=== PATIENT | female | born 1965 | race Caucasian/White ===

== ENCOUNTER → 2017-04-29 | Outpatient (CLI) | payer OTHER ==
[~2017-04-29] MED LIST: ALPR0.5T PO; PANT20TA2 PO; ZLP10T PO
--- NOTE | 2017-04-30 20:18 | Diagnostic Imaging Report ---
Bilateral screening mammogram The current study was also evaluated with a Computer Aided Detection (CAD) system. Indication: Screening. No current complaints stated on the questionnaire. COMPARISON: 04/15/16. FINDINGS: The breasts are composed of heterogeneously dense parenchyma which may decrease mammographic sensitivity. No mass, architectural distortion or suspicious cluster of calcification seen. Allowing for technique and positional differences, no suspicious change is seen. IMPRESSION: No significant change. ACR BI-RADS Category 2: Benign findings. Result letter will be mailed to the patient. Note: At least 10% of breast cancer is not imaged by mammography. Dictated by: Dictated on workstation # [id number]
== END ==
LOC: RAD 10:03
PROVIDERS: ATTEND Nurse Practitioner Adult Health
DX: Z12.31 Encounter for screening mammogram for malignant neoplasm of breast (principal)
CPT/HCPCS: 77067

== ENCOUNTER 2018-02-04 08:44 | Emergency (ER) | payer OTHER ==
[~2018-02-04] VITALS: Ht 154.9 cm; Wt 64.9 kg
[2018-02-04 09:19] LABS: BILIRUBIN,URINE NEGATIVE (NEGATIVE); CLARITY,URINE CLEAR; COLOR,URINE YELLOW; GLUCOSE, URINE (UA) NEGATIVE (NEGATIVE); KETONES,URINE NEGATIVE (NEGATIVE); LEUKOCYTE ESTERASE ,URINE NEGATIVE (NEGATIVE); NITRITE,URINE NEGATIVE (NEGATIVE); PH,URINE 5 (5-9); PROTEIN,URINE NEGATIVE (NEGATIVE); UROBILINOGEN,URINE NORMAL (NORMAL)
--- OUTSIDE RECORDS SUMMARY | 2018-02-04 09:23 | XMS REPORT ---
Author Author SHWETA FOSTER Organization [facility] Address [address] [place] [address] Care Team Providers Care Ballet Professor Name Role Phone SHWETA FOSTER Unavailable PROBLEMS Type Condition ICD9-CM Code DNZ30-CP Code Onset Dates Condition Status SNOMED Code Problem Primary insomnia F51.01 Active 6832617 Problem Postmenopausal HRT (hormone replacement therapy) Z79.890 Active 42431419 Problem Acute seasonal allergic rhinitis due to other allergen J30.89 Active 42347663 Problem Other chronic pain G89.29 Active 48987510 Problem Wellness examination Z00.00 Active 905545389 Problem Anxiety disorder, unspecified type F41.9 Active 624338812 Problem Dorsalgia, unspecified M54.9 Active 642455413 Problem Chronic GERD K21.9 Active 132019417 ALLERGIES No Information SOCIAL HISTORY Never Assessed PLAN OF CARE VITAL SIGNS MEDICATIONS Medication Instructions Dosage Frequency Start Date End Date Duration Status Xanax 0.5 MG Orally Three times a day 1 tablet 8h 28 days Active Ambien 10 mg Orally Once a day 1 tablet at bedtime as needed 24h 28 days Active RESULTS No Results PROCEDURES No Known procedures IMMUNIZATIONS No Known Immunizations MEDICAL (GENERAL) HISTORY Type Description Date Medical History insomnia Medical History anxiety Medical History chronic back pain Surgical History partial hysterectomy 1996 Surgical History Right knee scope 2001 Surgical History Cholecystectomy 2002 Surgical History Bilaterial plantar fascia release 2013 Surgical History gastric sleeve Hospitalization History for surgery only
--- OUTSIDE RECORDS SUMMARY | 2018-02-04 09:23 | XMS REPORT ---
Author Author SHWETA FOSTER Organization [employer] Address Unknown Phone Unavailable Care Team Providers Care Twisthand Name Role Phone SHWETA FOSTER Unavailable Allergies No Known Allergies Problems No Known Problems Medications Medication Code System Code Instructions Start Date End Date Status Dosage Xanax [facility] [address]-75 0.5 MG Orally Three times a day 1 tablet Ambien [facility] [address]-01 10 MG Orally Once a day 1 tablet at bedtime as needed Results No Known Results Summary Purpose eClinicalWorks Submission
--- OUTSIDE RECORDS SUMMARY | 2018-02-04 09:23 | XMS REPORT ---
Author Author SHWETA FOSTER [facility] Address [address] [place] [address] Care Team Providers Care Chief Lock Tender Operator Name Role Phone SHWETA FOSTER Unavailable PROBLEMS Type Condition ICD9-CM Code KWD35-EE Code Onset Dates Condition Status SNOMED Code Problem Wellness examination Z00.00 Active 942391833 Problem Anxiety disorder, unspecified type F41.9 Active 855658426 Problem Primary insomnia F51.01 Active 8458714 Problem Postmenopausal HRT (hormone replacement therapy) Z79.890 Active 96330588 ALLERGIES Unknown Allergies SOCIAL HISTORY No smoking Hx information available PLAN OF CARE VITAL SIGNS MEDICATIONS Medication Instructions Dosage Frequency Start Date End Date Duration Status Doxycycline Hyclate 100 MG Orally every 12 hrs 1 capsule 12h Nov, Nov, 10 days Active RESULTS No Results PROCEDURES No Known procedures IMMUNIZATIONS No Known Immunizations
--- OUTSIDE RECORDS SUMMARY | 2018-02-04 09:23 | XMS REPORT ---
Author Author SHWETA FOSTER [facility] eClinicalWorks Address Unknown Phone Unavailable Care Team Providers Care Oil Well Cable Tool Driller Name Role Phone SHWETA FOSTER Unavailable Allergies No Known Allergies Problems Problem Type Condition Code Onset Dates Condition Status Problem Anxiety disorder, unspecified type F41.9 Active Problem Postmenopausal HRT (hormone replacement therapy) Z79.890 Active Problem Primary insomnia F51.01 Active Medications Medication Code System Code Instructions Start Date End Date Status Dosage Alprazolam [facility] 51164098206 0.5 MG Orally Twice a day 1 tablet Premarin [facility] [address]-63 0.3 MG Orally Once a day March 11, 2016 1 tablet Zolpidem Tartrate [facility] [address]-86 10 mg Orally at bedtime 1 tablet Results No Known Results Summary Purpose eClinicalWorks Submission
--- OUTSIDE RECORDS SUMMARY | 2018-02-04 09:23 | XMS REPORT ---
Author Author SHWETA FOSTER Organization [facility] Address [address] [place] [address] Care Team Providers Care Crm Marketing Specialist Name Role Phone SHWETA FOSTER Unavailable PROBLEMS Type Condition ICD9-CM Code IXA18-ZC Code Onset Dates Condition Status SNOMED Code Problem Primary insomnia F51.01 Active 3010574 Problem Postmenopausal HRT (hormone replacement therapy) Z79.890 Active 97433821 Problem Acute seasonal allergic rhinitis due to other allergen J30.89 Active 06251627 Problem Other chronic pain G89.29 Active 61785453 Problem Wellness examination Z00.00 Active 829197235 Problem Anxiety disorder, unspecified type F41.9 Active 481564470 Problem Dorsalgia, unspecified M54.9 Active 834208973 Problem Chronic GERD K21.9 Active 969345454 ALLERGIES No Information SOCIAL HISTORY Never Assessed PLAN OF CARE VITAL SIGNS MEDICATIONS No Known Medications RESULTS Name Result Date Reference Range Mammogram, Bilateral Screening 2017-04-29 PROCEDURES No Known procedures IMMUNIZATIONS No Known Immunizations MEDICAL (GENERAL) HISTORY Type Description Date Medical History insomnia Medical History anxiety Medical History chronic back pain Surgical History partial hysterectomy 1996 Surgical History Right knee scope 2001 Surgical History Cholecystectomy 2002 Surgical History Bilaterial plantar fascia release 2012 Surgical History gastric sleeve Hospitalization History for surgery only
--- OUTSIDE RECORDS SUMMARY | 2018-02-04 09:23 | XMS REPORT ---
Author Author SHWETA FOSTER [facility] Address [address] [place] [address] Care Team Providers Care Rib Puller Name Role Phone JUANITO FOSTERNETTE Unavailable PROBLEMS Type Condition ICD9-CM Code LUX13-BU Code Onset Dates Condition Status SNOMED Code Problem Wellness examination Z00.00 Active 739359349 Problem Anxiety disorder, unspecified type F41.9 Active 906171632 Problem Primary insomnia F51.01 Active 8548985 Problem Postmenopausal HRT (hormone replacement therapy) Z79.890 Active 32923052 ALLERGIES Substance Reaction Event Type Date Status Morphine Sulfate rash Drug Allergy Nov, Active SOCIAL HISTORY No smoking Hx information available PLAN OF CARE Activity Details Follow Up 3 Months Reason:anxiety VITAL SIGNS Height 61 in 2016-12-19 Weight 146.2 lbs 2016-12-19 Temperature 98.3 degrees Fahrenheit 2016-12-19 Heart Rate 66 bpm 2016-12-19 Respiratory Rate 16 2016-12-19 BMI 27.62 kg/m2 2016-12-19 Blood pressure systolic 110 mmHg 2016-12-19 Blood pressure diastolic 72 mmHg 2016-12-19 MEDICATIONS Medication Instructions Dosage Frequency Start Date End Date Duration Status Soma 350 MG Orally 2 times a day 1 tablet as needed 12h 10 Oct, 2015 Active Premarin 0.625 MG Orally Once a day TAKE ONE (1) TABLET BY MOUTH DAILY 24h 30 Active Xanax 0.5 MG Orally Three times a day 1 tablet 8h 28 days Active Ambien 10 mg Orally Once a day 1 tablet at bedtime as needed 24h 30 days Active RESULTS Name Result Date Reference Range TSH 2016-12-19 TSH 2.060 0.450-4.500 CBC 2016-12-19 WBC 5.1 3.4-10.8 RBC 4.45 3.77-5.28 Hemoglobin 13.1 11.1-15.9 Hematocrit 40.3 34.0-46.6 MCV 91 79-97 MCH 29.4 26.6-33.0 MCHC 32.5 31.5-35.7 RDW 13.8 12.3-15.4 Platelets 227 150-379 Neutrophils 57 Lymphs 33 Monocytes 9 Eos 1 Basos 0 Neutrophils (Absolute) 2.9 1.4-7.0 Lymphs (Absolute) 1.7 0.7-3.1 Monocytes(Absolute) 0.5 0.1-0.9 Eos (Absolute) 0.0 0.0-0.4 Baso (Absolute) 0.0 0.0-0.2 Immature Granulocytes 0 Immature Grans (Abs) 0.0 0.0-0.1 LIPID PANEL 2016-12-19 Cholesterol, Total 184 100-199 Triglycerides 64 0-149 HDL Cholesterol 93 >39 VLDL Cholesterol Jesus 13 5-40 LDL Cholesterol Calc 78 0-99 CMP 2016-12-19 Glucose, Serum 89 65-99 BUN 12 6-24 Creatinine, Serum 0.77 0.57-1.00 eGFR If NonAfricn Am 89 >59 eGFR If Africn Am 103 >59 BUN/Creatinine Ratio 16 9-23 Sodium, Serum 140 134-144 Potassium, Serum 4.1 3.5-5.2 Chloride, Serum 101 96-106 Carbon Dioxide, Total 24 18-29 Calcium, Serum 9.2 8.7-10.2 Protein, Total, Serum 7.1 6.0-8.5 Albumin, Serum 4.3 3.5-5.5 Globulin, Total 2.8 1.5-4.5 A/G Ratio 1.5 1.1-2.5 Bilirubin, Total 0.7 0.0-1.2 Alkaline Phosphatase, S 61 39-117 AST (SGOT) 14 0-40 ALT (SGPT) 10 0-32 PROCEDURES Procedure Date Ordered Related Diagnosis Body Site COMPLETE CBC W/AUTO DIFF WBC Dec 19, 2016 COMPREHEN METABOLIC PANEL Dec 19, 2016 ASSAY THYROID STIM HORMONE Dec 19, 2016 LIPID PANEL Dec 19, 2016 VENIPUNCT, ROUTINE* Dec 19, 2016 Preventive Care Est Pt. Age 40-64 Dec 19, 2016 IMMUNIZATIONS No Known Immunizations
--- OUTSIDE RECORDS SUMMARY | 2018-02-04 09:23 | XMS REPORT ---
Author Author SHWETA FOSTER [facility] eClinicalWorks Address Unknown Phone Unavailable Care Team Providers Care Glass Blower Name Role Phone SHWETA FOSTRE CP Unavailable Allergies, Adverse Reactions, Alerts Substance Reaction Event Type Morphine Sulfate rash Drug Allergy Problems Problem Type Condition Code Onset Dates Condition Status Problem Anxiety 300.00 Active Assessment Thoracic outlet syndrome G54.0 Active Problem Insomnia 780.52 Active Medications Medication Code System Code Instructions Start Date End Date Status Dosage Soma [facility] [address]-21 350 MG Orally 2 times a day Nov 08, 2015 1 tablet as needed Xanax [facility] [address]-05 0.5 MG Orally Three times a day 1 tablet Ambien [facility] [address]-45 10 MG Orally Once a day 1 tablet at bedtime as needed Procedures Procedure Coding System Code Date Office Visit, Est Pt., Level 3 CPT-4 69815 Nov 08, 2015 Vital Signs Date/Time: Nov 08, 2015 Temperature 97.6 F Weight 176.1 lbs Height 61 in BMI 33.27 Index Blood Pressure Diastolic 74 mmHg Blood Pressure Systolic 124 mmHg Cardiac Monitoring Heart Rate 72 bpm Results No Known Results Summary Purpose eClinicalWorks Submission
--- OUTSIDE RECORDS SUMMARY | 2018-02-04 09:23 | XMS REPORT ---
Author Author SHWETA FOSTER Organization [facility] Address [address] [place] [address] Care Team Providers Care Yard Manager Name Role Phone SHWETA FOSTER Unavailable PROBLEMS Type Condition ICD9-CM Code KKD80-WB Code Onset Dates Condition Status SNOMED Code Problem Acute seasonal allergic rhinitis due to other allergen J30.89 Active 45139454 Problem Wellness examination Z00.00 Active 847385030 Problem Postmenopausal HRT (hormone replacement therapy) Z79.890 Active 93655823 Problem Anxiety disorder, unspecified type F41.9 Active 272441683 Problem Primary insomnia F51.01 Active 5120403 ALLERGIES No Information SOCIAL HISTORY Never Assessed [...]
--- OUTSIDE RECORDS SUMMARY | 2018-02-04 09:23 | XMS REPORT ---
Author Author SHWETA FOSTER [facility] eClinicalWorks Address Unknown Phone Unavailable Care Team Providers Care Assisted Living Nursing Director Name Role Phone SHWETA FOSTER Unavailable Allergies No Known Allergies Problems Problem Type Condition Code Onset Dates Condition Status Problem Anxiety 300.00 Active Problem Insomnia 780.52 Active Medications Medication Code System Code Instructions Start Date End Date Status Dosage Promethazine-Codeine NDC [address]-28 6.25-10 MG/5ML Orally every 4-6 hours Nov 19, 2015 5 ml as needed Septra DS NDC 0 bid Nov 19, 2015 not defined Results No Known Results Summary Purpose eClinicalWorks Submission
--- OUTSIDE RECORDS SUMMARY | 2018-02-04 09:23 | XMS REPORT ---
Author Author SHWETA FOSTER [facility] eClinical[employer] Address Unknown Phone Unavailable Care Team Providers Care Bulk Cooler Installer Name Role Phone SHWETA FOSTER Unavailable Allergies No Known Allergies Problems Problem Type Condition Code Onset Dates Condition Status Problem Anxiety disorder, unspecified type F41.9 Active Problem Postmenopausal HRT (hormone replacement therapy) Z79.890 Active Problem Primary insomnia F51.01 Active Assessment Environmental allergies Z91.09 Active Medications Medication Code System Code Instructions Start Date End Date Status D[facility] [address]-09 20 mg Orally Once a day June 06, 2016Jun 1 tablet tid x3, bid x 3, d x 3 Results No Known Results Summary Purpose eClinicalWorks Submission
--- OUTSIDE RECORDS SUMMARY | 2018-02-04 09:23 | XMS REPORT ---
Author Author SHWETA FOSTER [facility] eClinicalWorks Address Unknown Phone Unavailable Care Team Providers Care Jewellery Designer Name Role Phone SHWETA FOSTER CP Unavailable Allergies, Adverse Reactions, Alerts Substance Reaction Event Type Morphine Sulfate rash Drug Allergy Problems Problem Type Condition ICD-9 Code Onset Dates Condition Status Problem Anxiety 300.00 Active Assessment Insomnia 780.52 Active Problem Insomnia 780.52 Active Assessment Anxiety 300.00 Active Medications Medication Code System Code Instructions Start Date End Date Status Dosage Ambien [facility] [address]-98 10 MG Orally Once a day 1 tablet at bedtime as needed Xanax [facility] [address]-14 0.5 MG Orally Three times a day 1 tablet Procedures Procedure Coding System Code Date Office Visit, Est Pt., Level 3 CPT-4 78442 Aug 14, 2015 Vital Signs Date/Time: Aug 14, 2015 Temperature 97.7 F Weight 206 lbs Height 61 in BMI 38.92 Index Blood Pressure Diastolic 68 mmHg Blood Pressure Systolic 112 mmHg Cardiac Monitoring Heart Rate 80 bpm Results No Known Results Summary Purpose eClinicalWorks Submission
--- OUTSIDE RECORDS SUMMARY | 2018-02-04 09:23 | XMS REPORT ---
Author SHWETA Ramesh [facility] eClinicalWorks Address Unknown Phone Unavailable Care Team Providers Care Metal Loader Name Role Phone SHWETA FOSTER Unavailable Allergies No Known Allergies Problems Problem Type Condition Code Onset Dates Condition Status Problem Anxiety disorder, unspecified type F41.9 Active Problem Postmenopausal HRT (hormone replacement therapy) Z79.890 Active Problem Primary insomnia F51.01 Active Medications Medication Code System Code Instructions Start Date End Date Status Dosage Alprazolam [facility] 41850060297 0.5 MG TAKE ONE TABLET BY MOUTH TWICE DAILY Results No Known Results Summary Purpose eClinicalWorks Submission
--- OUTSIDE RECORDS SUMMARY | 2018-02-04 09:23 | XMS REPORT ---
Author Author AFTAB BURROUGHS Organization [employer] Address Unknown Phone Unavailable Care Team Providers Care Pet Care Assistant Name Role Phone AFTAB BURROUGHS CP Unavailable Allergies No Known Allergies Problems No Known Problems Medications Medication Code System Code Instructions Start Date End Date Status Dosage Xanax [facility] [address]-67 0.5 MG Orally Three times a day 1 tablet Ambien [facility] [address]-09 10 MG Orally Once a day 1 tablet at bedtime as needed Results No Known Results Summary Purpose eClinicalWorks Submission
--- OUTSIDE RECORDS SUMMARY | 2018-02-04 09:23 | XMS REPORT ---
Author Author SHWETA FOSTER Organization [employer] Address Unknown Phone Unavailable Care Team Providers Care Transitional Care Manager Name Role Phone SHWETA FOSTER Unavailable Allergies No Known Allergies Problems No Known Problems Medications Medication Code System Code Instructions Start Date End Date Status Dosage Ambien [facility] [address]-21 10 MG Orally Once a day 1 tablet at bedtime as needed Xanax [facility] [address]-62 0.5 MG Orally Three times a day 1 tablet Results No Known Results Summary Purpose eClinicalWorks Submission
--- OUTSIDE RECORDS SUMMARY | 2018-02-04 09:23 | XMS REPORT ---
Author Author SHWETA FOSTER [facility] Address [address] [place] [address] Care Team Providers Care Principal Clerk Typist Name Role Phone SHWETA FOSTER Unavailable PROBLEMS Type Condition ICD9-CM Code BFX61-WL Code Onset Dates Condition Status SNOMED Code Problem Wellness examination Z00.00 Active 385045115 Problem Primary insomnia F51.01 Active 0202269 Problem Anxiety disorder, unspecified type F41.9 Active 696561946 Problem Postmenopausal HRT (hormone replacement therapy) Z79.890 Active 89641575 ALLERGIES Unknown Allergies SOCIAL HISTORY No smoking [...]
--- OUTSIDE RECORDS SUMMARY | 2018-02-04 09:24 | XMS REPORT | Continuity of Care Document ---
Author Author [facility] Organization [facility] Address Unknown Phone Unavailable Allergies Active Description Code Type Severity Reaction Onset Reported/Identified Relationship to Patient Clinical Status Yes loracarbef [id number] Drug Allergy Unknown N/A 12/18/2010 Yes morphine [id number] Drug Allergy Unknown N/A 12/18/2010 Medications There is no data. Problems Date Dx Coded Attending Type Code Diagnosis Diagnosed By 12/18/2010 Ot 564.00 UNSPEC CONSTIPATION 12/18/2010 Ot 787.3 FLATUL/ ERUCTAT/GAS PAIN 12/18/2010 Ot 789.03 ABDOMINAL PAIN, RIGHT LOWER QUADRANT 01/21/2013 Ot 535.50 UNSP GASTRITIS GASTRODUODENITIS W/O ME 01/21/2013 Ot 789.00 ABDOMINAL PAIN, UNSPECIFIED SITE 01/26/2015 Ot V72.84 01/31/2015 Ot 455.0 INT HEMORRHOID W/O COMPL 01/31/2015 Ot 455.3 EXT HEMORRHOID W/O COMPL 01/31/2015 Ot 562.10 DIVERTICULOSIS COLON (W/O MENT OF HEMORR 01/31/2015 Ot V76.51 SCREEN MAL NEOP-COLON 04/20/2015 GUILLERMINA MICHELLE MD Ot 530.11 REFLUX ESOPHAGITIS 04/20/2015 GUILLERMINA MICHELLE MD Ot 535.50 UNSP GASTRITIS GASTRODUODENITIS W/O ME 04/20/2015 GUILLERMINA MICHELLE MD Ot 553.3 DIAPHRAGMATIC HERNIA 05/16/2015 SHWETA FOSTER KIL[facility] FE[facility]ER Ot V76.12 05/16/2015 BURTON RUSSELL DO Ot 793.80 03/19/2016 Ot V76.12 OTH SCREEN MAMMO-MALIGN NEOPLASM OF MINGO 03/19/2016 Ot V76.12 OTH SCREEN MAMMO-MALIGN NEOPLASM OF [place] 03/19/2016 MOOKIE JONES, AMINATA Haney Ot 355.6 PLANTAR NERVE LESION 03/19/2016 NOMAN GUERRA, RICHA Haney Ot V76.12 OTH SCREEN MAMMO-MALIGN NEOPLASM OF [place] 03/19/2016 Ot V72.84 EXAM PRE- OPERATIVE NOS 03/19/2016 FOSTERSHWETA KILN FEEDER Ot V76.12 OTH SCREEN MAMMO-MALIGN NEOPLASM OF [place] 03/19/2016 COSENS DO, BURTON L Ot 793.80 UNSPEC ABNORMAL MAMMOGRAM 03/19/2016 GUILLERMINA MICHELLE MD Ot V72.84 EXAM PRE-OPERATIVE NOS 04/03/2016 SHWETA FOSTER KILN FEEDER Ot Z12.31 ENCNTR SCREEN MAMMOGRAM FOR MALIGNANT NE 04/04/2016 SHWETA FOSTER KILN FEEDER Ot Z12.31 ENCNTR SCREEN MAMMOGRAM FOR MALIGNANT NE 04/16/2016 SHWETA FOSTER KILN FEEDER Ot R92.8 OTH ABN AND INCONCLUSIVE FINDINGS ON DX 04/16/2016 SHWETA FOSTER KILN FEEDER Ot R92.8 OTH ABN AND INCONCLUSIVE FINDINGS ON DX 04/16/2016 SHWETA FOSTER KILN FEEDER Ot R92.8 OTH ABN AND INCONCLUSIVE FINDINGS ON DX 04/19/2016 Ot V76.12 OTH SCREEN MAMMO-MALIGN NEOPLASM OF [place] 04/19/2016 Ot V76.12 OTH SCREEN MAMMO-MALIGN NEOPLASM OF [place] 04/19/2016 MOOKIE CHEATHAM, AMINATA G Ot 355.6 PLANTAR NERVE LESION 04/19/2016 NOMAN GUERRA, RICHA Haney Ot V76.12 OTH SCREEN MAMMO-MALIGN NEOPLASM OF [place] 04/19/2016 Ot V72.84 EXAM PRE- OPERATIVE NOS 04/19/2016 SHWETA FOSTER KILN FEEDER Ot V76.12 OTH SCREEN MAMMO-MALIGN NEOPLASM OF [place] 04/19/2016 COSENS DO, BURTON L Ot 793.80 UNSPEC ABNORMAL MAMMOGRAM 04/19/2016 GUILLERMINA MICHELLE MD Ot V72.84 EXAM PRE-OPERATIVE NOS 05/01/2016 SHWETA FOSTER KILN FEEDER Ot Z12.31 ENCNTR SCREEN MAMMOGRAM FOR MALIGNANT NE 05/01/2016 SHWETA FOSTER KILN FEEDER Ot R92.8 OTH ABN AND INCONCLUSIVE FINDINGS ON DX 04/29/2017 SHWETA FOSTER KILN FEEDER Ot Z12.31 ENCNTR SCREEN MAMMOGRAM FOR MALIGNANT NE 04/29/2017 SHWETA FOSTER KILN FEEDER Ot R92.8 OTH ABN AND INCONCLUSIVE FINDINGS ON DX 05/01/2017 SHWETA FOSTER KILN FEEDER Ot Z12.31 ENCNTR SCREEN MAMMOGRAM FOR MALIGNANT NE 05/18/2017 SHWETA FOSTER KILN FEEDER Ot Z12.31 ENCNTR SCREEN MAMMOGRAM FOR MALIGNANT NE Procedures There is no data. Results There is no data. Encounters ACCT No. Visit Date/Time Discharge Status Pt. Type Provider Facility Loc./Unit Complaint [id number] 04/29/2017 10:03:00 04/29/2017 23:59:59 CLS Outpatient GABRIEL FOSTERJohn Davis [facility]IL[facility] RAD SCREENING [id number] 04/15/2016 08:02:00 04/15/2016 23:59:59 CLS Outpatient SHWETA FOSTER [facility] RAD ABNORMAL MAMMO [id number] 04/03/2016 07:35:00 04/03/2016 23:59:59 CLS Outpatient FOSTERSHWETA NUÑEZ [facility] RAD SCREENING [id number] 04/20/2015 08:55:00 04/20/2015 11:45:00 DIS Out[facility] [id number] 04/18/2015 06:10:00 04/18/2015 23:59:59 CLS Outpatient GUILLERMINA MICHELLE MD [facility] PREOP [id number] 04/04/2015 08:17:00 04/04/2015 23:59:59 CLS Outpatient BURTON RUSSELL DO [facility] RAD [id number] 03/28/2015 07:32:00 03/28/2015 23:59:59 CLS Outpatient SHWETA FOSTER [facility] RAD [id number] 01/12/2014 09:04:00 01/12/2014 23:59:59 CLS Outpatient RICHA TINEO MD [facility] RAD [id number] 09/28/2013 15:39:00 09/28/2013 23:59:59 [facility] Outpatient AMINATA DAMICO DPM [facility] [id number] 02/20/2015 12:34:00 Document Registration [id number] 01/31/2015 07:39:00 Document Registration [id number] 01/25/2015 06:22:00 Document Registration [id number] 01/21/2013 08:31:00 Document Registration [id number] 09/01/2012 15:28:00 Document Registration [id number] 08/18/2011 07:21:00 Document Registration [id number] 12/18/2010 08:04:00 Document Registration
--- OUTSIDE RECORDS SUMMARY | 2018-02-04 09:24 | XMS REPORT ---
Author Author SHWETA FOSTER Organization [facility] Address [address] [place] [address] Care Team Providers Care Ancillary Specialist Name Role Phone SHWETA FOSTER Unavailable PROBLEMS Type Condition ICD9-CM Code TBG75-NT Code Onset Dates Condition Status SNOMED Code Problem Wellness examination Z00.00 Active 011017121 Problem Anxiety disorder, unspecified type F41.9 Active 601340126 Problem Primary insomnia F51.01 Active 3244347 Problem Postmenopausal HRT (hormone replacement therapy) Z79.890 Active 63087149 ALLERGIES No Information SOCIAL HISTORY Never Assessed PLAN OF CARE VITAL SIGNS MEDICATIONS Medication Instructions Dosage Frequency Start Date End Date Duration Status Xanax 0.5 MG Orally Three times a day 1 tablet 8h 28 days Active Premarin 0.625 MG Orally Once a day TAKE ONE (1) TABLET BY MOUTH DAILY 24h 30 Active Ambien 10 mg Orally Once a [...]
--- OUTSIDE RECORDS SUMMARY | 2018-02-04 09:24 | XMS REPORT ---
Author Author SHWETA FOSTER [facility] eClinicalWorks Address Unknown Phone Unavailable Care Team Providers Care Montessori Paraprofessional Name Role Phone SHWETA FOSTER Unavailable Allergies No Known Allergies Problems Problem Type Condition Code Onset Dates Condition Status Problem Anxiety 300.00 Active Problem Insomnia 780.52 Active Medications Medication Code System Code Instructions Start Date End Date Status Dosage Ambien [facility] [address]-67 10 MG Orally Once a day 1 tablet at bedtime as needed Xanax [facility] [address]-80 0.5 MG Orally Three times a day 1 tablet Results No Known Results Summary Purpose eClinicalWorks Submission
--- OUTSIDE RECORDS SUMMARY | 2018-02-04 09:24 | XMS REPORT ---
Author Author SHWETA FOSTER [facility] Address [address] [place] [address] Care Team Providers Care Hair Spinner Name Role Phone SHWETA FOSTER Unavailable PROBLEMS Type Condition ICD9-CM Code MGG10-NX Code Onset Dates Condition Status SNOMED Code Problem Wellness examination Z00.00 Active 143198793 Problem Anxiety disorder, unspecified type F41.9 Active 710744823 Problem Primary insomnia F51.01 Active 4476588 Problem Postmenopausal HRT (hormone replacement therapy) Z79.890 Active 63709244 ALLERGIES Unknown Allergies SOCIAL HISTORY No smoking Hx information available PLAN OF CARE VITAL SIGNS MEDICATIONS Medication Instructions Dosage Frequency Start Date End Date Duration Status Premarin 0.3 MG Orally Once a day 1 tablet 24h Feb, 30 day(s) Active RESULTS No Results PROCEDURES No Known procedures IMMUNIZATIONS No Known Immunizations
--- OUTSIDE RECORDS SUMMARY | 2018-02-04 09:24 | XMS REPORT ---
Author Author SHWETA FOSTER [facility] eClinicalWorks Address Unknown Phone Unavailable Care Team Providers Care Basketball Commentator Name Role Phone SHWETA FOSTER Unavailable Allergies No Known Allergies Problems Problem Type Condition Code Onset Dates Condition Status Problem Anxiety disorder, unspecified type F41.9 Active Problem Postmenopausal HRT (hormone replacement therapy) Z79.890 Active Problem Primary insomnia F51.01 Active Medications Medication Code System Code Instructions Start Date End Date Status Dosage Nabumetone [facility] [address]-20 500 MG Orally Twice a day Sep 25, 2016Sep 1 tablet Results No Known Results Summary Purpose eClinicalWorks Submission
[2018-02-04 09:31] LABS: BACTERIA,URINE NEGATIVE /HPF; SQUAMOUS EPITHELIAL CELL,UR 25-50 /HPF; WBC,URINE 0-2 /HPF
[2018-02-04 09:55] LABS: BASOPHILS % (AUTO) 1 % (0-10); EOSINOPHILS # (AUTO) 0.1 10^3/uL (0.0-0.3); EOSINOPHILS % (AUTO) 1 % (0-10); HEMATOCRIT 37 % (35-52); HEMOGLOBIN 12.7 G/DL (11.5-16.0); LYMPHOCYTES # (AUTO) 1.7 X 10^3 (1.0-4.0); LYMPHOCYTES % (AUTO) 40 % (12-44); MEAN CORPUSCULAR HEMOGLOBIN 31 PG (25-34); MEAN CORPUSCULAR HGB CONC 34 G/DL (32-36); MEAN CORPUSCULAR VOLUME 91 FL (80-99); MEAN PLATELET VOLUME 10.7 FL (7.4-10.4); MONOCYTES # (AUTO) 0.4 X 10^3 (0.0-1.0); MONOCYTES % (AUTO) 9 % (0-12); NEUTROPHILS # (AUTO) 2.1 X 10^3 (1.8-7.8); NEUTROPHILS % (AUTO) 50 % (42-75); PLATELET COUNT 204 10^3/uL (130-400); RED BLOOD COUNT 4.09 10^6/uL (4.35-5.85); RED CELL DISTRIBUTION WIDTH 13.4 % (10.0-14.5); WHITE BLOOD COUNT 4.3 10^3/uL (4.3-11.0)
--- NOTE | 2018-02-04 10:11 | ED Abdominal Pain ---
General Chief Complaint: Abdominal/GI Problems Stated Complaint: ABD PAIN Nursing Triage Note: AMB TO ROOM C/O ONSET OF R FLANKK PAIN LAST NIGHT AT 8PM Sepsis Screen: No Definite Risk Source of Information: Patient Exam Limitations: No Limitations History of Present Illness Date Seen by Provider: Feb 04, 2018 Time Seen by Provider: 10:04 Initial Comments The patient is a 52-year-old white female who developed right lower quadrant abdominal pain last evening. This persisted through the night. She had a great deal of difficulty sleeping. The only comfortable place was on her back. She had a bowel movement this morning. There has been no nausea or vomiting. It is noted that she has a gastric sleeve for weight loss. There has been no fever and no chills. She reported that this morning as she drove to work every [place] she works for a [employer] and her nurses insisted that she come here for further evaluation. Caused her considerable pain in the right lower quadrant. Timing/Duration: 12-24 Hours Severity/Quality: Moderate Location: [facility] Allergies and Home Medications Allergies Coded Allergies: loracarbef (Unverified Allergy, Unknown, 12/18/10) morphine (Unverified Allergy, Unknown, 12/18/10) Home Medications Alprazolam 0.5 Mg Tablet, 0.5 MG PO NEEDED, (Reported) Pantoprazole Sodium 20 Mg Tablet.dr, 40 MG PO DAILY Prescribed by: GUILLERMINA MICHELLE on 04/20/15 1036 Zolpidem Tartrate 10 Mg Tab, 10 MG PO HS, (Reported) Patient Home Medication List Home Medication List Reviewed: Yes Review of Systems Constitutional: see HPI EENTM: No Symptoms Reported Respiratory: No Symptoms Reported Cardiovascular: No Symptoms Reported Gastrointestinal: See HPI Genitourinary: No Symptoms Reported Musculoskeletal: no symptoms reported Skin: no symptoms reported Psychiatric/Neurological: No Symptoms Reported Past Nxdflen-Dkpmpi-Geotoj Hx Patient Social History Alcohol Use: Denies Use Recreational Drug Use: No Smoking Status: Never a Smoker Recent Foreign Travel: No Contact w/Someone Who Travel: No Recent Infectious Disease Expo: No Surgeries History of Surgeries: Yes (GB; PARTIAL HYSTERECTOMY; ELDA. 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 Gastrointestinal History of Gastrointestinal Di: No Musculoskeletal History of Musculoskeletal Dis: No Endocrine History of Endocrine Disorders: No Cancer History of Cancer: No Physical Exam Vital Signs VS - Last 72 Hours, by Label 02/04/18 08:57 Temp 97.9 Pulse 68 Resp 18 B/P (MAP) 139/92 (108) Pulse Ox 100 Capillary Refill : Less Than 3 Seconds General Appearance: moderate distress HEENT: normal ENT inspection Neck: full range of motion Respiratory: chest non-tender, lungs clear, normal breath sounds, no respiratory distress, no accessory muscle use Cardiovascular: normal peripheral pulses, regular rate, rhythm, no edema, no gallop, no JVD, no murmur Gastrointestinal: other (exquisitely tender to palpation at McBurney's point) Extremities: normal range of motion, non-tender, normal inspection, no pedal edema, no calf tenderness, normal capillary refill, pelvis stable Back: normal inspection Neurologic/Psychiatric: pattern drum 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-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 nml as tested, no motor/sensory deficits, alert, normal mood/affect, oriented x 3 Skin: normal color, warm/dry Lymphatic: no adenopathy Progress/Results/Core Measures Results/Orders Lab Results Laboratory Tests Test 02/04/18 09:04 02/04/18 09:43 Range/Units Urine Color YELLOW Urine Clarity CLEAR Urine pH 5 5-9 Urine Specific Hettinger 1.010 L 1.016-1.022 Urine Protein NEGATIVE NEGATIVE Urine Glucose (UA) NEGATIVE NEGATIVE Urine Ketones NEGATIVE NEGATIVE Urine Nitrite NEGATIVE NEGATIVE Urine Bilirubin NEGATIVE NEGATIVE Urine Urobilinogen NORMAL NORMAL MG/DL Urine Leukocyte Esterase NEGATIVE NEGATIVE Urine RBC (Auto) NEGATIVE NEGATIVE Urine RBC NONE /HPF Urine WBC 0-2 /HPF Urine Squamous Epithelial Cells 25-50 H /HPF Urine Crystals NONE /LPF Urine Bacteria NEGATIVE /HPF Urine Casts NONE /LPF Urine Mucus NEGATIVE /LPF Urine Culture Indicated NO White Blood Count 4.3 4.3-11.0 10^3/uL Red Blood Count 4.09 L 4.35-5.85 10^6/uL Hemoglobin 12.7 11.5-16.0 G/DL Hematocrit 37 35-52 % Mean Corpuscular Volume 91 80-99 FL Mean Corpuscular Hemoglobin 31 25-34 PG Mean Corpuscular Hemoglobin Concent 34 32-36 G/DL Red Cell Distribution Width 13.4 10.0-14.5 % Platelet Count 204 130-400 10^3/uL Mean Platelet Volume 10.7 H 7.4-10.4 FL Neutrophils (%) (Auto) 50 42-75 % Lymphocytes (%) (Auto) 40 12-44 % Monocytes (%) (Auto) 9 0-12 % Eosinophils (%) (Auto) 1 0-10 % Basophils (%) (Auto) 1 0-10 % Neutrophils # (Auto) 2.1 1.8-7.8 X 10^3 Lymphocytes # (Auto) 1.7 1.0-4.0 X 10^3 Monocytes # (Auto) 0.4 0.0-1.0 X 10^3 Eosinophils # (Auto) 0.1 0.0-0.3 10^3/uL Basophils # (Auto) 0.0 0.0-0.1 10^3/uL Sodium Level 140 135-145 MMOL/L Potassium Level 4.5 3.6-5.0 MMOL/L Chloride Level 108 H 98-107 MMOL/L Carbon Dioxide Level 25 21-32 MMOL/L Anion Gap 7 5-14 MMOL/L Blood Urea Nitrogen 11 7-18 MG/DL Creatinine 0.79 0.60-1.30 MG/DL Estimat Glomerular Filtration Rate > 60 BUN/Creatinine Ratio 14 Glucose Level 84 70-105 MG/DL Calcium Level 8.9 8.5-10.1 MG/DL Total Bilirubin 0.5 0.1-1.0 MG/DL Aspartate Amino Transf (AST/SGOT) 17 5-34 U/L Alanine Aminotransferase (ALT/SGPT) 10 0-55 U/L Alkaline Phosphatase 43 40-136 U/L Total Protein 6.6 6.4-8.2 GM/DL Albumin 3.6 3.2-4.5 GM/DL Lipase 18 8-78 U/L My Orders Orders - EARLENE CHACON MD Ua Culture If Indicated (02/04/18 09:08) Cbc With Automated Diff (02/04/18 09:34) Comprehensive Metabolic Panel (02/04/18 09:34) Lipase (02/04/18 09:34) Ct Abd/Pelv W (Appendicitis) (02/04/18 10:03) Iohexol Injection (Omnipaque 350 Mg/Ml 1 (02/04/18 10:15) Ns (Ivpb) (Sodium Chloride 0.9%) (02/04/18 10:15) Fentanyl Injection (Sublimaze Injection (02/04/18 10:15) Hydromorphone Injection (Dilaudid Inject (02/04/18 11:00) Medications Given in ED Current Medications Medications Dose Ordered Sig/Dion Route Start Time Stop Time Status Last Admin Dose Admin Fentanyl Citrate 25 mcg Q1H PRN IVP 02/04/18 10:15 02/04/18 10:16 25 MCG Hydromorphone HCl 1 mg Q4H PRN IVP 02/04/18 11:00 02/04/18 10:56 1 MG Iohexol 100 ml ONCE ONCE IV 02/04/18 10:15 02/04/18 10:16 DC 02/04/18 11:00 100 ML Sodium Chloride 250 ml ONCE ONCE IV 02/04/18 10:15 02/04/18 10:16 DC 02/04/18 11:00 80 ML Vital Signs/I&O Vital Sign - Last 12Hours 02/04/18 08:57 Temp 97.9 Pulse 68 Resp 18 B/P (MAP) 139/92 (108) Pulse Ox 100 Blood Pressure Mean: 108 Departure Impression Impression: Primary Impression: right lower quadrant pain Additional Impression: right ovarian cyst Disposition: 01 HOME, SELF-CARE Condition: Stable/Unchanged Departure-Patient Inst. Decision time for Depature: 12:09 Referrals: [facility] (PCP/Family) Primary Care Physician Patient Instructions: No Instuctions Given Add. Discharge Instructions: All discharge instructions reviewed with patient and/or family. Voiced understanding. Use ibuprofen 600 mg 2 or 3 times daily or naproxen 440 mg twice daily as needed for pain. If pain related to the apparent no ovarian cyst one would expect this to johnnie within the week. If continued pain see Dr. Corona for second opinion EARLENE CHACON MD Feb 04, 2018 10:10
[2018-02-04] MEDS ORDERED: NS 250 ML (IVPB) BAG IV ONE (10:15)
[2018-02-04] MEDS ORDERED: IOHEXOL 350 MG/ML 100 ML (OMNIPAQUE 350) VIAL IV ONE (10:15)
[2018-02-04] MEDS ORDERED: fentaNYL INJECTION 100 MCG/2 ML AMP IVP PRN (10:15)
[2018-02-04 10:16] LABS: ALANINE AMINOTRANSFERASE 10 U/L (0-55); ALBUMIN 3.6 GM/DL (3.2-4.5); ALKALINE PHOSPHATASE 43 U/L (40-136); BILIRUBIN,TOTAL 0.5 MG/DL (0.1-1.0); BUN/CREATININE RATIO 14; CALCIUM 8.9 MG/DL (8.5-10.1); CARBON DIOXIDE 25 MMOL/L (21-32); CHLORIDE 108 MMOL/L (98-107); CREATININE SERUM 0.79 MG/DL (0.60-1.30); GFR ESTIMATED > 60; GLUCOSE 84 MG/DL (70-105); LIPASE 18 U/L (8-78); POTASSIUM 4.5 MMOL/L (3.6-5.0); SODIUM 140 MMOL/L (135-145); TOTAL PROTEIN 6.6 GM/DL (6.4-8.2)
[2018-02-04] MEDS ORDERED: HYDROmorphone (DILAUDID) 2 MG/ML VIAL IVP PRN (11:00)
--- NOTE | 2018-02-04 11:50 | Diagnostic Imaging Report ---
PROCEDURE: CT abdomen and pelvis with contrast, rule out appendicitis. TECHNIQUE: Multiple contiguous axial images were obtained through the abdomen and pelvis after the administration of intravenous contrast. INDICATION: Right lower quadrant pain starting last night. CORRELATION STUDY: 01/21/2013, 11/28/2010 FINDINGS: The lung bases with minimal dependent atelectasis, otherwise clear. Heart size is normal. Small hiatal hernia. There are surgical changes of the stomach. Liver without focal lesion. Gallbladder absent. There is mild prominence about the extrahepatic and intrahepatic biliary tree. Pancreas, spleen and adrenal glands appear relatively stable without acute abnormality. Abdominal aorta normal in contour. The kidneys with normal enhancement. No hydronephrosis or obstruction. 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 Distal ureters could not be completely traced. There is moderate severity fecal retention. The cecum sits low within the pelvis and crosses the midline. The appendix is located in the left lower quadrant and has an unremarkable appearance. The uterus is absent. There is a 2.6 x 2.3 cm cystic mass in the right posterior pelvis, may be very slightly increased, currently measuring 2.7 x 2.8 cm; previously 2.6 x 2.1 cm. Urinary bladder is unremarkable. Irregularity of the superior T12 endplate appears nonacute. IMPRESSION: 1. Negative for acute abnormality of the abdomen and/or pelvis. No findings to suggest acute appendicitis. 2. No evidence for obstructive uropathy. There is incidental note made of a right-sided duplicated collecting system with the distal ureters unable to be completely visualized. 3. Right pelvic cystic mass perhaps very slightly increased in size and likely associated with the right ovary. Dictated by: Dictated on workstation # [id number]
[2018-02-04 12:45] VITALS: BP 103/64
== END 2018-02-04 12:50 | disposition home or self-care (01) ==
LOC: EDUNIT# 08:44 → ER 08:45
DX: N83.201 Unspecified ovarian cyst, right side (principal); Z88.6 Allergy status to analgesic agent; Z88.8 Allergy status to other drugs, medicaments and biological substances; Z90.711 Acquired absence of uterus with remaining cervical stump
CPT/HCPCS: 36415; 74177; 80053; 81000; 83690; 85025; 96374; 96375

== ENCOUNTER → 2018-05-04 | Outpatient (CLI) | payer OTHER ==
[~2018-05-04] MED LIST changes: +ALPR0.5T7 PO; +ESTR1TAB27 PO; +FEXO1TAB43 PO; +MULT-153 PO; +OMEP20CA12 PO; +OXYC-197 PO
--- NOTE | 2018-05-04 10:22 | Diagnostic Imaging Report ---
Indication: Screening. The current study was also evaluated with a Computer Aided Detection (CAD) system. Comparison made with prior examination of 04/29/2017 back through 08/18/2011 3D tomosynthesis was also performed and reviewed. Findings: There is heterogeneously dense fibroglandular tissue bilaterally. There is a well circumscribed ovoid area in the retroareolar region right breast on CC projection which is not definitively appreciated in the prior exam. There are few benign type calcifications. There is no other dominant mass, spiculated lesion or suspicious calcification identified. Skin, nipples and axillae are unremarkable. Impression: Category 0, further imaging needed. Circumscribed ovoid density in the retroareolar region of the right breast best seen on tomosynthesis views. Further evaluation with spot compression views and if warranted ultrasound recommended to exclude the possibility of discrete underlying mass. ACR BI-RADS Category 0: Incomplete. (Needs additional imaging evaluation). Result letter will be mailed to the patient. Note: At least 10% of breast cancer is not imaged by mammography. Dictated by: Dictated on workstation # [id number]
== END ==
LOC: RAD 07:33
PROVIDERS: ATTEND Nurse Practitioner Family
DX: Z12.31 Encounter for screening mammogram for malignant neoplasm of breast (principal)
CPT/HCPCS: 77067

== ENCOUNTER 2018-05-20 05:31 | Outpatient (CLI) | payer OTHER ==
[~2018-05-20] VITALS: Ht 154.9 cm; Wt 62.6 kg
[~2018-05-20 05:31] MED LIST changes: -ALPR0.5T7 PO; -ESTR1TAB27 PO; -FEXO1TAB43 PO; -MULT-153 PO; -OMEP20CA12 PO; -OXYC-197 PO
[2018-05-20] MEDS ORDERED: OMEP20CA12 PO (09:52)
[2018-05-20] MEDS ORDERED: ESTR1TAB27 PO (09:52)
[2018-05-20] MEDS ORDERED: FEXO1TAB43 PO (09:52)
[2018-05-20] MEDS ORDERED: ALPR0.5T7 PO (09:52)
[2018-05-20] MEDS ORDERED: MULT-153 PO (09:52)
[2018-05-21] MEDS ORDERED: OXYC-197 PO (16:19)
== END 2018-05-20 10:00 | disposition home or self-care (01) ==
LOC: PREOP 05:31
PROVIDERS: ATTEND Obstetrics & Gynecology
DX: Z29.8 Encounter for other specified prophylactic measures (principal)

== ENCOUNTER → 2019-02-16 | Outpatient (CLI) | payer OTHER ==
[~2019-02-16] MED LIST changes: +ALPR0.5T7 PO; +ESTR1TAB27 PO; +FEXO1TAB43 PO; +HOLD METFORMIN - RECEIVED CONTRAST 20 ML VIAL IV SCH; +IOHEXOL 350 MG/ML 100 ML (OMNIPAQUE 350) VIAL IV ONE; +MULT-153 PO; +OMEP20CA12 PO; +OXYC1TAB87 PO
[2019-02-16 13:30] LABS: BUN/CREATININE RATIO 13; CREATININE SERUM 0.82 MG/DL (0.60-1.30); GFR ESTIMATED > 60
--- NOTE | 2019-02-16 14:19 | Diagnostic Imaging Report ---
PROCEDURE: CT abdomen and pelvis with contrast. TECHNIQUE: Multiple contiguous axial images were obtained through the abdomen and pelvis after administration of intravenous contrast. Auto Exposure Controls were utilized during the CT exam to meet ALARA standards for radiation dose reduction. INDICATION: Mid to low abdominal pain radiating to the right upper quadrant. The patient also has had diarrhea for 5 weeks. COMPARISON: 02/04/2018. FINDINGS: The lung bases are clear. No discrete liver mass is identified. The gallbladder is surgically absent. No biliary ductal dilatation is seen. The pancreas and spleen are unremarkable. No adrenal mass is identified. The kidneys are unremarkable. The aorta is nonaneurysmal. The small and large bowel loops are of normal caliber. There is no evidence of obstruction. There is no ascites or fluid collection. The bladder is unremarkable. No abdominal or pelvic lymphadenopathy is seen. No inflammatory process is detected. IMPRESSION: Unremarkable CT of the abdomen and pelvis. No acute abnormality is detected. Dictated by: Dictated on workstation # [id number]
== END ==
LOC: RAD 13:02
PROVIDERS: ATTEND Obstetrics & Gynecology
DX: R10.31 Right lower quadrant pain (principal); R19.7 Diarrhea, unspecified; Z90.49 Acquired absence of other specified parts of digestive tract
CPT/HCPCS: 36415; 74177; 82565; 84520

== ENCOUNTER 2019-02-28 06:13 | Outpatient (CLI) | payer OTHER ==
[~2019-02-28] VITALS: Ht 154.9 cm; Wt 62.6 kg
[~2019-02-28 06:13] MED LIST changes: -HOLD METFORMIN - RECEIVED CONTRAST 20 ML VIAL IV SCH; -IOHEXOL 350 MG/ML 100 ML (OMNIPAQUE 350) VIAL IV ONE
[2019-02-28] MEDS ORDERED: VIT1TABL82 PO (10:13)
[2019-02-28] MEDS ORDERED: MAGN250T13 PO (10:13)
== END 2019-02-28 10:26 | disposition home or self-care (01) ==
LOC: PREOP 06:13
PROVIDERS: ATTEND Obstetrics & Gynecology
DX: Z01.818 Encounter for other preprocedural examination (principal)

== ENCOUNTER 2019-03-04 12:21 | Day surgery (SDC) | payer OTHER ==
[~2019-03-04] VITALS: Ht 154.9 cm; Wt 62.6 kg
[~2019-03-04 12:21] MED LIST changes: +MAGN250T13 PO; +VIT1TABL82 PO
--- OUTSIDE RECORDS SUMMARY | 2019-03-04 12:25 | XMS REPORT ---
Author Author AMINATA ROUSSEAU [facility] Address [address] [place] [address] Care Team Providers Care Marker Assembler Name Role Phone AMINATA ROUSSEAU Unavailable PROBLEMS Type Condition ICD9-CM Code TCI19-DT Code Onset Dates Condition Status SNOMED Code Problem Postmenopausal HRT (hormone replacement therapy) Z79.890 Active 42443022 Problem Anxiety disorder, unspecified type F41.9 Active 645917766 Problem Primary insomnia F51.01 Active 0762264 Problem History of bariatric surgery Z98.84 Active 975975853 Problem Acute seasonal allergic rhinitis due to other allergen J30.89 Active 46704863 Problem Chronic GERD K21.9 Active 952455660 Problem Wellness examination Z00.00 Active 006459887 Problem Other chronic pain G89.29 Active 89644468 Problem Dorsalgia, unspecified M54.9 Active 110027338 ALLERGIES No Information ENCOUNTERS Encounter Location Date Diagnosis [place] [address] [address] Feb, [place] [address] [place] [id number] [place] [address] Jan, Other chronic pain G89.29 ; History of bariatric surgery Z98.84 ; Stomatitis K12.1 and Anxiety disorder, unspecified type F41.9 [facility] [address] [place] [id number] [place] [address] Jan, Primary insomnia F51.01 [place] [address] [address] 14 Dec, 2017 Primary insomnia F51.01 [place] [address] [place] [id number] [place] [address] Nov, Anxiety disorder, unspecified type F41.9 [place] [address] [place] [id number] [place] [address] Aug, Primary insomnia F51.01 ; Other chronic pain G89.29 ; Dorsalgia, unspecified M54.9 and Chronic GERD K21.9 [facility] [address] [place] [id number] [place] [address] 14566- 0985 Aug, Anxiety disorder, unspecified type F41.9 [facility] [address] [place] [address] [id number] [place] [address]- [address] Aug, Anxiety disorder, unspecified type F41.9 [facility] [address] [place] [id number] [place] [address] Aug, Acute seasonal allergic rhinitis due to other allergen J30.89 [place] [address] [place] [id number] [place] [address]- [address] Jun, Anxiety disorder, unspecified type F41.9 [facility] [address] [place] [id number] [place] [address] May, Anxiety disorder, unspecified type F41.9 [place] [address] [place] [id number] [place] [address] Apr, [facility] [address] [place] [id number] [place] [address] Apr, Anxiety disorder, unspecified type F41.9 and Primary insomnia F51.01 [place] [address] [place] [id number] [place] [address] 7[address]88- 5849 Apr, Primary insomnia F51.01 and Anxiety disorder, unspecified type F41.9 [place] [address] [place] [id number] [place] [address] March, Breast cancer screening Z12.39 [place] [address] [place] [id number] [place] [address] March, Anxiety disorder, unspecified type F41.9 and Primary insomnia F51.01 [place] [address] [place] [address] [address] Feb, Anxiety disorder, unspecified type F41.9 and Primary insomnia F51.01 [facility] [address] [place] [id number] [address] Jan, Anxiety disorder, unspecified type F41.9 ; Primary insomnia F51.01 and Postmenopausal HRT (hormone replacement therapy) Z79.890 [facility] [address] [place] [id number] [place] [address] 2546 Nov, Postmenopausal HRT (hormone replacement therapy) Z79.890 ; Primary insomnia F51.01 ; Anxiety disorder, unspecified type F41.9 and Wellness examination Z00.00 [facility] [address] [address] Nov, [facility] [address] [place] [id number] [address] Nov, [facility] [address] [place] [id number] [place] [address] 2540 Nov, Postmenopausal HRT (hormone replacement therapy) Z79.890 [facility] [id number] [address] Oct, [facility] [id number] [address] Aug, [facility] [id number] [address] Aug, [facility] [id number] [address] Jul, [facility] [address] [place] [id number] [address] May, [facility] [address] [address] May, Environmental allergies Z91.09 [facility] [address] [address] May, [facility] [address] [place] [address]46- [address] Apr, Postmenopausal HRT (hormone replacement therapy) Z79.890 ; Anxiety disorder, unspecified type F41.9 and Primary insomnia F51.01 [facility] [address] [place] [address] Apr, Acute non-recurrent maxillary sinusitis J01.00 [facility] [address] [place] [id number] [place] [address]- 1413 Apr, Insomnia, unspecified G47.00 and Anxiety disorder, unspecified F41.9 [facility] [address] [place] [id number] [place] [address]- 28[address] March, Postmenopausal HRT (hormone replacement therapy) Z79.890 [facility] [address] [place] [id number] [place] [address]- [address] Feb, [facility] [address] [id number] [place] [address] 94957- 67[address] Feb, [facility] [address] [place] [id number] [place] [address] 12[address]- 6076 Jan, Anxiety 300.00 and Motion sickness T75.3XXA [facility] [address] [place] [id number] [place] [address]- 98[address] Jan, [facility] [address] [place] [id number] [place] [address] 34566- 3361 Dec, [facility] [address] [place] [id number] [place] [address] 13696- 8[address] Oct, [facility] [address] [address] Oct, Thoracic outlet syndrome G54.0 [facility] [address] [place] [id number] [place] [address] 45278- 9012 Aug, [facility] [address] [place] [id number] [place] [address]37- 2226 Jul, Insomnia 780.52 and Anxiety 300.00 [facility] [address] [place] [id number] [address] Jun, [facility] [address] [place] [id number] [address] Jun, [facility] [address] [place] [id number] [address] Jun, [facility] [address] [place] [address] [id number] [address] Apr, Nausea & vomiting 787.01 ; Anxiety 300.00 and Insomnia 780.52 IMMUNIZATIONS No Known Immunizations SOCIAL HISTORY Never Assessed REASON FOR VISIT Lab Results PLAN OF CARE VITAL SIGNS MEDICATIONS Unknown Medications RESULTS No Results PROCEDURES No Known procedures INSTRUCTIONS MEDICATIONS ADMINISTERED No Known Medications MEDICAL (GENERAL) HISTORY Type Description Date Medical History insomnia Medical History anxiety Medical History chronic back pain Medical History ovarion cyst Surgical History partial hysterectomy 1996 Surgical History Right knee scope 2001 Surgical History Cholecystectomy 2002 Surgical History Bilaterial plantar fascia release 2012 Surgical History gastric sleeve Hospitalization History for surgery only
--- OUTSIDE RECORDS SUMMARY | 2019-03-04 12:25 | XMS REPORT ---
Author Author AMINATA ROUSSEAU Organization [facility] Address [address] [place] [address] Care Team Providers Care Research Associate Quality Control Qc Name Role Phone AMINATA ROUSSEAU Unavailable PROBLEMS Type Condition ICD9-CM Code KYS21-ST Code Onset Dates Condition Status SNOMED Code Problem Postmenopausal HRT (hormone replacement therapy) Z79.890 Active 15638664 Problem Anxiety disorder, unspecified type F41.9 Active 439071906 Problem Primary insomnia F51.01 Active 6317838 Problem History of bariatric surgery Z98.84 Active 038028296 Problem Acute seasonal allergic rhinitis due to other allergen J30.89 Active 94004511 Problem Chronic GERD K21.9 Active 278044556 Problem Wellness examination Z00.00 Active 224113158 Problem Other chronic pain G89.29 Active 16153494 Problem Dorsalgia, unspecified M54.9 Active 209780058 ALLERGIES Substance Reaction Event Type Date Status Morphine Sulfate rash Drug Allergy Jan, Active ENCOUNTERS Encounter Location Date Diagnosis [place] [id number] [place] [address] 28438- 0779 Feb, [facility] [address] [address] Jan, Other chronic pain G89.29 ; History of bariatric surgery Z98.84 ; Stomatitis K12.1 and Anxiety disorder, unspecified type F41.9 [facility] [id number] [address] Jan, Primary insomnia F51.01 [facility] [address] [place] [address] 89363- 0684 14 Dec, 2017 Primary insomnia F51.01 [facility] [address] [place] [address] 12502- 6796 Nov, Anxiety disorder, unspecified type F41.9 [facility] [address] [place] [address] 77413- 2881 Aug, Primary insomnia F51.01 ; Other chronic pain G89.29 ; Dorsalgia, unspecified M54.9 and Chronic GERD K21.9 [facility] [id number] [place] [address] 99129- 7435 Aug, Anxiety disorder, unspecified type F41.9 [facility] [id number] [place] [address] 29838- 2699 Aug, Anxiety disorder, unspecified type F41.9 [facility] [id number] [place] [address] 31768 -2784 Aug, Acute seasonal allergic rhinitis due to other allergen J30.89 [facility] [id number] [place] [address] 01250- 2796 Jun, Anxiety disorder, unspecified type F41.9 [facility] [id number] [place] [address] 34204- 8193 May, Anxiety disorder, unspecified type F41.9 [place] [id number] [place] [address] 62006- 6395 Apr, [place] [id number] [place] [address] 40116- 2704 Apr, Anxiety disorder, unspecified type F41.9 and Primary insomnia F51.01 [facility] [id number] [place] [address] 81628- 7294 Apr, Primary insomnia F51.01 and Anxiety disorder, unspecified type F41.9 [place] [id number] [place] [address] 92976- 3458 March, Breast cancer screening Z12.39 [facility] [id number] [place] [address] 73946- 1012 March, Anxiety disorder, unspecified type F41.9 and Primary insomnia F51.01 [facility] [address] [address] Feb, Anxiety disorder, unspecified type F41.9 and Primary insomnia F51.01 [facility] [address] [address] Jan, Anxiety disorder, unspecified type F41.9 ; Primary insomnia F51.01 and Postmenopausal HRT (hormone replacement therapy) Z79.890 [facility] [address] [address] Nov, Postmenopausal HRT (hormone replacement therapy) Z79.890 ; Primary insomnia F51.01 ; Anxiety disorder, unspecified type F41.9 and Wellness examination Z00.00 [facility] [id number] [address] Nov, [facility] [id number] [place] [address] 80942- 6749 Nov, [facility] [id number] [place] [address] 45425- 8624 Nov, Postmenopausal HRT (hormone replacement therapy) Z79.890 [facility] [address] [address] Oct, [facility] [address] [address] 480[address] Aug, [facility] [id number] [address] 2[address] Aug, [facility] [address] [address] 7[address] Jul, [facility] [address] [address] 39[address] May, [facility] [address] [address] 0867 May, Environmental allergies Z91.09 [facility] [id number] [place] [address] 10705- 1222 May, [facility] [id number] [place] [address] 32469- 8100 Apr, Postmenopausal HRT (hormone replacement therapy) Z79.890 ; Anxiety disorder, unspecified type F41.9 and Primary insomnia F51.01 [facility] IN [facility] [address] [place] [address] 62474 -2178 Apr, Acute non-recurrent maxillary sinusitis J01.00 [facility] [id number] [place] [address] 93973- 9381 Apr, Insomnia, unspecified G47.00 and Anxiety disorder, unspecified F41.9 [facility] [id number] [place] [address] 50238- 0817 March, Postmenopausal HRT (hormone replacement therapy) Z79.890 [facility] [id number] [place] [address] 79564- 2789 Feb, [facility] [id number] [place] [address] 57385- 1122 Feb, [facility] [id number] [place] [address] 56599- 9634 Jan, Anxiety 300.00 and Motion sickness T75.3XXA [facility] [id number] [place] [address] 23344- 0781 Jan, [facility] [id number] [place] [address] 02364- 9146 Dec, [facility] [id number] [place] [address] 33921- 1314 Oct, [facility] [address] 6[address]- 4895 Oct, Thoracic outlet syndrome G54.0 [facility] [id number] [place] [address] 13905- 4640 Aug, [place] [id number] [address] Jul, Insomnia 780.52 and Anxiety 300.00 [place] [address] [address]- [address] Jun, [facility] [address] [address]- 30[address] Jun, [facility] [address] [place] [address] 40296- 1692 Jun, [place] [address] [place] [address] 59794- 9014 Apr, Nausea & vomiting 787.01 ; Anxiety 300.00 and Insomnia 780.52 IMMUNIZATIONS No Known Immunizations SOCIAL HISTORY Never Assessed REASON FOR VISIT Transition of Care, PT is need of med refills and requesting labs-Nuha DREW PLAN OF CARE Activity Details Follow Up 3 Months Reason: VITAL SIGNS Height 61 in 2018-02-23 Weight 149.7 lbs 2018-02-23 Temperature 98.4 degrees Fahrenheit 2018-02-23 Heart Rate 62 bpm 2018-02-23 Respiratory Rate 18 2018-02-23 BMI 28.28 kg/m2 2018-02-23 Blood pressure systolic 114 mmHg 2018-02-23 Blood pressure diastolic 66 mmHg 2018-02-23 MEDICATIONS Medication Instructions Dosage Frequency Start Date End Date Duration Status Xanax 0.5 MG Orally Three times a day 1 tablet 8h 30 days Active Soma 350 MG Orally 2 times a day 1 tablet as needed 12h 10 Oct, 2015 Not-Taking Pantoprazole Sodium 40 mg Orally Once a day 1 tablet 24h 31 Aug, 2017 30 day(s) Active Estradiol 20 Orally Once a day 1 tablet 24h Active Saloni Allergy Active Multi Complete Active RESULTS No Results PROCEDURES Procedure Date Ordered Result Body Site DRUG SCREEN AMPHETAMINES /2 February 23, 2018 DRUG TEST PRSMV CHEM ANLYZR February 23, 2018 VENIPUNCT, ROUTINE* February 23, 2018 COMPLETE CBC W/AUTO DIFF WBC February 23, 2018 COMPREHEN METABOLIC PANEL February 23, 2018 VITAMIN B-12 February 23, 2018 ASSAY OF MAGNESIUM February 23, 2018 INSTRUCTIONS MEDICATIONS ADMINISTERED No Known Medications MEDICAL [...]
--- OUTSIDE RECORDS SUMMARY | 2019-03-04 12:25 | XMS REPORT ---
Author Author BAILEE SHAUN Organization [facility] Address [address] [place] [address] Care Team Providers Care Elevator Attendant Name Role Phone SHAUN MOROCHO Unavailable PROBLEMS Type Condition ICD9-CM Code SGP68-WN Code Onset Dates Condition Status SNOMED Code Problem Postmenopausal HRT (hormone replacement therapy) Z79.890 Active 80592151 Problem Anxiety disorder, unspecified type F41.9 Active 535262125 Problem Primary insomnia F51.01 Active 9845648 Problem History of bariatric surgery Z98.84 Active 068332978 Problem Acute seasonal allergic rhinitis due to other allergen J30.89 Active 08925604 Problem Chronic GERD K21.9 Active 377024040 Problem Wellness examination Z00.00 Active 206190423 Problem Other chronic pain G89.29 Active 75969090 Problem Dorsalgia, unspecified M54.9 Active 827623242 ALLERGIES No Information ENCOUNTERS Encounter Location Date Diagnosis [facility] [id number] [place] [address] 86183- 0147 03 Feb, 2018 [facility] [id number] [place] [address] 62622- 9944 27 Jan, 2018 Other chronic pain G89.29 ; History of bariatric surgery Z98.84 ; Stomatitis K12.1 and Anxiety disorder, unspecified type F41.9 [facility] [address] [address]- 0[address] 12 Jan, 2018 Primary insomnia F51.01 [facility] [id number] [place] [address] 34912- 4235 14 Dec, 2017 Primary insomnia F51.01 [facility] [id number] [place] [address] 64902- 5796 Nov, Anxiety disorder, unspecified type F41.9 [facility] [id number] [place] [address] 56908- 0651 Aug, Primary insomnia F51.01 ; Other chronic pain G89.29 ; Dorsalgia, unspecified M54.9 and Chronic GERD K21.9 [facility] [id number] [place] [address] 04077- 2302 Aug, Anxiety disorder, unspecified type F41.9 [facility] [id number] [place] [address] 65412- 1712 Aug, Anxiety disorder, unspecified type F41.9 [facility] [address] [address] Aug, Acute seasonal allergic rhinitis due to other allergen J30.89 [place] [id number] [place] [address] 11919- 3854 Jun, Anxiety disorder, unspecified type F41.9 [facility] [id number] [place] [address] 53961- 3842 May, Anxiety disorder, unspecified type F41.9 [place] [id number] [place] [address] 96099- 9519 Apr, [place] [id number] [place] [address] 50315- 2938 Apr, Anxiety disorder, unspecified type F41.9 and Primary insomnia F51.01 [facility] [id number] [place] [address] 64347- 1876 Apr, Primary insomnia F51.01 and Anxiety disorder, unspecified type F41.9 [place] [id number] [place] [address] 04167- 7679 March, Breast cancer screening Z12.39 [place] [id number] [place] [address] 06697- 3997 March, Anxiety disorder, unspecified type F41.9 and Primary insomnia F51.01 [place] [address] [address]- 1396 Feb, Anxiety disorder, unspecified type F41.9 and Primary insomnia F51.01 [facility] [id number] [place] [address] 16630- 0354 Jan, Anxiety disorder, unspecified type F41.9 ; Primary insomnia F51.01 and Postmenopausal HRT (hormone replacement therapy) Z79.890 [facility] [id number] [place] [address] 93807- 7619 Nov, Postmenopausal HRT (hormone replacement therapy) Z79.890 ; Primary insomnia F51.01 ; Anxiety disorder, unspecified type F41.9 and Wellness examination Z00.00 [facility] [id number] [place] [address] 23453- 1137 Nov, [facility] [id number] [place] [address] 52472- 5675 Nov, [facility] [id number] [place] [address] 03634- 8047 Nov, Postmenopausal HRT (hormone replacement therapy) Z79.890 [facility] [id number] [place] [address] 73960- 0395 Oct, [facility] [address], [place] [address]- 1155 Aug, [facility] [id number] [place] [address] 96235- 8056 Aug, [facility] [id number], [place] [address]- 7424 Jul, [facility] [id number] [place] [address] 73013- 8896 May, [facility] [address], [place] [address]- 4503 May, Environmental allergies Z91.09 [facility] [id number] [place] [address] 26118- 6340 May, [facility] [address] [place] [address] 91790- 4539 Apr, Postmenopausal HRT (hormone replacement therapy) Z79.890 ; Anxiety disorder, unspecified type F41.9 and Primary insomnia F51.01 [facility] IN [facility] [address] [address] Apr, Acute non-recurrent maxillary sinusitis J01.00 [facility] [id number] [place] [address] 90864- 1785 Apr, Insomnia, unspecified G47.00 and Anxiety disorder, unspecified F41.9 [facility] [id number] [place] [address] 89804- 5648 March, Postmenopausal HRT (hormone replacement therapy) Z79.890 [facility] [id number] [place] [address] 67553- 1462 Feb, [facility] [id number] [place] [address] 35980- 2263 Feb, [facility] [id number] [place] [address] 90245- 7921 Jan, Anxiety 300.00 and Motion sickness T75.3XXA [facility] [id number] [place] [address] 61498- 7156 Jan, [facility] [id number] [place] [address] 19053- 8508 Dec, [facility] [id number] [place] [address] 34065- 4369 Oct, [facility] [id number] [place] [address] 61579- 2529 Oct, Thoracic outlet syndrome G54.0 [facility] [id number] [place] [address] 35217- 0632 Aug, [facility] [address], [place] [address]- 2546 Jul, Insomnia 780.52 and Anxiety 300.00 [facility] [address], [place] [address]- 2546 Jun, [facility] [id number] [address]- 2546 Jun, [facility] [address] [place] [address] 66812- 2546 Jun, [facility] [id number], [place] [address]- 2316 Apr, Nausea & vomiting 787.01 ; Anxiety 300.00 and Insomnia 780.52 IMMUNIZATIONS No Known Immunizations SOCIAL HISTORY Never Assessed REASON FOR VISIT Refill request PLAN OF CARE VITAL SIGNS MEDICATIONS Medication Instructions Dosage Frequency Start Date End Date Duration Status Alprazolam 0.5 MG Orally Twice a day 1 tablet as needed 12h Aug, 14 days Active RESULTS No Results PROCEDURES No [...]
--- OUTSIDE RECORDS SUMMARY | 2019-03-04 12:26 | XMS REPORT ---
Author Author AMINATA ROUSSEAU [facility] Address [address] [place] [address] Care Team Providers Care Corporate Learning Consultant Name Role Phone AMINATA ROUSSEAU Unavailable PROBLEMS Type Condition ICD9-CM Code [id number] Code Onset Dates Condition Status SNOMED Code Problem Postmenopausal HRT (hormone replacement therapy) Z79.890 Active 76778631 Problem Anxiety disorder, unspecified type F41.9 Active 220615241 Problem Primary insomnia F51.01 Active 1978275 Problem History of bariatric surgery Z98.84 Active 052393385 Problem Acute seasonal allergic rhinitis due to other allergen J30.89 Active 71329151 Problem Chronic GERD K21.9 Active 983865633 Problem Wellness examination Z00.00 Active 645399921 Problem Other chronic pain G89.29 Active 96296869 Problem Dorsalgia, unspecified M54.9 Active 090130486 ALLERGIES No Information ENCOUNTERS Encounter Location Date Diagnosis [place] [address] [address] Feb, [place] [address] [place] [id number] [place] [address] 60002- 5920 Jan, Other chronic pain G89.29 ; History of bariatric surgery Z98.84 ; Stomatitis K12.1 and Anxiety disorder, unspecified type F41.9 [facility] [address] [place] [id number] [place] [address] 19458- 3903 Jan, Primary insomnia F51.01 [place] [address] [address]- [address]87 14 Dec, 2017 Primary insomnia F51.01 [place] [address] [place] [id number] [place] [address] 61898- 2503 Nov, Anxiety disorder, unspecified type F41.9 [place] [address] [place] [id number] [place] [address] 04396- 7378 Aug, Primary insomnia F51.01 ; Other chronic pain G89.29 ; Dorsalgia, unspecified M54.9 and Chronic GERD K21.9 [facility] [address] [place] [id number] [place] [address] 68134- 3266 Aug, Anxiety disorder, unspecified type F41.9 [facility] [address] [place] [address] [id number] [place] [address] 15360- 6704 Aug, Anxiety disorder, unspecified type F41.9 [facility] [address] [id number] [place] [address] 36988 -8043 Aug, Acute seasonal allergic rhinitis due to other allergen J30.89 [place] [address] [place] [id number] [place] [address] 64614- 2504 Jun, Anxiety disorder, unspecified type F41.9 [facility] [address] [place] [id number] [place] [address] 18630- 3665 May, Anxiety disorder, unspecified type F41.9 [place] [address] [place] [id number] [place] [address] 03545- 8197 Apr, [facility] [address] [place] [id number] [place] [address] 65460- 9913 Apr, Anxiety disorder, unspecified type F41.9 and Primary insomnia F51.01 [place] [address] [place] [id number] [place] [address] 41970- 1285 Apr, Primary insomnia F51.01 and Anxiety disorder, unspecified type F41.9 [place] [address] [place] [id number] [place] [address] 81074- 9469 March, Breast cancer screening Z12.39 [place] [address] [place] [id number] [place] [address] 50779- 8619 March, Anxiety disorder, unspecified type F41.9 and Primary insomnia F51.01 [place] [address] [place] [address] [address] 2544 Feb, Anxiety disorder, unspecified type F41.9 and Primary insomnia F51.01 [facility] [address] [id number] [address] 2546 Jan, Anxiety disorder, unspecified type F41.9 ; Primary insomnia F51.01 and Postmenopausal HRT (hormone replacement therapy) Z79.890 [facility] [address] [place] [address] [id number] [place] [address] 23562 2546 Nov, Postmenopausal HRT (hormone replacement therapy) Z79.890 ; Primary insomnia F51.01 ; Anxiety disorder, unspecified type F41.9 and Wellness examination Z00.00 [facility] [address] [address] 2546 Nov, [facility] [address] [place] [id number] [address] 1356 Nov, [facility] [address] [place] [id number] [place] [address] 58568 2549 Nov, Postmenopausal HRT (hormone replacement therapy) Z79.890 [facility] [address] [address] 2546 Oct, [facility] [address] [address] 2546 Aug, [facility] [address] [address] 2546 Aug, [facility] [address] [address]- 2546 Jul, [facility] [address] [place] [id number] [address] 2546 May, [facility] [address] [address]- 2546 May, Environmental allergies Z91.09 [facility] [address] [address]- 9661 May, [facility] [id number] [place] [address] 49024- 9703 Apr, Postmenopausal HRT (hormone replacement therapy) Z79.890 ; Anxiety disorder, unspecified type F41.9 and Primary insomnia F51.01 [facility] [address] [place] [address] 92507 -3368 Apr, Acute non-recurrent maxillary sinusitis J01.00 [facility] [address] [place] [id number] [place] [address] 23514- 5025 Apr, Insomnia, unspecified G47.00 and Anxiety disorder, unspecified F41.9 [facility] [address] [place] [id number] [place] [address] 94146- 9678 March, Postmenopausal HRT (hormone replacement therapy) Z79.890 [facility] [address] [place] [id number] [place] [address] 02884- 9589 Feb, [facility] [address] [place] [id number] [place] [address] 22185- 3326 Feb, [facility] [address] [place] [id number] [place] [address] 13137- 5130 Jan, Anxiety 300.00 and Motion sickness T75.3XXA [facility] [address] [place] [id number] [place] [address] 76519- 0146 Jan, [facility] [address] [place] [id number] [place] [address] 14683- 0345 Dec, [facility] [address] [place] [id number] [place] [address] 49225- 9247 Oct, [facility] [address] 91798- 7841 Oct, Thoracic outlet syndrome G54.0 [facility] [address] [place] [id number] [place] [address] 28854- 0918 Aug, [facility] [address] [place] [id number] [place] [address] 20230- 2546 Jul, Insomnia 780.52 and Anxiety 300.00 [facility] [address] [id number] [address]- 38[address] Jun, [facility] [address] [place] [id number] [address]- 2546 Jun, [facility] [address] [place] [id number] [address]- 6566 Jun, [facility] [address] [place] [id number] [address]- 9376 Apr, Nausea & vomiting 787.01 ; Anxiety 300.00 and Insomnia 780.52 IMMUNIZATIONS No Known Immunizations SOCIAL HISTORY Never Assessed REASON FOR VISIT Alprazolam 09/18 PLAN OF CARE VITAL SIGNS MEDICATIONS Medication Instructions Dosage Frequency Start Date End Date Duration Status Xanax 0.5 MG Orally Three times a day 1 tablet 8h 28 days Active RESULTS No Results PROCEDURES [...]
--- OUTSIDE RECORDS SUMMARY | 2019-03-04 12:26 | XMS REPORT ---
Author Author BAILEE SHAUN Organization [facility] Address [address] [place] [address] Care Team Providers Care Workers Compensation Claims Specialist Name Role Phone SHAUN MOROCHO Unavailable PROBLEMS Type Condition ICD9-CM Code XJQ38-BP Code Onset Dates Condition Status SNOMED Code Problem Postmenopausal HRT (hormone replacement therapy) Z79.890 Active 71394565 Problem Anxiety disorder, unspecified type F41.9 Active 489811237 Problem Primary insomnia F51.01 Active 0707111 Problem History of bariatric surgery Z98.84 Active 234123099 Problem Acute seasonal allergic rhinitis due to other allergen J30.89 Active 58334454 Problem Chronic GERD K21.9 Active 929931807 Problem Wellness examination Z00.00 Active 098888302 Problem Other chronic pain G89.29 Active 80492911 Problem Dorsalgia, unspecified M54.9 Active 146405837 ALLERGIES No Information ENCOUNTERS Encounter Location Date Diagnosis [facility] [address] [place] [id number] [place] [address] 67659- 5326 03 Feb, 2018 [facility] [address] [place] [id number] [place] [address] 07176- 5471 27 Jan, 2018 Other chronic pain G89.29 ; History of bariatric surgery Z98.84 ; Stomatitis K12.1 and Anxiety disorder, unspecified type F41.9 [facility] [address] [address]- 76[address] 12 Jan, 2018 Primary insomnia F51.01 [facility] [address] [place] [id number] [place] [address] 10306- 0926 14 Dec, 2017 Primary insomnia F51.01 [facility] [address] [place] [id number] [place] [address] 87469- 1106 Nov, Anxiety disorder, unspecified type F41.9 [facility] [address] [place] [id number] [place] [address] 40250- 0001 Aug, Primary insomnia F51.01 ; Other chronic pain G89.29 ; Dorsalgia, unspecified M54.9 and Chronic GERD K21.9 [facility] [address] [place] [id number] [place] [address] 67516- 8345 Aug, Anxiety disorder, unspecified type F41.9 [facility] [address] [place] [id number] [place] [address] 34935- 2810 Aug, Anxiety disorder, unspecified type F41.9 [facility] [address] [address] -1465 Aug, Acute seasonal allergic rhinitis due to other allergen J30.89 [place] [address] [place] [id number] [place] [address] 92515- 6641 Jun, Anxiety disorder, unspecified type F41.9 [facility] [address] [place] [id number] [place] [address] 45319- 7906 May, Anxiety disorder, unspecified type F41.9 [place] [address] [place] [id number] [place] [address] 22462- 8476 Apr, [place] [address] [place] [id number] [place] [address] 94516- 4816 Apr, Anxiety disorder, unspecified type F41.9 and Primary insomnia F51.01 [facility] [address] [place] [id number] [place] [address] 15732- 9785 Apr, Primary insomnia F51.01 and Anxiety disorder, unspecified type F41.9 [place] [address] [place] [id number] [place] [address] 44094- 3447 March, Breast cancer screening Z12.39 [place] [address] [place] [id number] [place] [address] 03806- 9370 March, Anxiety disorder, unspecified type F41.9 and Primary insomnia F51.01 [place] [address] [address]- 7936 Feb, Anxiety disorder, unspecified type F41.9 and Primary insomnia F51.01 [facility] [address] [place] [id number] [place] [address] 05440- 5173 Jan, Anxiety disorder, unspecified type F41.9 ; Primary insomnia F51.01 and Postmenopausal HRT (hormone replacement therapy) Z79.890 [facility] [address] [place] [id number] [place] [address] 00178- 6153 Nov, Postmenopausal HRT (hormone replacement therapy) Z79.890 ; Primary insomnia F51.01 ; Anxiety disorder, unspecified type F41.9 and Wellness examination Z00.00 [facility] [address] [place] [id number] [place] [address] 94654- 3330 Nov, [facility] [address] [place] [id number] [place] [address] 59179- 3187 Nov, [facility] [address] [place] [id number] [place] [address] 84453- 7156 Nov, Postmenopausal HRT (hormone replacement therapy) Z79.890 [facility] [address] [place] [id number] [place] [address] 28636- 4391 Oct, [facility] [address] [address]- 8284 Aug, [facility] [address] [place] [id number] [place] [address] 32300- 0574 Aug, [facility] [address] [place] [id number] [address]- 4116 Jul, [facility] [address] [place] [id number] [place] [address] 23640- 0566 May, [facility] [address] [address]- 3693 May, Environmental allergies Z91.09 [facility] [address] [place] [id number] [place] [address] 31696- 8121 May, [facility] [address] [place] [address] 35397- 7440 Apr, Postmenopausal HRT (hormone replacement therapy) Z79.890 ; Anxiety disorder, unspecified type F41.9 and Primary insomnia F51.01 [facility] [address] [address] -2551 Apr, Acute non-recurrent maxillary sinusitis J01.00 [facility] [address] [place] [id number] [place] [address] 88443- 6721 Apr, Insomnia, unspecified G47.00 and Anxiety disorder, unspecified F41.9 [facility] [address] [place] [id number] [place] [address] 43936- 3195 March, Postmenopausal HRT (hormone replacement therapy) Z79.890 [facility] [address] [place] [id number] [place] [address] 64297- 5157 Feb, [facility] [address] [place] [id number] [place] [address] 59345- 7659 Feb, [facility] [address] [place] [id number] [place] [address] 82153- 6164 Jan, Anxiety 300.00 and Motion sickness T75.3XXA [facility] [address] [place] [id number] [place] [address] 65965- 9011 Jan, [facility] [address] [place] [id number] [place] [address] 94441- 5042 Dec, [facility] [address] [id number] [place] [address] 39257- 2320 Oct, [facility] [address] [place] [id number] [place] [address] 54126- 4958 Oct, Thoracic outlet syndrome G54.0 [facility] [address] [place] [id number] [place] [address] 66011- 8133 Aug, [facility] [address] [address]- 2546 Jul, Insomnia 780.52 and Anxiety 300.00 [facility] [address] [address]- 9406 Jun, [facility] [address] [id number] [address]- 2546 Jun, [facility] [address] [place] [address] 52942 2546 Jun, [facility] [address] [place] [id number] [address]- 0033 Apr, Nausea & vomiting 787.01 ; Anxiety 300.00 and Insomnia 780.52 IMMUNIZATIONS No Known Immunizations SOCIAL HISTORY Never Assessed REASON FOR VISIT Questions PLAN OF CARE VITAL SIGNS MEDICATIONS Medication Instructions Dosage Frequency Start Date End Date Duration Status Alprazolam 0.5 MG Orally Twice a day 1 tablet as needed 12h Aug, 30 days Active RESULTS No Results PROCEDURES No [...]
--- OUTSIDE RECORDS SUMMARY | 2019-03-04 12:29 | XMS REPORT | CCD ---
Author Author Sweta Velazquez Organization [facility] Address [address] [place] [address] Phone Care Team Providers Care In Service Educator Name Role Phone PP Unavailable CCM Unavailable Summary Purpose Interface Exchange Insurance Providers Payer name Policy type / Coverage type Covered libertarian ID Effective Begin Date Effective End Date [employer] health and Life Insurance Commercial Insurance [id number] Unknown Family history Mother Diagnosis Age At Onset Hypertension Unknown Heart Attack Unknown Hyperlipidemia Unknown Diabetes mellitus Type 2 Unknown Father Diagnosis Age At Onset Cancer Unknown Social History Social History Element Codes Description Effective Dates Marital status Unknown Rah 01/13/2019 Number of children Unknown 2 04/08/[address]: 590163033 Never smoker 04/08/2018 Alcohol history Unknown occasionally drinks alcohol 04/08/2018 Allergies, Adverse Reactions, Alerts Substance Reaction Codes Entered Date Inactivated Date Status MORPHINE SULFATE RxNorm: 7052 04/08/2018 No Inactive Date Active Past Medical History Illness Codes Condition Status Onset Date Resolved Date Acute recurrent maxillary sinusitis ICD-9: 461.0 ICD-10: J01.01 Active 01/13/2019 Unknown Cough ICD-9: 786.2 ICD-10: R05 Active 01/13/2019 Unknown Mild cognitive impairment, so stated ICD-9: 331.83 ICD-10: G31.84 Active 08/23/2018 Unknown Other allergic rhinitis ICD-9: 477.8 ICD-10: J30.89 Active 08/23/2018 Unknown Low back pain ICD-9: 724.2 ICD-10: M54.5 Active 04/30/2018 Unknown Pain in right hip ICD- 9: 719.45 ICD-10: M25.551 Active 04/30/2018 Unknown Right lower quadrant pain ICD-9: 789.03 ICD-10: R10.31 Active 04/08/2018 Unknown Problems Condition Codes Effective Dates Condition Status Acute recurrent maxillary sinusitis ICD-9: 461.0 ICD-10: J01.01 01/13/2019 Active Cough ICD-9: 786.2 ICD-10: R05 01/13/2019 Active Mild cognitive impairment, so stated ICD-9: 331.83 ICD-10: G31.84 08/23/2018 Active Other allergic rhinitis ICD-9: 477.8 ICD-10: J30.89 08/23/2018 Active Low back pain ICD-9: 724.2 ICD-10: M54.5 04/30/2018 Active Pain in right hip ICD- 9: 719.45 ICD-10: M25.551 04/30/2018 Active Right lower quadrant pain ICD-9: 789.03 ICD-10: R10.31 04/08/2018 Active Medications Medication Codes Instructions Start Date Stop Date Status Fill Instructions Tessalon Perles 100 mg capsule RxNorm: 811335 1 Capsule(s) PO TID as needed 01/17/2019 No Stop Date Active promethazine 6.25 mg-codeine 10 mg/5 mL syrup RxNorm: 449777 5-10 Milliliter(s) PO Q6 PRN 01/13/2019 No Stop Date Active Augmentin 875 mg-125 mg tablet RxNorm: 796458 1 Tablet(s) PO BID 01/13/2019 01/19/2019 Inactive Xanax 0.5 mg tablet RxNorm: 762576 TAKE 1 TABLET BY MOUTH THREE TIMES DAILY NEEDED 11/19/2018 12/18/2018 Inactive Generic For:*XANAX 0.5 MG TABLET 11/19/2018 12:45:33 PM pantoprazole 40 mg tablet,delayed release RxNorm: 959481 1 Tablet(s) PO daily 10/18/2018 01/15/2019 Inactive Xanax 0.5 mg tablet RxNorm: 071280 1 Tablet(s) PO TID as needed 10/18/2018 12/16/2018 Inactive Xanax 0.5 mg tablet RxNorm: 727503 1 Tablet(s) PO TID as needed 10/18/2018 11/19/2018 Inactive pantoprazole 40 mg tablet,delayed release RxNorm: 375488 1 Tablet(s) PO daily 10/18/2018 10/17/2018 Inactive Xyzal 5 mg tablet RxNorm: 061064 1 Tablet(s) PO daily 201701/18/2019 Inactive Xyzal 5 mg tablet RxNorm: 070983 1 Tablet(s) PO daily 201709/20/2018 Inactive Xanax 0.5 mg tablet RxNorm: 428723 1 Tablet(s) PO TID as needed 08/06/2018 10/04/2018 Inactive Xanax 0.5 mg tablet RxNorm: 204665 1 Tablet(s) PO TID as needed 06/01/2018 07/29/2018 Inactive Kenalog 40 mg/mL suspension for injection RxNorm: 1501664 1 Milliliter(s) Inj 04/30/2018 04/30/2018 Inactive naproxen 500 mg tablet RxNorm: 458540 1 Tablet(s) PO BID 201705/04/2018 Inactive ketorolac 60 mg/2 mL intramuscular solution RxNorm: 669363 2 Milliliter(s) IM 04/08/2018 04/08/2018 Inactive multivit and minerals-ferrous gluconate oral RxNorm: oral No Start Date Active estradiol 2 mg tablet RxNorm: 214889 1 Tablet(s) PO daily No Start Date Active pantoprazole 40 mg tablet,delayed release RxNorm: 383807 1 Tablet(s) PO daily No Start Date 10/17/2018 Inactive Saloni 180 mg tablet RxNorm: 415501 1 Tablet(s) PO daily No Start Date 01/12/2019 Inactive Tessalon Perles 100 mg capsule RxNorm: 508244 1 Capsule(s) PO TID as needed No Start Date 01/16/2019 Inactive Xanax 0.5 mg tablet RxNorm: 301656 1 Tablet(s) PO QHS No Start Date 05/31/2018 Inactive Medication Administered Medication Codes Instructions Start Date Status Kenalog 40 mg/mL suspension for injection RxNorm: 4533421 1Milliliter 04/30/2018 No longer Active ketorolac 60 mg/2 mL intramuscular solution RxNorm: 909728 2Milliliter 04/08/2018 No longer Active Immunizations No Immunization data Assessments Condition Codes Effective Dates Acute recurrent maxillary sinusitis ICD-10: J01.01 ICD-9: 461.0 01/13/2019 Cough ICD-10: R05 ICD-9: 786.2 01/13/2019 Other allergic rhinitis ICD-10: J30.89 ICD-9: 477.8 08/23/2018 Mild cognitive impairment, so stated ICD-10: G31.84 ICD-9: 331.83 08/23/2018 Low back pain ICD-10: M54.5 ICD-9: 724.2 04/30/2018 Pain in right hip ICD-10: M25.551 ICD-9: 719.45 04/30/2018 Right lower quadrant pain ICD-10: R10.31 ICD-9: 789.03 04/08/2018 Reason For Visit Reason For Visit Effective Dates Notes cough 01/13/2019 memory loss 08/23/2018 joint complaint 04/30/2018 right hip abdominal pain 04/08/2018 Results No Results data Review of Systems System Result Effective Dates Constitutional recent illness 01/13/2019 Constitutional No anorexia 01/13/2019 Constitutional No night sweats 2018 Constitutional chills 01/13/2019 Constitutional No diaphoresis 01/13/2019 Constitutional fatigue 01/13/2019 Constitutional fever 01/13/2019 Constitutional No insomnia 01/13/2019 Constitutional No malaise 01/13/2019 Constitutional No weight loss 01/13/2019 Constitutional No weight gain 01/13/2019 Eyes No eye discharge 01/13/2019 Eyes No eye erythema 01/13/2019 Ears/Nose/Throat/Neck headache 2018 Ears/Nose/Throat/Neck nasal allergies Ears/Nose/Throat/Neck nasal discharge Ears/Nose/Throat/Neck otalgia 01/13/2019 Ears/Nose/Throat/Neck sinus congestion Cardiovascular No chest pain/pressure Cardiovascular No dyspnea 01/13/2019 Cardiovascular No edema 01/13/2019 Respiratory cough 01/13/2019 Respiratory productive sputum 01/13/2019 Gastrointestinal No abdominal pain 2018 Gastrointestinal No constipation 2018 Gastrointestinal No diarrhea 01/13/2019 Gastrointestinal No vomiting 01/13/2019 Gastrointestinal No nausea 01/13/2019 Genitourinary/Nephrology No dysuria 01/13 Musculoskeletal No joint complaint 2018 Dermatologic No rash 01/13/2019 Neurologic No alteration of consciousness 01/13/2019 Constitutional No recent illness 2017 Constitutional No chills 08/23/2018 Constitutional No diaphoresis 08/23/2018 Constitutional No fever 08/23/2018 Eyes No eye erythema 08/23/2018 Ears/Nose/Throat/Neck nasal allergies Ears/Nose/Throat/Neck nasal discharge Ears/Nose/Throat/Neck No sinus congestion 08/23/2018 Ears/Nose/Throat/Neck postnasal drip Ears/Nose/Throat/Neck No sore throat Ears/Nose/Throat/Neck dizziness 2017 Cardiovascular No chest pain/pressure Cardiovascular No dyspnea 08/23/2018 Respiratory No dyspnea 08/23/2018 Respiratory No cough 08/23/2018 Respiratory No chest congestion 2017 Gastrointestinal No abdominal pain 2017 Musculoskeletal No joint complaint 2017 Dermatologic No rash 08/23/2018 Neurologic No alteration of consciousness 08/23/2018 Neurologic No mental status change 2017 Psychiatric No anxiety 08/23/2018 Psychiatric No depression 08/23/2018 Constitutional insomnia 08/23/2018 Constitutional No recent illness 2017 Constitutional No chills 04/30/2018 Constitutional No fever 04/30/2018 Eyes No eye erythema 04/30/2018 Ears/Nose/Throat/Neck No nasal discharge 04/30/2018 Cardiovascular No chest pain/pressure 11/2017 Cardiovascular No dyspnea 04/30/2018 Respiratory No cough 04/30/2018 Respiratory No dyspnea 04/30/2018 Musculoskeletal joint complaint 2017 Neurologic No alteration of consciousness 04/30/2018 Neurologic No mental status change 2017 Constitutional No recent illness 2017 Constitutional No chills 04/08/2018 Constitutional No diaphoresis 04/08/2018 Constitutional No fever 04/08/2018 Eyes No eye erythema 04/08/2018 Ears/Nose/Throat/Neck No nasal discharge 04/08/2018 Ears/Nose/Throat/Neck No nasal allergies 04/08/2018 Cardiovascular No chest pain/pressure 08/2018 Cardiovascular No dyspnea 04/08/2018 Respiratory No cough 04/08/2018 Respiratory No chest congestion 2017 Gastrointestinal abdominal pain 2017 Gastrointestinal No constipation 2017 Gastrointestinal No diarrhea 04/08/2018 Gastrointestinal No vomiting 04/08/2018 Gastrointestinal No nausea 04/08/2018 Gastrointestinal No melena 04/08/2018 Gastrointestinal No hematochezia 2017 Musculoskeletal No joint complaint 2017 Dermatologic No rash 04/08/2018 Neurologic No alteration of consciousness 04/08/2018 Neurologic No pain, generalized 2017 Physical Exam Exam Name System Name Item Name Status Result Effective Dates Notes Full Exam - ENT Constitutional general appearance Overall: well nourished 01/13/2019 None Full Exam - ENT Constitutional general appearance Overall: well developed 01/13/2019 None Full Exam - ENT Constitutional general appearance Overall: in no acute distress 01/13/2019 None Full Exam - ENT Neurologic orientation Overall: oriented to person, place and time 01/13/2019 None Full Exam - ENT Integument inspection of skin Overall: no rash, lesions 01/13/2019 None Full Exam - ENT Lymphatic palpation of lymph nodes Overall: anterior cervical chain benign 01/13/2019 None Full Exam - ENT Lymphatic palpation of lymph nodes Overall: posterior cervical chain benign 01/13/2019 None Full Exam - ENT Cardiovascular auscultation of heart Overall: regular rate 01/13/2019 None Full Exam - ENT Cardiovascular auscultation of heart Overall: normal heart sounds 01/13/2019 None Full Exam - ENT Respiratory inspection Overall: no retractions 01/13/2019 None Full Exam - ENT Respiratory inspection Overall: normal rate None Full Exam - ENT Respiratory auscultation Overall: breath sounds clear bilaterally 01/13/2019 None Full Exam - ENT Face and Head palpation Left maxillary sinus: tender 01/13/2019 None Full Exam - ENT Face and Head palpation Right maxillary sinus: tender 01/13/2019 None Full Exam - ENT Ears/Nose/Throat otoscopic exam Overall: external auditory canals normal 01/13/2019 None Full Exam - ENT Ears/Nose/Throat otoscopic exam Overall: tympanic membranes normal 01/13/2019 None Full Exam - ENT Ears/Nose/Throat oropharynx Overall: oral mucosa clear 01/13/2019 None Full Exam - General 1994 Constitutional general appearance Overall: well developed 08/23/2018 None Full Exam - General 1994 Constitutional general appearance Overall: in no acute distress 08/23/2018 None Full Exam - General 1994 Constitutional general appearance Overall: well nourished 08/23/2018 None Full Exam - General 1994 Eyes conjunctiva /eyelids Overall: conjunctiva clear 08/23/2018 None Full Exam - General 1994 Eyes conjunctiva /eyelids Overall: cornea clear 08/23/2018 None Full Exam - General 1994 Eyes conjunctiva /eyelids Overall: eyelids normal 08/23/2018 None Full Exam - General 1994 Eyes pupils and irises Overall: pupils equal, round, reactive to light and accomodation 08/23/2018 None Full Exam - General 1994 Ears/Nose/Throat otoscopic exam Overall: tympanic membranes clear 08/23/2018 None Full Exam - General 1994 Ears/Nose/Throat otoscopic exam Overall: external auditory canals clear 08/23/2018 None Full Exam - General 1994 Ears/Nose/Throat lips/teeth/gingiva Overall: benign lips 08/23/2018 None Full Exam - General 1994 Ears/Nose/Throat oral cavity/pharynx/larynx Overall: oral mucosa clear 08/23/2018 None Full Exam - General 1994 Ears/Nose/Throat oral cavity/pharynx/larynx Overall: oropharyngeal mucosa clear 08/23/2018 None Full Exam - General 1994 Respiratory respiratory effort/rhythm Overall: no retractions 08/23/2018 None Full Exam - General 1994 Respiratory respiratory effort/rhythm Overall: normal rate 08/23/2018 None Full Exam - General 1994 Respiratory auscultation Overall: breath sounds clear bilaterally 08/23/2018 None Full Exam - General 1994 Cardiovascular auscultation of heart Overall: normal heart sounds 08/23/2018 None Full Exam - General 1994 Cardiovascular auscultation of heart Overall: regular rate 08/23/2018 None Full Exam - General 1994 Musculoskeletal head and neck Overall: head atraumatic 08/23/2018 None Full Exam - General 1994 Musculoskeletal gait and station Overall: normal station 08/23/2018 None Full Exam - General 1994 Musculoskeletal gait and station Overall: normal gait 08/23/2018 None Full Exam - General 1994 Neurologic cranial nerves Overall: crainial nerves 2 - 12 grossly intact 08/23/2018 None Full Exam - General 1994 Psychiatric orientation/consciousness Overall: oriented to person, place and time 08/23/2018 None Full Exam - General 1994 Psychiatric mood and affect Overall: normal mood and affect 08/23/2018 None Full Exam - General 1994 Psychiatric appearance Overall: well-groomed, good eye contact 08/23/2018 None Full Exam - Orthopedics Constitutional general appearance Overall: well nourished 04/30/2018 None Full Exam - Orthopedics Constitutional general appearance Overall: well developed 04/30/2018 None Full Exam - Orthopedics Constitutional general appearance Overall: in no acute distress 04/30/2018 None Full Exam - Orthopedics Eyes conjunctiva/ eyelids Overall: conjunctiva clear 04/30/2018 None Full Exam - Orthopedics Eyes conjunctiva/ eyelids Overall: eyelids normal 04/30/2018 None Full Exam - Orthopedics Ears/Nose/Throat lips/teeth/gingiva Overall: benign lips 04/30/2018 None Full Exam - Orthopedics Ears/Nose/Throat oral cavity/pharynx/larynx Overall: oral mucosa clear 04/30/2018 None Full Exam - Orthopedics Respiratory respiratory effort/rhythm Overall: no retractions 04/30/2018 None Full Exam - Orthopedics Respiratory respiratory effort/rhythm Overall: normal rate 04/30/2018 None Full Exam - Orthopedics Psychiatric orientation/consciousness Overall: oriented to person, place and time 04/30/2018 None Full Exam - Orthopedics Psychiatric mood and affect Overall: normal mood and affect 04/30/2018 None Full Exam - Orthopedics Psychiatric appearance Overall: well-groomed, good eye contact 04/30/2018 None Full Exam - Orthopedics MS: spine/rib/pelvis insp & palp - S/R/P Sacroiliac palpation: right sacroiliac joint tenderness 04/30/2018 None Full Exam - General 1994 Musculoskeletal gait and station Overall: normal gait 04/08/2018 None Full Exam - General 1994 Neurologic cranial nerves Overall: crainial nerves 2 - 12 grossly intact 04/08/2018 None Full Exam - General 1994 Psychiatric orientation/consciousness Overall: oriented to person, place and time 04/08/2018 None Full Exam - General 1994 Psychiatric mood and affect Overall: normal mood and affect 04/08/2018 None Full Exam - General 1994 Psychiatric appearance Overall: well-groomed, good eye contact 04/08/2018 None Full Exam - General 1994 Constitutional general appearance Overall: well developed 04/08/2018 None Full Exam - General 1994 Constitutional general appearance Overall: in no acute distress 04/08/2018 None Full Exam - General 1994 Constitutional general appearance Overall: well nourished 04/08/2018 None Full Exam - General 1994 Eyes conjunctiva /eyelids Overall: conjunctiva clear 04/08/2018 None Full Exam - General 1994 Eyes conjunctiva /eyelids Overall: cornea clear 04/08/2018 None Full Exam - General 1994 Eyes conjunctiva /eyelids Overall: eyelids normal 04/08/2018 None Full Exam - General 1994 Eyes pupils and irises Overall: pupils equal, round, reactive to light and accomodation 04/08/2018 None Full Exam - General 1994 Ears/Nose/Throat otoscopic exam Overall: external auditory canals clear 04/08/2018 None Full Exam - General 1994 Ears/Nose/Throat otoscopic exam Overall: tympanic membranes clear 04/08/2018 None Full Exam - General 1994 Ears/Nose/Throat lips/teeth/gingiva Overall: benign lips 04/08/2018 None Full Exam - General 1994 Ears/Nose/Throat oral cavity/pharynx/larynx Overall: oral mucosa clear 04/08/2018 None Full Exam - General 1994 Ears/Nose/Throat oral cavity/pharynx/larynx Overall: oropharyngeal mucosa clear 04/08/2018 None Full Exam - General 1994 Respiratory auscultation Overall: breath sounds clear bilaterally 04/08/2018 None Full Exam - General 1994 Respiratory respiratory effort/rhythm Overall: no retractions 04/08/2018 None Full Exam - General 1994 Respiratory respiratory effort/rhythm Overall: normal rate 04/08/2018 None Full Exam - General 1994 Cardiovascular auscultation of heart Overall: regular rate 04/08/2018 None Full Exam - General 1994 Cardiovascular auscultation of heart Overall: normal heart sounds 04/08/2018 None Full Exam - General 1994 Abdomen abdominal exam Overall: normal bowel sounds 04/08/2018 None Full Exam - General 1994 Abdomen abdominal exam Lower quadrant: tender to palpation 04/08/2018 None Full Exam - General 1994 Abdomen abdominal exam Lower quadrant: dull pain 04/08/2018 None Full Exam - General 1994 Abdomen abdominal exam Lower quadrant: voluntary guarding 04/08/2018 None Full Exam - General 1994 Abdomen abdominal exam Lower quadrant: no rebound tenderness 04/08/2018 None Full Exam - General 1994 Abdomen abdominal exam Lower quadrant: no mass lesions 04/08/2018 None Full Exam - General 1994 Abdomen abdominal exam Lower quadrant: soft 04/08/2018 None Full Exam - General 1994 Abdomen abdominal exam Lower quadrant: non-tender to palpation 04/08/2018 None Full Exam - General 1994 Musculoskeletal head and neck Overall: head atraumatic 04/08/2018 None Full Exam - General 1994 Musculoskeletal gait and station Overall: normal station 04/08/2018 None Procedures Procedure Codes Date DRAIN/INJECT JOINT/BURSA CPT-4: 28872 04/30/2018 TRIAMCINOLONE ACET INJ NOS CPT-4: J3301 04/30/2018 KETOROLAC TROMETHAMINE INJ CPT-4: J1885 04/08/2018 THER/PROPH/DIAG INJ SC/IM CPT-4: 51172 04/08/2018 Vital Signs Date Vital 01/13/2019 Blood Pressure 1: 110/70 Code : 8480-6 BMI: 28.3 Code : 77546-2 Heart Rate 1 : 70 bpm Height: 5'1" SpO2: 99% Temperature: 36.5 (C) / 97.7 (F) Weight: 150 lbs 08/23/2018 Blood Pressure 1: 128/74 Code : 8480-6 BMI: 27.6 Code : 55059-2 Heart Rate 1 : 66 bpm Height: 5'1" SpO2: 98% Weight: 146 lbs 04/30/2018 BMI: 27.4 Code: 34988-7 Heart Rate 1: 80 bpm Height: 5'1" SpO2: 98% Weight: 145 lbs 04/08/2018 Blood Pressure 1: 134/72 Code : 8480-6 BMI: 27.6 Code : 51448-4 Heart Rate 1 : 74 bpm Height: 5'1" SpO2: 98% Weight: 146 lbs Functional Status No Functional Status data History of Present Illness Symptom Name Status Result Effective Date Notes Quality acute 2018 None Quality intermittent 01/13/2019 None Quality productive None Onset and Resolution ongoing 01/13/2019 None Pertinent Findings hoarseness 01/13/2019 None Pertinent Findings nasal congestion 01/13/2019 None Pertinent Findings sputum production 01/13/2019 None Pertinent Findings chills 01/13/2019 -she has had Pertinent Findings fever 01/13/2019 -she has had Onset of Symptom _ weeks ago 01/13/2019 None Limitation on Activities does not limit activities 01/13/2019 None Frequency of Episodes increasing 01/13/2019 None Triggers no known associated factors 01/13/2019 None Alleviating Factors OTC medications 01/13/2019 None memory loss Onset of Symptom 1 years ago 08/23/2018 None memory loss Frequency of Episodes daily 08/23/2018 None earache Location both ears 08/23/2018 None earache Onset and Resolution sudden in onset 08/23/2018 None earache Onset of Symptom 1 weeks ago 08/23/2018 None memory loss Quality constant 08/23/2018 None memory loss Quality worsening 08/23/2018 None memory loss Onset and Resolution gradual in onset 08/23/2018 None joint complaint Location Right Hip 04/30/2018 None joint complaint Quality acute 04/30/2018 None joint complaint Quality intermittent 04/30/2018 None joint complaint Quality worsening 04/30/2018 None joint complaint Onset and Resolution ongoing 04/30/2018 None joint complaint Pertinent Findings Denies fever 04/30/2018 None joint complaint Pertinent Findings Denies tick bite 04/30/2018 None abdominal pain Location in the RLQ 04/08/2018 None abdominal pain Quality acute 04/08/2018 None abdominal pain Quality intermittent 04/08/2018 None abdominal pain Quality worsening 04/08/2018 None abdominal pain Pertinent Findings Denies cough 04/08/2018 None abdominal pain Pertinent Findings Denies dyspnea 04/08/2018 None abdominal pain Pertinent Findings Denies fever 04/08/2018 None abdominal pain Pertinent Findings Denies vomiting 04/08/2018 None Advance Directives No Advance Directive data Encounters Encounter Performer Location Codes Date EST. PATIENT, LEVEL III Diagnosis: Cough[ICD10: R05] Diagnosis: Acute recurrent maxillary sinusitis[ICD10: J01.01] Olena Mah[facility]ood MD, [facility] CPT-4: 10234 01/13/2019 49011 EST. PATIENT, LEVEL IV Diagnosis: Other allergic rhinitis[ICD10: J30.89] Diagnosis: Mild cognitive impairment, so stated[ICD10: G31.84] [facility] CPT-4: 38276 08/23/2018 OFFICE VISIT, NEW - LEVEL 3 Diagnosis: Right lower quadrant pain[ICD10: R10.31] [facility] CPT-4: 49812 04/08/2018 Plan of Care Planned Activity Notes Codes Status Date Visit Plan: Sinusitis - Pt has acute infection - pain in face, maxillary region, Pt informed to use decongestant, RX given to patient, sinus rinses also recommended. Call if symptoms do not show improvement. 01/13/2019 Appointment: Olena Morales WPtel: [phone] [phone] (15 min) Moderate 01/13/2019 Patient Education: Patient Medication Summary Completed 01/13/2019 Visit Plan: Allergies - chronic - recommended pt to use allergy medication as prescribed. Pt has been counseled as to the appropriate use of the medication. Pt to call if allergy symptoms are not controlled with the medication. If using nasal spray, instructions as follows: Nasal spray- use twice daily, one spray per nostril twice daily, after 30 minutes, rinse out nose with saline spray.. Use opposite hand per nostril to spray in the nasal steroid allergy spray. Memory loss - slums is normal - will have pt decrease her xanax and see if improvement - notify clinic if symptoms do not improvement or with any changes, questions or concerns. 08/23/2018 Appointment: Sweta Velazquez WPtel: [facility] (15 min) Moderate 08/23/2018 Patient Education: Patient Medication Summary Completed 08/23/2018 Visit Plan: Low back pain- the patient was instructed in appropriate posture, need for weight loss to alleviate abdominal obesity that is worsening the patient's back pain.. The pt is to use prn antiinflammatories to manage acute pain. The patient is to call the office if the pain is worsening or does not improve. Joint Injection - Pt was given post - injection instructions. The pt has been advised to use anti-inflammatories post injection today, ice to the injected site, call if redness, warmth, or increased pain occurs at the site of injection. Sacroiliitis - back exercises discussed with the patient, pt to continue with anti-inflammatories. Pt is to call if the symptoms do not improve or if they worsen. 04/30/2018 Appointment: Sweta Velazquez WPtel: [id number] [place] (15 min) Moderate 04/30/2018 Patient Education: Patient Medication Summary Completed 04/30/2018 Visit Plan: Right lower quadrant pain - likely ovarian cyst - will give toradol injection - pt is to go to the ER over night if symptoms worsen or with any acute concerns. Well Adult - pt was counseled about diet, exercise, and encouraged to follow a heart healthy diet and increase activity level. The patient was instructed to RTC yearly for well adult exams and PRN for acute illnesses. The pt was also instructed to have yearly labs for check of cholesterol, thyroid, chem panel, CBC, and renal functioning. 04/08/2018 App[facility]ment: [phone] [facility] [place] New Patient 04/08/2018 Patient Education: Patient Medication Summary Completed 04/08/2018 Care Plan: [facility] : 63610-2 Pending 04/08/2018 Instructions Comment . Allergies - chronic - recommended pt to use allergy medication as prescribed. Pt has been counseled as to the appropriate use of the medication. Pt to call if allergy symptoms are not controlled with the medication. If using nasal spray, instructions as follows: Nasal spray- use twice daily, one spray per nostril twice daily, after 30 minutes, rinse out nose with saline spray.. Use opposite hand per nostril to spray in the nasal steroid allergy spray. Memory loss - slums is normal - will have pt decrease her xanax and see if improvement - notify clinic if symptoms do not improvement or with any changes, questions or concerns. . Sinusitis - Pt has acute infection - pain in face, maxillary region, Pt informed to use decongestant, RX given to patient, sinus rinses also recommended. Call if symptoms do not show improvement. . Low back pain- the patient was instructed in appropriate posture, need for weight loss to alleviate abdominal obesity that is worsening the patient's back pain.. The pt is to use prn antiinflammatories to manage acute pain. The patient is to call the office if the pain is worsening or does not improve. Joint Injection - Pt was given post - injection instructions. The pt has been advised to use anti-inflammatories post injection today, ice to the injected site, call if redness, warmth, or increased pain occurs at the site of injection. Sacroiliitis - back exercises discussed with the patient, pt to continue with anti-inflammatories. Pt is to call if the symptoms do not improve or if they worsen. . Right lower quadrant pain - likely ovarian cyst - will give toradol injection - pt is to go to the ER over night if symptoms worsen or with any acute concerns. Well Adult - pt was counseled about diet, exercise, and encouraged to follow a heart healthy diet and increase activity level. The patient was instructed to RTC yearly for well adult exams and PRN for acute illnesses. The pt was also instructed to have yearly labs for check of cholesterol, thyroid, chem panel, CBC, and renal functioning.
--- OUTSIDE RECORDS SUMMARY | 2019-03-04 12:29 | XMS REPORT | CCD ---
Author Author Sweta Velazquez Organization [facility] Address [address] [place] [address] Phone Care Team Providers Care Facility Maintenance Supervisor Name Role Phone PP Unavailable CCM Unavailable Summary Purpose Interface Exchange Insurance Providers Payer name Policy type / Coverage type Covered libertarian ID Effective Begin Date Effective End Date Cigna health and Life Insurance Commercial Insurance [id number] Unknown Family history Mother Diagnosis Age At Onset Hypertension Unknown Heart Attack Unknown Hyperlipidemia Unknown Diabetes mellitus Type 2 Unknown Father Diagnosis Age At Onset Cancer Unknown Social History Social History Element Codes Description Effective Dates Marital status Unknown Rah 01/13/2019 Number of children Unknown 2 04/08/[address]: 850396985 Never smoker 04/08/2018 Alcohol history Unknown occasionally [...] Start Date Stop Date Status Fill Instructions Xanax 0.5 mg tablet RxNorm: 121902 Tablet(s) TAKE 1 TABLET BY MOUTH THREE TIMES DAILY NEEDED 01/31/2019 03/01/2019 Active Generic For:*XANAX 0.5 MG TABLET 12:45:33 PM Xanax 0.5 mg tablet RxNorm: 319484 TAKE 1 TABLET BY MOUTH THREE TIMES DAILY NEEDED 01/31/2019 03/01/2019 Active Generic For:*XANAX 0.5 MG TABLET 11/19/2018 12 :45:33 PM Tessalon Perles 100 mg capsule RxNorm: 402513 1 Capsule(s) PO TID as needed 01/17/2019 No Stop Date Active promethazine 6.25 mg-codeine 10 mg/5 mL syrup RxNorm: 726485 5-10 Milliliter(s) PO Q6 PRN 01/13/2019 No Stop Date Active Augmentin 875 mg-125 mg tablet RxNorm: 584811 1 Tablet(s) PO BID 01/13/2019 01/19/2019 Inactive Xanax 0.5 mg tablet RxNorm: 329469 TAKE 1 TABLET BY MOUTH THREE TIMES DAILY NEEDED 11/19/2018 12/18/2018 Inactive Generic For:*XANAX 0.5 MG TABLET 11/19/2018 12:45:33 PM pantoprazole 40 mg tablet,delayed release RxNorm: 843920 1 Tablet(s) PO daily 10/18/2018 01/15/2019 Inactive Xanax 0.5 mg tablet RxNorm: 803869 1 Tablet(s) PO TID as needed 10/18/2018 12/16/2018 Inactive Xanax 0.5 mg tablet RxNorm: 551571 1 Tablet(s) PO TID as needed 10/18/2018 11/19/2018 Inactive pantoprazole 40 mg tablet,delayed release RxNorm: 197407 1 Tablet(s) PO daily 10/18/2018 10/17/2018 Inactive Xyzal 5 mg tablet RxNorm: 123413 1 Tablet(s) PO daily 201701/18/2019 Inactive Xyzal 5 mg tablet RxNorm: 763270 1 Tablet(s) PO daily 201709/20/2018 Inactive Xanax 0.5 mg tablet RxNorm: 422867 1 Tablet(s) PO TID as needed 08/06/2018 10/04/2018 Inactive Xanax 0.5 mg tablet RxNorm: 858620 1 Tablet(s) PO TID as needed 06/01/2018 07/29/2018 Inactive Kenalog 40 mg/mL suspension for injection RxNorm: 5699279 1 Milliliter(s) Inj 04/30/2018 04/30/2018 Inactive naproxen 500 mg tablet RxNorm: 945979 1 Tablet(s) PO BID 201705/04/2018 Inactive ketorolac 60 mg/2 mL intramuscular solution RxNorm: 409631 2 Milliliter(s) IM 04/08/2018 04/08/2018 Inactive multivit and minerals-ferrous gluconate oral RxNorm: oral No Start Date Active estradiol 2 mg tablet RxNorm: 756405 1 Tablet(s) PO daily No Start Date Active pantoprazole 40 mg tablet,delayed release RxNorm: 199029 1 Tablet(s) PO daily No Start Date 10/17/2018 Inactive Saloni 180 mg tablet RxNorm: 270946 1 Tablet(s) PO daily No Start Date 01/12/2019 Inactive Tessalon Perles 100 mg capsule RxNorm: 448014 1 Capsule(s) PO TID as needed No Start Date 01/16/2019 Inactive Xanax 0.5 mg tablet RxNorm: 402668 1 Tablet(s) PO QHS No Start Date 05/31/2018 Inactive Medication Administered Medication Codes Instructions Start Date Status Kenalog 40 mg/mL suspension for injection RxNorm: 5528992 1Milliliter 04/30/2018 No longer Active ketorolac 60 mg/2 mL intramuscular solution RxNorm: 304684 2Milliliter 04/08/2018 No longer Active Immunizations No [...] Procedures Procedure Codes Date DRAIN/INJECT JOINT/BURSA CPT-4: 67863 04/30/2018 TRIAMCINOLONE ACET INJ NOS CPT-4: J3301 04/30/2018 KETOROLAC TROMETHAMINE INJ CPT-4: J1885 04/08/2018 THER/PROPH/DIAG INJ SC/IM CPT-4: 73019 04/08/2018 Vital Signs Date Vital 01/13/2019 Blood Pressure 1: 110/70 Code : 8480-6 BMI: 28.3 Code : 86205-6 Heart Rate 1 : 70 bpm Height: 5'1" SpO2: 99% Temperature: 36.5 (C) / 97.7 (F) Weight: 150 lbs 08/23/2018 Blood Pressure 1: 128/74 Code : 8480-6 BMI: 27.6 Code : 32293-6 Heart Rate 1 : 66 bpm Height: 5'1" SpO2: 98% Weight: 146 lbs 04/30/2018 BMI: 27.4 Code: 40384-6 Heart Rate 1: 80 bpm Height: 5'1" SpO2: 98% Weight: 145 lbs 04/08/2018 Blood Pressure 1: 134/72 Code : 8480-6 BMI: 27.6 Code : 26187-6 Heart Rate 1 : 74 bpm Height: [...] data Encounters Encounter Performer Location Codes Date () 49543 EST. PATIENT, LEVEL III Diagnosis: Cough[ICD10: R05] Diagnosis: Acute recurrent maxillary sinusitis[ICD10: J01.01] [facility] CPT-4: 13392 01/13/2019 40959 EST. PATIENT, LEVEL IV Diagnosis: Other allergic rhinitis[ICD10: J30.89] Diagnosis: Mild cognitive impairment, so stated[ICD10: G31.84] [facility] CPT-4: 66755 08/23/2018 OFFICE VISIT, NEW - LEVEL 3 Diagnosis: Right lower quadrant pain[ICD10: R10.31] [facility] CPT-4: 81523 04/08/2018 Plan of Care Planned Activity Notes Codes Status Date Visit Plan: Sinusitis - Pt has acute infection - pain in face, maxillary region, Pt informed to use decongestant, RX given to patient, sinus rinses also recommended. Call if symptoms do not show improvement. 01/13/2019 Appointment: Olena Morales WPtel: [facility] [place] [place] [phone] (15 min) Moderate 01/13/2019 Patient Education: Patient [...] or concerns. 08/23/2018 Appointment: Sweta Velazquez WPtel: [facility] [place]0 [facility] (15 min) Moderate 08/23/2018 Patient Education: Patient [...] they worsen. 04/30/2018 Appointment: Sweta Velazquez WPtel: [facility] [place]5 [facility] (15 min) Moderate 04/30/2018 Patient Education: Patient [...] renal functioning. 04/08/2018 Appointment: Sweta Velazquez WPtel: [facility] [place]5 [facility] New Patient 04/08/2018 Patient Education: Patient Medication Summary Completed 04/08/2018 Care Plan[facility] 36668-7 Pending 04/08/2018 Instructions Comment . Allergies - [...]
[2019-03-04] MEDS ORDERED: ceFAZolin INJECTION 1,000 MG in WATER (STERILE) FOR INJECTION 10 ML IV ONE (12:30)
--- OUTSIDE RECORDS SUMMARY | 2019-03-04 12:30 | XMS REPORT | CCD ---
Author Author Sweta Velazquez Organization [facility] Address [address] [place] [address] Phone Care Team Providers Care Rehab Aide Name Role Phone PP Unavailable CCM Unavailable Summary Purpose Interface Exchange Insurance Providers Payer name Policy type / Coverage type Covered democrat ID Effective Begin Date Effective End Date Cigna health and Life Insurance Commercial Insurance [id number] Unknown Family history Mother Diagnosis Age At Onset Hypertension Unknown Heart Attack Unknown Hyperlipidemia Unknown Diabetes mellitus Type 2 Unknown Father Diagnosis Age At Onset Cancer Unknown Social History Social History Element Codes Description Effective Dates Marital status Unknown Rah 01/13/2019 Number of children Unknown 2 04/08/[address]: 343706629 Never smoker 04/08/2018 Alcohol history Unknown occasionally [...] Instructions Tessalon Perles 100 mg capsule RxNorm: 278341 1 Capsule(s) PO TID as needed 01/17/2019 No Stop Date Active Augmentin 875 mg-125 mg tablet RxNorm: 374484 1 Tablet(s) PO BID 01/13/2019 01/19/2019 Active promethazine 6.25 mg-codeine 10 mg/5 mL syrup RxNorm: 603150 5-10 Milliliter(s) PO Q6 PRN 01/13/2019 No Stop Date Active Xanax 0.5 mg tablet RxNorm: 824671 TAKE 1 TABLET BY MOUTH THREE TIMES DAILY NEEDED 11/19/2018 12/18/2018 Inactive Generic For:*XANAX 0.5 MG TABLET 11/19/2018 12:45:33 PM pantoprazole 40 mg tablet,delayed release RxNorm: 420119 1 Tablet(s) PO daily 10/18/2018 01/15/2019 Inactive Xanax 0.5 mg tablet RxNorm: 350044 1 Tablet(s) PO TID as needed 10/18/2018 12/16/2018 Inactive Xanax 0.5 mg tablet RxNorm: 569101 1 Tablet(s) PO TID as needed 10/18/2018 11/19/2018 Inactive pantoprazole 40 mg tablet,delayed release RxNorm: 175156 1 Tablet(s) PO daily 10/18/2018 10/17/2018 Inactive Xyzal 5 mg tablet RxNorm: 106454 1 Tablet(s) PO daily 201701/18/2019 Active Xyzal 5 mg tablet RxNorm: 944615 1 Tablet(s) PO daily 201709/20/2018 Inactive Xanax 0.5 mg tablet RxNorm: 940763 1 Tablet(s) PO TID as needed 08/06/2018 10/04/2018 Inactive Xanax 0.5 mg tablet RxNorm: 098016 1 Tablet(s) PO TID as needed 06/01/2018 07/29/2018 Inactive Kenalog 40 mg/mL suspension for injection RxNorm: 5667942 1 Milliliter(s) Inj 04/30/2018 04/30/2018 Inactive naproxen 500 mg tablet RxNorm: 545131 1 Tablet(s) PO BID 201705/04/2018 Inactive ketorolac 60 mg/2 mL intramuscular solution RxNorm: 765486 2 Milliliter(s) IM 04/08/2018 04/08/2018 Inactive multivit and minerals-ferrous gluconate oral RxNorm: oral No Start Date Active estradiol 2 mg tablet RxNorm: 030771 1 Tablet(s) PO daily No Start Date Active pantoprazole 40 mg tablet,delayed release RxNorm: 389072 1 Tablet(s) PO daily No Start Date 10/17/2018 Inactive Saloni 180 mg tablet RxNorm: 498525 1 Tablet(s) PO daily No Start Date 01/12/2019 Inactive Tessalon Perles 100 mg capsule RxNorm: 595398 1 Capsule(s) PO TID as needed No Start Date 01/16/2019 Inactive Xanax 0.5 mg tablet RxNorm: 854209 1 Tablet(s) PO QHS No Start Date 05/31/2018 Inactive Medication Administered Medication Codes Instructions Start Date Status Kenalog 40 mg/mL suspension for injection RxNorm: 1416114 1Milliliter 04/30/2018 No longer Active ketorolac 60 mg/2 mL intramuscular solution RxNorm: 677466 2Milliliter 04/08/2018 No longer Active Immunizations No Immunization data Assessments Condition Codes Effective Dates Acute recurrent maxillary sinusitis ICD-10: J01.01 ICD-9: 461.0 01/13/2019 Cough ICD-10: R05 ICD-9: 786.2 01/13/2019 Other allergic rhinitis ICD-10: J30.89 ICD-9: 477.8 08/23/2018 Mild cognitive impairment, so stated ICD-10: G31.84 ICD-9: 331.83 08/23/2018 Pain in right hip ICD-10: M25.551 ICD-9: 719.45 04/30/2018 Low back pain ICD-10: M54.5 ICD-9: 724.2 04/30/2018 Right lower quadrant pain ICD-10: R10.31 [...] Procedures Procedure Codes Date DRAIN/INJECT JOINT/BURSA CPT-4: 00709 04/30/2018 TRIAMCINOLONE ACET INJ NOS CPT-4: J3301 04/30/2018 KETOROLAC TROMETHAMINE INJ CPT-4: J1885 04/08/2018 THER/PROPH/DIAG INJ SC/IM CPT-4: 67877 04/08/2018 Vital Signs Date Vital 01/13/2019 Blood Pressure 1: 110/70 Code : 8480-6 BMI: 28.3 Code : 29843-3 Heart Rate 1 : 70 bpm Height: 5'1" SpO2: 99% Temperature: 36.5 (C) / 97.7 (F) Weight: 150 lbs 08/23/2018 Blood Pressure 1: 128/74 Code : 8480-6 BMI: 27.6 Code : 15818-2 Heart Rate 1 : 66 bpm Height: 5'1" SpO2: 98% Weight: 146 lbs 04/30/2018 BMI: 27.4 Code: 50874-8 Heart Rate 1: 80 bpm Height: 5'1" SpO2: 98% Weight: 145 lbs 04/08/2018 Blood Pressure 1: 134/72 Code : 8480-6 BMI: 27.6 Code : 45085-7 Heart Rate 1 : 74 bpm Height: [...] recurrent maxillary sinusitis[ICD10: J01.01] [facility]len[facility]ood MD, [facility] CPT-4: 80716 01/13/2019 15478 EST. PATIENT, LEVEL IV Diagnosis: Other allergic rhinitis[ICD10: J30.89] Diagnosis: Mild cognitive impairment, so stated[ICD10: G31.84] [facility] CPT-4: 97375 08/23/2018 OFFICE VISIT, NEW - LEVEL 3 Diagnosis: Right lower quadrant pain[ICD10: R10.31] [facility] CPT-4: 76147 04/08/2018 Plan of Care Planned Activity Notes Codes Status Date Visit Plan: Sinusitis - Pt has acute infection - pain in face, maxillary region, Pt informed to use decongestant, RX given to patient, sinus rinses also recommended. Call if symptoms do not show improvement. 01/13/2019 Appointment: Olena Morales WPtel: [address] [phone] (15 min) Moderate 01/13/2019 Patient Education: Patient [...] or concerns. 08/23/2018 Appointment: Sweta Velazquez WPtel: [facility] [place][note 2]6 [facility]66[facility] (15 min) Moderate 08/23/2018 Patient Education: [...] they worsen. 04/30/2018 Appointment: Sweta Velazquez WPtel: [facility] [place][note 2]9 [facility] [place] (15 min) Moderate 04/30/2018 Patient Education: [...] functioning. 04/08/2018 Appointment: [facility]el[facility] [address] [facility] [place] New Patient 04/08/2018 Patient Education: Patient Medication Summary Completed 04/08/2018 Care Plan: [facility] : 21844-5 Pending 04/08/2018 Instructions Comment . Allergies - [...]
--- OUTSIDE RECORDS SUMMARY | 2019-03-04 12:30 | XMS REPORT | CCD ---
Author Author Sweta Velazquez Organization [facility] Address [address] [place] [address] Phone Care Team Providers Care Fine Grade Bulldozer Operator Name Role Phone PP Unavailable CCM Unavailable Summary Purpose Interface Exchange Insurance Providers Payer name Policy type / Coverage type Covered republican ID Effective Begin Date Effective End Date Cigna health and Life Insurance Commercial Insurance [id number] Unknown Family history Mother Diagnosis Age At Onset Hypertension Unknown Heart Attack Unknown Hyperlipidemia Unknown Diabetes mellitus Type 2 Unknown Father Diagnosis Age At Onset Cancer Unknown Social History Social History Element Codes Description Effective Dates Marital status Unknown chaparrita 04/08/2018 Number of children Unknown 2 04/08/[address]: 775683944 Never smoker 04/08/2018 Alcohol history Unknown occasionally drinks alcohol 04/08/2018 Allergies, Adverse Reactions, Alerts Substance Reaction Codes Entered Date Inactivated Date Status MORPHINE SULFATE RxNorm: 7052 04/08/2018 No Inactive Date Active Past Medical History Illness Codes Condition Status Onset Date Resolved Date Mild cognitive impairment, so stated ICD-9: 331.83 ICD-10: G31.84 Active 08/23/2018 Unknown Other allergic rhinitis ICD-9: 477.8 ICD-10: J30.89 Active 08/23/2018 Unknown Low back pain ICD-9: 724.2 ICD-10: M54.5 Active 04/30/2018 Unknown Pain in right hip ICD- 9: 719.45 ICD-10: M25.551 Active 04/30/2018 Unknown Right lower quadrant pain ICD-9: 789.03 ICD-10: R10.31 Active 04/08/2018 Unknown Problems Condition Codes Effective Dates Condition Status Mild cognitive impairment, so stated ICD-9: 331.83 [...] Fill Instructions Xanax 0.5 mg tablet RxNorm: 100131 TAKE 1 TABLET BY MOUTH THREE TIMES DAILY NEEDED 11/19/2018 12/18/2018 Active Generic For:*XANAX 0.5 MG TABLET 11/19/2018 12 :45:33 PM pantoprazole 40 mg tablet,delayed release RxNorm: 840924 1 Tablet(s) PO daily 10/18/2018 01/15/2019 Active Xanax 0.5 mg tablet RxNorm: 118174 1 Tablet(s) PO TID as needed 10/18/2018 11/19/2018 Inactive Xanax 0.5 mg tablet RxNorm: 824808 1 Tablet(s) PO TID as needed 10/18/2018 12/16/2018 Active pantoprazole 40 mg tablet,delayed release RxNorm: 639781 1 Tablet(s) PO daily 10/18/2018 10/17/2018 Inactive Xyzal 5 mg tablet RxNorm: 810356 1 Tablet(s) PO daily 201701/18/2019 Active Xyzal 5 mg tablet RxNorm: 846267 1 Tablet(s) PO daily 201709/20/2018 Inactive Xanax 0.5 mg tablet RxNorm: 297469 1 Tablet(s) PO TID as needed 08/06/2018 10/04/2018 Inactive Xanax 0.5 mg tablet RxNorm: 314654 1 Tablet(s) PO TID as needed 06/01/2018 07/29/2018 Inactive Kenalog 40 mg/mL suspension for injection RxNorm: 3535186 1 Milliliter(s) Inj 04/30/2018 04/30/2018 Inactive naproxen 500 mg tablet RxNorm: 735999 1 Tablet(s) PO BID 201705/04/2018 Inactive ketorolac 60 mg/2 mL intramuscular solution RxNorm: 808905 2 Milliliter(s) IM 04/08/2018 04/08/2018 Inactive Saloni 180 mg tablet RxNorm: 899945 1 Tablet(s) PO daily No Start Date Active multivit and minerals-ferrous gluconate oral RxNorm: oral No Start Date Active estradiol 2 mg tablet RxNorm: 276475 1 Tablet(s) PO daily No Start Date Active pantoprazole 40 mg tablet,delayed release RxNorm: 471343 1 Tablet(s) PO daily No Start Date 10/17/2018 Inactive Xanax 0.5 mg tablet RxNorm: 148349 1 Tablet(s) PO QHS No Start Date 05/31/2018 Inactive Medication Administered Medication Codes Instructions Start Date Status Kenalog 40 mg/mL suspension for injection RxNorm: 5523148 1Milliliter 04/30/2018 No longer Active ketorolac 60 mg/2 mL intramuscular solution RxNorm: 363855 2Milliliter 04/08/2018 No longer Active Immunizations No Immunization data Assessments Condition Codes Effective Dates Other allergic rhinitis ICD-10: J30.89 ICD-9: 477.8 08/23/2018 Mild cognitive impairment, so stated ICD-10: G31.84 ICD-9: 331.83 08/23/2018 Low back pain ICD-10: M54.5 ICD-9: 724.2 04/30/2018 Pain in right hip ICD-10: M25.551 ICD-9: 719.45 04/30/2018 Right lower quadrant pain ICD-10: R10.31 ICD-9: 789.03 04/08/2018 Reason For Visit Reason For Visit Effective Dates Notes memory loss 08/23/2018 joint complaint 04/30/2018 right hip abdominal pain 04/08/2018 Results No Results data Review of Systems System Result Effective Dates Constitutional No recent illness 2017 Constitutional No [...] Result Effective Dates Notes Full Exam - General 1994 Constitutional general [...] Procedures Procedure Codes Date DRAIN/INJECT JOINT/BURSA CPT-4: 07801 04/30/2018 TRIAMCINOLONE ACET INJ NOS CPT-4: J3301 04/30/2018 KETOROLAC TROMETHAMINE INJ CPT-4: J1885 04/08/2018 THER/PROPH/DIAG INJ SC/IM CPT-4: 33354 04/08/2018 Vital Signs Date Vital 08/23/2018 Blood Pressure 1: 128/74 Code : 8480-6 BMI: 27.6 Code : 46202-6 Heart Rate 1 : 66 bpm Height: 5'1" SpO2: 98% Weight: 146 lbs 04/30/2018 BMI: 27.4 Code: 77118-1 Heart Rate 1: 80 bpm Height: 5'1" SpO2: 98% Weight: 145 lbs 04/08/2018 Blood Pressure 1: 134/72 Code : 8480-6 BMI: 27.6 Code : 82129-9 Heart Rate 1 : 74 bpm Height: 5'1" SpO2: 98% Weight: 146 lbs Functional Status No Functional Status data History of Present Illness Symptom Name Status Result Effective Date Notes memory loss Onset of Symptom 1 years [...] Performer Location Codes Date EST. PATIENT, LEVEL IV Diagnosis: Other allergic rhinitis[ICD10: J30.89] Diagnosis: Mild cognitive impairment, so stated[ICD10: G31.84] Sweta Mahmood MD, [facility] CPT-4: 12801 08/23/2018 OFFICE VISIT, NEW - LEVEL 3 Diagnosis: Right lower quadrant pain[ICD10: R10.31] Sweta Mahmood MD, [facility] CPT-4: 80096 04/08/2018 Plan of Care Planned Activity Notes Codes Status Date Visit Plan: Allergies - chronic - recommended [...] or concerns. 08/23/2018 Appointment: Sweta Velazquez WPtel: [address] [place], [place] [id number] (15 min) Moderate 08/23/2018 Patient Education: Patient [...] they worsen. 04/30/2018 Appointment: Sweta Velazquez WPtel: [facility]5 [email or web address] (15 min) Moderate 04/30/2018 Patient Education: Patient [...] renal functioning. 04/08/2018 Appointment: Sweta Velazquez WPtel: [facility] [place]5 [facility] [[email or web address] New Patient 04/08/2018 Patient Education: Patient Medication Summary Completed 04/08/2018 Care Plan: [facility]CREENINGMAMMOGRAPHYDIGITAL [facility] : 33143-5 Pending 04/08/2018 Instructions Comment . Allergies - [...] with any changes, questions or concerns. . Low back pain- the patient was [...]
--- OUTSIDE RECORDS SUMMARY | 2019-03-04 12:31 | XMS REPORT | CCD ---
Author Author Sweta Velazquez Organization [facility] Address [address] [place] [address] Phone Care Team Providers Care Systems Software Manager Name Role Phone PP Unavailable CCM Unavailable Summary Purpose Interface Exchange Insurance Providers Payer name Policy type / Coverage type Covered alliance party ID Effective Begin Date Effective End Date [employer] health and Life Insurance Commercial Insurance [id number] Unknown Family history Mother Diagnosis Age At Onset Hypertension Unknown Heart Attack Unknown Hyperlipidemia Unknown Diabetes mellitus Type 2 Unknown Father Diagnosis Age At Onset Cancer Unknown Social History Social History Element Codes Description Effective Dates Marital status Unknown chaparrita 04/08/2018 Number of children Unknown 2 04/08/[address]: 153793563 Never smoker 04/08/2018 Alcohol history Unknown occasionally [...] Start Date Stop Date Status Fill Instructions Xyzal 5 mg tablet RxNorm: 582094 1 Tablet(s) PO daily 201701/18/2019 Active Xyzal 5 mg tablet RxNorm: 878236 1 Tablet(s) PO daily 201709/20/2018 Inactive Xanax 0.5 mg tablet RxNorm: 722772 1 Tablet(s) PO TID as needed 08/06/2018 10/04/2018 Active Xanax 0.5 mg tablet RxNorm: 757744 1 Tablet(s) PO TID as needed 06/01/2018 07/29/2018 Inactive Kenalog 40 mg/mL suspension for injection RxNorm: 7049670 1 Milliliter(s) Inj 04/30/2018 04/30/2018 Inactive naproxen 500 mg tablet RxNorm: 414936 1 Tablet(s) PO BID 201705/04/2018 Inactive ketorolac 60 mg/2 mL intramuscular solution RxNorm: 536975 2 Milliliter(s) IM 04/08/2018 04/08/2018 Inactive pantoprazole 40 mg tablet,delayed release RxNorm: 363633 1 Tablet(s) PO daily No Start Date Active Saloni 180 mg tablet RxNorm: 542824 1 Tablet(s) PO daily No Start Date Active multivit and minerals-ferrous gluconate oral RxNorm: oral No Start Date Active estradiol 2 mg tablet RxNorm: 763563 1 Tablet(s) PO daily No Start Date Active Xanax 0.5 mg tablet RxNorm: 244231 1 Tablet(s) PO QHS No Start Date 05/31/2018 Inactive Medication Administered Medication Codes Instructions Start Date Status Kenalog 40 mg/mL suspension for injection RxNorm: 7468365 1Milliliter 04/30/2018 No longer Active ketorolac 60 mg/2 mL intramuscular solution RxNorm: 378573 2Milliliter 04/08/2018 No longer Active Immunizations No [...] 04/30/2018 None Full Exam - General 1994 Constitutional [...] and station Overall: normal station 04/08/2018 None Full Exam - General 1994 [...] Overall: well-groomed, good eye contact 04/08/2018 None Procedures Procedure Codes Date DRAIN/INJECT JOINT/BURSA CPT-4: 84482 04/30/2018 TRIAMCINOLONE ACET INJ NOS CPT-4: J3301 04/30/2018 KETOROLAC TROMETHAMINE INJ CPT-4: J1885 04/08/2018 THER/PROPH/DIAG INJ SC/IM CPT-4: 61896 04/08/2018 Vital Signs Date Vital 08/23/2018 Blood Pressure 1: 128/74 Code : 8480-6 BMI: 27.6 Code : 94777-5 Heart Rate 1 : 66 bpm Height: 5'1" SpO2: 98% Weight: 146 lbs 04/30/2018 BMI: 27.4 Code: 14161-4 Heart Rate 1: 80 bpm Height: 5'1" SpO2: 98% Weight: 145 lbs 04/08/2018 Blood Pressure 1: 134/72 Code : 8480-6 BMI: 27.6 Code : 05354-2 Heart Rate 1 : 74 bpm Height: [...] stated[ICD10: G31.84] [facility] CPT-4: 23668 08/23/2018 OFFICE VISIT, NEW - LEVEL 3 Diagnosis: Right lower quadrant pain[ICD10: R10.31] [facility] CPT-4: 61427 04/08/2018 Plan of Care Planned Activity Notes [...] changes, questions or concerns. 08/23/2018 Appointment: Sweta Velazqueztel: [facility] (15 min) Moderate 08/23/2018 Patient Education: Patient [...] or if they worsen. 04/30/2018 Appointment: Sweta Velazquezl: [facility]5 [facility] (15 min) Moderate 04/30/2018 Patient Education: Patient [...] CBC, and renal functioning. 04/08/2018 Appointment: [facility]quezl[facility] [address] [facility] New Patient 04/08/2018 Patient Education: Patient Medication Summary Completed 04/08/2018 Care Plan: SCREENINGMAMMOGRAPHYDIGITAL LOINC : 35758-0 Pending 04/08/2018 Instructions Comment . Allergies - [...]
--- OUTSIDE RECORDS SUMMARY | 2019-03-04 12:31 | XMS REPORT | CCD ---
Author Author Sweta Velazquez Organization [facility] Address [address] [place] [address] Phone Care Team Providers Care Prefabricator Name Role Phone PP Unavailable CCM Unavailable Summary Purpose Interface Exchange Insurance Providers Payer name Policy type / Coverage type Covered alliance party ID Effective Begin Date Effective End Date [employer] health and Life Insurance Commercial Insurance [id number] Unknown Family history Mother Diagnosis Age At Onset Hypertension Unknown Heart Attack Unknown Hyperlipidemia Unknown Diabetes mellitus Type 2 Unknown Father Diagnosis Age At Onset Cancer Unknown Social History Social History Element Codes Description Effective Dates Marital status Unknown chaparrita 04/08/2018 Number of children Unknown 2 04/08/[address]: 212404879 Never smoker 04/08/2018 Alcohol history Unknown occasionally [...] Start Date Stop Date Status Fill Instructions pantoprazole 40 mg tablet,delayed release RxNorm: 591368 1 Tablet(s) PO daily 10/18/2018 01/15/2019 Active Xanax 0.5 mg tablet RxNorm: 540356 1 Tablet(s) PO TID as needed 10/18/2018 12/16/2018 Active Xanax 0.5 mg tablet RxNorm: 583178 1 Tablet(s) PO TID as needed 10/18/2018 12/16/2018 Active pantoprazole 40 mg tablet,delayed release RxNorm: 908472 1 Tablet(s) PO daily 10/18/2018 10/17/2018 Inactive Xyzal 5 mg tablet RxNorm: 138941 1 Tablet(s) PO daily 201701/18/2019 Active Xyzal 5 mg tablet RxNorm: 000554 1 Tablet(s) PO daily 201709/20/2018 Inactive Xanax 0.5 mg tablet RxNorm: 777971 1 Tablet(s) PO TID as needed 08/06/2018 10/04/2018 Inactive Xanax 0.5 mg tablet RxNorm: 232066 1 Tablet(s) PO TID as needed 06/01/2018 07/29/2018 Inactive Kenalog 40 mg/mL suspension for injection RxNorm: 9595456 1 Milliliter(s) Inj 04/30/2018 04/30/2018 Inactive naproxen 500 mg tablet RxNorm: 029744 1 Tablet(s) PO BID 201705/04/2018 Inactive ketorolac 60 mg/2 mL intramuscular solution RxNorm: 261964 2 Milliliter(s) IM 04/08/2018 04/08/2018 Inactive Saloni 180 mg tablet RxNorm: 378745 1 Tablet(s) PO daily No Start Date Active multivit and minerals-ferrous gluconate oral RxNorm: oral No Start Date Active estradiol 2 mg tablet RxNorm: 664871 1 Tablet(s) PO daily No Start Date Active pantoprazole 40 mg tablet,delayed release RxNorm: 799615 1 Tablet(s) PO daily No Start Date 10/17/2018 Inactive Xanax 0.5 mg tablet RxNorm: 905861 1 Tablet(s) PO QHS No Start Date 05/31/2018 Inactive Medication Administered Medication Codes Instructions Start Date Status Kenalog 40 mg/mL suspension for injection RxNorm: 1295628 1Milliliter 04/30/2018 No longer Active ketorolac 60 mg/2 mL intramuscular solution RxNorm: 209703 2Milliliter 04/08/2018 No longer Active Immunizations No [...] Procedures Procedure Codes Date DRAIN/INJECT JOINT/BURSA CPT-4: 55555 04/30/2018 TRIAMCINOLONE ACET INJ NOS CPT-4: J3301 04/30/2018 KETOROLAC TROMETHAMINE INJ CPT-4: J1885 04/08/2018 THER/PROPH/DIAG INJ SC/IM CPT-4: 00353 04/08/2018 Vital Signs Date Vital 08/23/2018 Blood Pressure 1: 128/74 Code : 8480-6 BMI: 27.6 Code : 17434-0 Heart Rate 1 : 66 bpm Height: 5'1" SpO2: 98% Weight: 146 lbs 04/30/2018 BMI: 27.4 Code: 54472-5 Heart Rate 1: 80 bpm Height: 5'1" SpO2: 98% Weight: 145 lbs 04/08/2018 Blood Pressure 1: 134/72 Code : 8480-6 BMI: 27.6 Code : 72131-1 Heart Rate 1 : 74 bpm Height: [...] impairment, so stated[ICD10: G31.84] Sweta Mahmood MD, [facility] CPT-4: 57161 08/23/2018 OFFICE VISIT, NEW - LEVEL 3 Diagnosis: Right lower quadrant pain[ICD10: R10.31] Sweta [facility]mood MD, [facility] CPT-4: 01399 04/08/2018 Plan of Care Planned Activity Notes [...] or concerns. 08/23/2018 Appointment: Sweta Velazquez WPtel: [address] [place] [address] (15 min) Moderate 08/23/2018 Patient Education: Patient [...] they worsen. 04/30/2018 Appointment: Sweta Velazquez WPtel: [facility] [phone] (15 min) Moderate 04/30/2018 Patient Education: Patient [...] functioning. 04/08/2018 Appointment: Sweta Velazquez WPtel: [phone] [facility] New Patient 04/08/2018 Patient Education: Patient Medication Summary Completed 04/08/2018 Care Plan: SCREENINGMAMMOGRAPHYDIGITAL LOINC : 54183-7 Pending 04/08/2018 Instructions Comment . Allergies - [...]
--- OUTSIDE RECORDS SUMMARY | 2019-03-04 12:31 | XMS REPORT | CCD ---
Author Author Sweta Velazquez Organization [facility] Address [address] [place] [address] Phone Care Team Providers Care Senior Research Consultant Name Role Phone PP Unavailable CCM Unavailable Summary Purpose Interface Exchange Insurance Providers Payer name Policy type / Coverage type Covered constitution party ID Effective Begin Date Effective End Date [employer] health and Life Insurance Commercial Insurance [id number] Unknown Family history Mother Diagnosis Age At Onset Hypertension Unknown Heart Attack Unknown Hyperlipidemia Unknown Diabetes mellitus Type 2 Unknown Father Diagnosis Age At Onset Cancer Unknown Social History Social History Element Codes Description Effective Dates Marital status Unknown chaparrita 04/08/2018 Number of children Unknown 2 04/08/[address]: 803599849 Never smoker 04/08/2018 Alcohol history Unknown occasionally [...] Instructions pantoprazole 40 mg tablet,delayed release RxNorm: 765796 1 Tablet(s) PO daily 10/18/2018 01/15/2019 Active Xanax 0.5 mg tablet RxNorm: 099607 1 Tablet(s) PO TID as needed 10/18/2018 12/16/2018 Active pantoprazole 40 mg tablet,delayed release RxNorm: 975902 1 Tablet(s) PO daily 10/18/2018 10/17/2018 Inactive Xyzal 5 mg tablet RxNorm: 505540 1 Tablet(s) PO daily 201701/18/2019 Active Xyzal 5 mg tablet RxNorm: 014177 1 Tablet(s) PO daily 201709/20/2018 Inactive Xanax 0.5 mg tablet RxNorm: 866773 1 Tablet(s) PO TID as needed 08/06/2018 10/04/2018 Inactive Xanax 0.5 mg tablet RxNorm: 387444 1 Tablet(s) PO TID as needed 06/01/2018 07/29/2018 Inactive Kenalog 40 mg/mL suspension for injection RxNorm: 8384388 1 Milliliter(s) Inj 04/30/2018 04/30/2018 Inactive naproxen 500 mg tablet RxNorm: 827837 1 Tablet(s) PO BID 201705/04/2018 Inactive ketorolac 60 mg/2 mL intramuscular solution RxNorm: 683257 2 Milliliter(s) IM 04/08/2018 04/08/2018 Inactive Saloni 180 mg tablet RxNorm: 466338 1 Tablet(s) PO daily No Start Date Active multivit and minerals-ferrous gluconate oral RxNorm: oral No Start Date Active estradiol 2 mg tablet RxNorm: 415458 1 Tablet(s) PO daily No Start Date Active pantoprazole 40 mg tablet,delayed release RxNorm: 222804 1 Tablet(s) PO daily No Start Date 10/17/2018 Inactive Xanax 0.5 mg tablet RxNorm: 573573 1 Tablet(s) PO QHS No Start Date 05/31/2018 Inactive Medication Administered Medication Codes Instructions Start Date Status Kenalog 40 mg/mL suspension for injection RxNorm: 0424422 1Milliliter 04/30/2018 No longer Active ketorolac 60 mg/2 mL intramuscular solution RxNorm: 419643 2Milliliter 04/08/2018 No longer Active Immunizations No [...] Procedures Procedure Codes Date DRAIN/INJECT JOINT/BURSA CPT-4: 70615 04/30/2018 TRIAMCINOLONE ACET INJ NOS CPT-4: J3301 04/30/2018 KETOROLAC TROMETHAMINE INJ CPT-4: J1885 04/08/2018 THER/PROPH/DIAG INJ SC/IM CPT-4: 21581 04/08/2018 Vital Signs Date Vital 08/23/2018 Blood Pressure 1: 128/74 Code : 8480-6 BMI: 27.6 Code : 59072-9 Heart Rate 1 : 66 bpm Height: 5'1" SpO2: 98% Weight: 146 lbs 04/30/2018 BMI: 27.4 Code: 44443-1 Heart Rate 1: 80 bpm Height: 5'1" SpO2: 98% Weight: 145 lbs 04/08/2018 Blood Pressure 1: 134/72 Code : 8480-6 BMI: 27.6 Code : 56024-6 Heart Rate 1 : 74 bpm Height: [...] data Encounters Encounter Performer Location Codes Date 47[address] EST. PATIENT, LEVEL IV Diagnosis: Other allergic rhinitis[ICD10: J30.89] Diagnosis: Mild cognitive impairment, so stated[ICD10: G31.84] [facility] CPT-4: 70277 08/23/2018 OFFICE VISIT, NEW - LEVEL 3 Diagnosis: Right lower quadrant pain[ICD10: R10.31] [facility] CPT-4: 82176 04/08/2018 Plan of Care Planned Activity Notes [...] or concerns. 08/23/2018 Appointment: Sweta Velazquez WPtel: [facility] (15 min) Moderate 08/23/2018 Patient Education: [...] they worsen. 04/30/2018 Appointment: Sweta Velazquez WPtel: [phone] [facility]66[facility] (15 min) Moderate 04/30/2018 Patient Education: Patient [...] renal functioning. 04/08/2018 Appointment: Sw[facility] Velazquez WPtel: [phone] [place] New Patient 04/08/2018 Patient Education: Patient Medication Summary Completed 04/08/2018 Care Plan: SCREENINGMAMMOGRAPHYDIGITAL LOINC : 15940-1 Pending 04/08/2018 Instructions Comment . Allergies - [...]
--- OUTSIDE RECORDS SUMMARY | 2019-03-04 12:32 | XMS REPORT | Continuity of Care Document ---
Author Author [facility] [address] Organization [facility] [address] Address Unknown Phone Unavailable Allergies Active Description Code Type Severity Reaction Onset Reported/Identified Relationship to Patient Clinical Status Yes loracarbef [id number] Drug Allergy Unknown N/A 05/20/2018 Yes morphine [id number] Drug Allergy Unknown N/A 05/20/2018 Yes loracarbef [id number] Drug Allergy Mild HIVES 02/28/2019 Yes morphine [id number] Drug Allergy Mild ITCHING 02/28/2019 Medications There is no data. Problems Date [...] Ot 553.3 DIAPHRAGMATIC HERNIA 05/16/2015 SHWETA FOSTER SUGAR REFINERY SUPERVISOR Ot V76.12 05/16/2015 DREW DOBURTON L Ot 793.80 03/19/2016 Ot V76.12 OTH SCREEN MAMMO-MALIGN NEOPLASM OF [place] 03/19/2016 Ot V76.12 OTH SCREEN MAMMO-MALIGN NEOPLASM OF [place] 03/19/2016 MOOKIE JONES, AMINATA Haney Ot 355.6 PLANTAR NERVE LESION 03/19/2016 RICHA TINEO MD Ot V76.12 OTH SCREEN MAMMO-MALIGN NEOPLASM OF [place] 03/19/2016 Ot V72.84 EXAM PRE- OPERATIVE NOS 03/19/2016 SHWETA FOSTER SUGAR REFINERY SUPERVISOR Ot V76.12 OTH SCREEN MAMMO-MALIGN NEOPLASM OF [place] 03/19/2016 COSENS DO, BURTON L Ot 793.80 UNSPEC ABNORMAL MAMMOGRAM 03/19/2016 MIGUEL ANGEL GUERRA, GUILLERMINA Ot V72.84 EXAM PRE-OPERATIVE NOS 04/03/2016 SHWETA FOSTER SUGAR REFINERY SUPERVISOR Ot Z12.31 ENCNTR SCREEN MAMMOGRAM FOR MALIGNANT NE 04/04/2016 SHWETA FOSTER SUGAR REFINERY SUPERVISOR Ot Z12.31 ENCNTR SCREEN MAMMOGRAM FOR MALIGNANT NE 04/16/2016 SHWETA FOSTER SUGAR REFINERY SUPERVISOR Ot R92.8 OTH ABN AND INCONCLUSIVE FINDINGS ON DX 04/16/2016 SHWETA FOSTER SUGAR REFINERY SUPERVISOR Ot R92.8 OTH ABN AND INCONCLUSIVE FINDINGS ON DX 04/16/2016 SHWETA FOSTER SUGAR REFINERY SUPERVISOR Ot R92.8 OTH ABN AND INCONCLUSIVE FINDINGS ON DX 04/19/2016 Ot V76.12 OTH SCREEN MAMMO-MALIGN NEOPLASM OF [place] 04/19/2016 Ot V76.12 OTH SCREEN MAMMO-MALIGN NEOPLASM OF [place] 04/19/2016 MOOKIE JONES, AMINATA Haney Ot 355.6 PLANTAR NERVE LESION 04/19/2016 RICHA TINEO MD Ot V76.12 OTH SCREEN MAMMO-MALIGN NEOPLASM OF [place] 04/19/2016 Ot V72.84 EXAM PRE- OPERATIVE NOS 04/19/2016 SHWETA FOSTER SUGAR REFINERY SUPERVISOR Ot V76.12 OTH SCREEN MAMMO-MALIGN NEOPLASM OF [place] 04/19/2016 COSENS DO, BURTON L Ot 793.80 UNSPEC ABNORMAL MAMMOGRAM 04/19/2016 GUILLERMINA MICHELLE MD Ot V72.84 EXAM PRE-OPERATIVE NOS 05/01/2016 SHWETA FOSTER SUGAR REFINERY SUPERVISOR Ot Z12.31 ENCNTR SCREEN MAMMOGRAM FOR MALIGNANT NE 05/01/2016 SHWETA FOSTER SUGAR REFINERY SUPERVISOR Ot R92.8 OTH ABN AND INCONCLUSIVE FINDINGS ON DX 04/29/2017 SHWETA FOSTER SUGAR REFINERY SUPERVISOR Ot Z12.31 ENCNTR SCREEN MAMMOGRAM FOR MALIGNANT NE 04/29/2017 SHWETA FOSTER SUGAR REFINERY SUPERVISOR Ot R92.8 OTH ABN AND INCONCLUSIVE FINDINGS ON DX 05/01/2017 SHWETA FOSTER SUGAR REFINERY SUPERVISOR Ot Z12.31 ENCNTR SCREEN MAMMOGRAM FOR MALIGNANT NE 05/18/2017 SHWETA FOSTER SUGAR REFINERY SUPERVISOR Ot Z12.31 ENCNTR SCREEN MAMMOGRAM FOR MALIGNANT NE 02/04/2018 EARLENE CHACON MD Ot N83.201 UNSPECIFIED OVARIAN CYST, RIGHT SIDE 02/04/2018 EARLENE CHACON MD Ot R10.31 RIGHT LOWER QUADRANT PAIN 02/04/2018 EARLENE CHACON MD Ot Z88.6 ALLERGY STATUS TO ANALGESIC AGENT STATUS 02/04/2018 EARLENE CHACON MD Ot Z88.8 ALLERGY STATUS TO OTH DRUG/MEDS/BIOL SUB 02/04/2018 EARLENE CHACON MD Ot Z90.711 ACQUIRED ABSENCE OF UTERUS WITH REMAININ 02/05/2018 CRISTIAN SHWETA Ryan SUGAR REFINERY SUPERVISOR Ot Z12.31 ENCNTR SCREEN MAMMOGRAM FOR MALIGNANT NE 02/05/2018 FOSTER, SHWETA Ryan SUGAR REFINERY SUPERVISOR Ot R92.8 OTH ABN AND INCONCLUSIVE FINDINGS ON DX 02/05/2018 CRISTIAN SHWETA Ryan SUGAR REFINERY SUPERVISOR Ot Z12.31 ENCNTR SCREEN MAMMOGRAM FOR MALIGNANT NE 02/08/2018 EARLENE CHACON MD Ot N83.201 UNSPECIFIED OVARIAN CYST, RIGHT SIDE 02/08/2018 EARLENE CHACON MD Ot R10.31 RIGHT LOWER QUADRANT PAIN 02/08/2018 EARLENE CHACON MD Ot Z88.6 ALLERGY STATUS TO ANALGESIC AGENT STATUS 02/08/2018 EARLENE CHACON MD Ot Z88.8 ALLERGY STATUS TO OTH DRUG/MEDS/BIOL SUB 02/08/2018 EARLENE CHACON MD Ot Z90.711 ACQUIRED ABSENCE OF UTERUS WITH REMAININ 04/09/2018 SHWETA FOSTER A SUGAR REFINERY SUPERVISOR Ot Z12.31 ENCNTR SCREEN MAMMOGRAM FOR MALIGNANT NE 04/09/2018 SHWETA FOSTER Ryan SUGAR REFINERY SUPERVISOR Ot R92.8 OTH ABN AND INCONCLUSIVE FINDINGS ON DX 04/09/2018 SHWETA FOSTER SUGAR REFINERY SUPERVISOR Ot Z12.31 ENCNTR SCREEN MAMMOGRAM FOR MALIGNANT NE 05/05/2018 BRITTNEY MALONE [employer]EN'S LOCKER ROOM ATTENDANT Ot Z12.31 ENCNTR SCREEN MAMMOGRAM FOR MALIGNANT NE 05/10/2018 BRITTNEY MALONE MEN'S LOCKER ROOM ATTENDANT Ot Z12.31 ENCNTR SCREEN MAMMOGRAM FOR MALIGNANT NE 05/20/2018 RICHA TINEO MD Ot Z29.8 ENCOUNTER FOR OTHER SPECIFIED PROPHYLACT 05/20/2018 RICHA TINEO MD Ot Z29.8 ENCOUNTER FOR OTHER SPECIFIED PROPHYLACT 05/21/2018 RICHA TINEO MD Ot Z29.8 ENCOUNTER FOR OTHER SPECIFIED PROPHYLACT 05/21/2018 RICHA TINEO MD Ot K38.0 HYPERPLASIA OF APPENDIX 05/21/2018 RICHA TINEO MD Ot N73.6 FEMALE PELVIC PERITONEAL ADHESIONS (POST 05/21/2018 RICHA TINEO MD Ot N83.201 UNSPECIFIED OVARIAN CYST, RIGHT SIDE 05/21/2018 RIHCA TINEO MD Ot N83.202 UNSPECIFIED OVARIAN CYST, LEFT SIDE 05/21/2018 RICHA TINEO MD Ot R10.2 PELVIC AND PERINEAL PAIN 05/25/2018 RICHA TINEO MD Ot K38.0 HYPERPLASIA OF APPENDIX 05/25/2018 RICHA TINEO MD Ot N73.6 FEMALE PELVIC PERITONEAL ADHESIONS (POST 05/25/2018 RICHA TINEO MD Ot N83.201 UNSPECIFIED OVARIAN CYST, RIGHT SIDE 05/25/2018 RICHA TINEO MD Ot N83.202 UNSPECIFIED OVARIAN CYST, LEFT SIDE 05/25/2018 RICHA TINEO MD Ot R10.2 PELVIC AND PERINEAL PAIN 05/27/2018 BRITTNEY MALONE MEN'S LOCKER ROOM ATTENDANT Ot R92.2 INCONCLUSIVE MAMMOGRAM 06/07/2018 BRITTNEY MLAONE MEN'S LOCKER ROOM ATTENDANT Ot R92.2 INCONCLUSIVE MAMMOGRAM 02/14/2019 SHWETA FOSTER SUGAR REFINERY SUPERVISOR Ot Z12.31 ENCNTR SCREEN MAMMOGRAM FOR MALIGNANT NE 02/14/2019 SHWETA FOSTERP Ot R92.8 OTH ABN AND INCONCLUSIVE FINDINGS ON DX 02/14/2019 SHWETA FOSTER SUGAR REFINERY SUPERVISOR Ot Z12.31 ENCNTR SCREEN MAMMOGRAM FOR MALIGNANT NE 02/14/2019 BRITTNEY MALONE MEN'S LOCKER ROOM ATTENDANT Ot Z12.31 ENCNTR SCREEN MAMMOGRAM FOR MALIGNANT NE 02/14/2019 BRITTNEY MALONE MEN'S LOCKER ROOM ATTENDANT Ot R92.2 INCONCLUSIVE MAMMOGRAM 02/18/2019 RICHA TINEO MD, Ot R10.31 RIGHT LOWER QUADRANT PAIN 02/18/2019 RICHA TINEO MD, Ot R19.7 DIARRHEA, UNSPECIFIED 02/18/2019 RICHA TINEO MD, Ot Z90.49 ACQUIRED ABSENCE OF OTHER SPECIFIED PART 03/01/2019 RICHA TINEO MD, Ot Z01.818 ENCOUNTER FOR OTHER PREPROCEDURAL EXAMIN Procedures There is no data. Results Test Result Range CBC With Differential/Platelet - 12/19/16 09:39 WBC 5.1 x10E3/uL 3.4-10.8 RBC 4.45 x10E6/uL 3.77-5.28 Hemoglobin 13.1 g/dL 11.1-15.9 Hematocrit 40.3 % 34.0-46.6 MCV 91 fL 79-97 MCH 29.4 pg 26.6-33.0 MCHC 32.5 g/dL 31.5-35.7 RDW 13.8 % 12.3-15.4 Platelets 227 x10E3/uL 150-379 Neutrophils 57 % Lymphs 33 % Monocytes 9 % Eos 1 % Basos 0 % Neutrophils (Absolute) 2.9 x10E3/uL 1.4-7.0 Lymphs (Absolute) 1.7 x10E3/uL 0.7-3.1 Monocytes(Absolute) 0.5 x10E3/uL 0.1-0.9 Eos (Absolute) 0.0 x10E3/uL 0.0-0.4 Baso (Absolute) 0.0 x10E3/uL 0.0-0.2 Immature Granulocytes 0 % Immature Grans (Abs) 0.0 x10E3/uL 0.0-0.1 Comp. Metabolic Panel (14) - 12/19/16 09:39 Glucose, Serum 89 mg/dL 65-99 BUN 12 mg/dL 6-24 Creatinine, Serum 0.77 mg/dL 0.57-1.00 eGFR If NonAfricn Am 89 mL/min/1.73 >59 eGFR If Africn Am 103 mL/min/1.73 >59 BUN/Creatinine Ratio 16 9-23 Sodium, Serum 140 mmol/L 134-144 Potassium, Serum 4.1 mmol/L 3.5-5.2 Chloride, Serum 101 mmol/L 96-106 Carbon Dioxide, Total 24 mmol/L 18-29 Calcium, Serum 9.2 mg/dL 8.7-10.2 Protein, Total, Serum 7.1 g/dL 6.0-8.5 Albumin, Serum 4.3 g/dL 3.5-5.5 Globulin, Total 2.8 g/dL 1.5-4.5 A/G Ratio 1.5 1.1-2.5 Bilirubin, Total 0.7 mg/dL 0.0-1.2 Alkaline Phosphatase, S 61 IU/L 39-117 AST (SGOT) 14 IU/L 0-40 ALT (SGPT) 10 IU/L 0-32 Lipid Panel - 12/19/16 09:39 Cholesterol, Total 184 mg/dL 100-199 Triglycerides 64 mg/dL 0-149 HDL Cholesterol 93 mg/dL >39 VLDL Cholesterol Jesus 13 mg/dL 5-40 LDL Cholesterol Calc 78 mg/dL 0-99 TSH - 12/19/16 09:39 TSH 2.060 uIU/mL 0.450-4.500 Complete urinalysis with reflex to culture - 02/04/18 09:04 Urine color determination YELLOW NRG Urine clarity determination CLEAR NRG Urine pH measurement by test strip 5 5-9 Specific gravity of urine by test strip 1.010 1.016- 1.022 Urine protein assay by test strip, semi-quantitative NEGATIVE NEGATIVE Urine glucose detection by automated test strip NEGATIVE NEGATIVE Erythrocytes detection in urine sediment by light microscopy NEGATIVE NEGATIVE Urine ketones detection by automated test strip NEGATIVE NEGATIVE Urine nitrite detection by test strip NEGATIVE NEGATIVE Urine total bilirubin detection by test strip NEGATIVE NEGATIVE Urine urobilinogen measurement by automated test strip (mass/volume) NORMAL NORMAL Urine leukocyte esterase detection by dipstick NEGATIVE NEGATIVE Automated urine sediment erythrocyte count by microscopy (number/high power field) NONE NRG Automated urine sediment leukocyte count by microscopy (number/high power field ) [HPF] NRG Bacteria detection in urine sediment by light microscopy NEGATIVE NRG Squamous epithelial cells detection in urine sediment by light microscopy 25-50 NRG Crystals detection in urine sediment by light microscopy NONE NRG Casts detection in urine sediment by light microscopy NONE NRG Mucus detection in urine sediment by light microscopy NEGATIVE NRG Complete urinalysis with reflex to culture NO NRG Complete blood count (CBC) with automated white blood cell (WBC) differential - 02/04/18 09:43 Blood leukocytes automated count (number/volume) 4.3 10*3/uL 4.3-11.0 Blood erythrocytes automated count (number/volume) 4.09 10*6/uL 4.35-5.85 Venous blood hemoglobin measurement (mass/volume) 12.7 g/dL 11.5-16.0 Blood hematocrit (volume fraction) 37 % 35-52 Automated erythrocyte mean corpuscular volume 91 [foz_us] 80-99 Automated erythrocyte mean corpuscular hemoglobin (mass per erythrocyte) 31 pg 25-34 Automated erythrocyte mean corpuscular hemoglobin concentration measurement ( mass/volume) 34 g/dL 32-36 Automated erythrocyte distribution width ratio 13.4 % 10.0-14.5 Automated blood platelet count (count/volume) 204 10*3/uL 130-400 Automated blood platelet mean volume measurement 10.7 [foz_us] 7.4-10.4 Automated blood neutrophils/100 leukocytes 50 % 42-75 Automated blood lymphocytes/100 leukocytes 40 % 12-44 Blood monocytes/100 leukocytes 9 % 0-12 Automated blood eosinophils/100 leukocytes 1 % 0-10 Automated blood basophils/100 leukocytes 1 % 0-10 Blood neutrophils automated count (number/volume) 2.1 10*3 1.8-7.8 Blood lymphocytes automated count (number/volume) 1.7 10*3 1.0-4.0 Blood monocytes automated count (number/volume) 0.4 10*3 0.0-1.0 Automated eosinophil count 0.1 10*3/uL 0.0-0.3 Automated blood basophil count (count/volume) 0.0 10*3/uL 0.0-0.1 Comprehensive metabolic panel - 02/04/18 09:43 Serum or plasma sodium measurement (moles/volume) 140 mmol/L 135-145 Serum or plasma potassium measurement (moles/volume) 4.5 mmol/L 3.6-5.0 Serum or plasma chloride measurement (moles/volume) 108 mmol/L 98-107 Carbon dioxide 25 mmol/L 21-32 Serum or plasma anion gap determination (moles/volume) 7 mmol/L 5-14 Serum or plasma urea nitrogen measurement (mass/volume) 11 mg/dL 7-18 Serum or plasma creatinine measurement (mass/volume) 0.79 mg/dL 0.60-1.30 Serum or plasma urea nitrogen/creatinine mass ratio 14 NRG Serum or plasma creatinine measurement with calculation of estimated glomerular filtration rate > NRG Serum or plasma glucose measurement (mass/volume) 84 mg/dL 70-105 Serum or plasma calcium measurement (mass/volume) 8.9 mg/dL 8.5-10.1 Serum or plasma total bilirubin measurement (mass/volume) 0.5 mg/dL 0.1-1.0 Serum or plasma alkaline phosphatase measurement (enzymatic activity/volume) 43 U/L 40-136 Serum or plasma aspartate aminotransferase measurement (enzymatic activity/ volume) 17 U/L 5-34 Serum or plasma alanine aminotransferase measurement (enzymatic activity/volume ) 10 U/L 0-55 Serum or plasma protein measurement (mass/volume) 6.6 g/dL 6.4-8.2 Serum or plasma albumin measurement (mass/volume) 3.6 g/dL 3.2-4.5 Lipase - 02/04/18 09:43 Lipase 18 U/L 8-78 PDM - AMPHETAMINES W/ REFLEX d/l ISOMERS - 02/23/18 16:19 Prescribed Drug 1 SOMA(TM) NRG COMMENT NRG Prescribed Drug 2 Xanax(TM) NRG Amphetamine NEGATIVE ng/mL <250 medMATCH Amphetamine CONSISTENT NRG Methamphetamine NEGATIVE ng/mL <250 medMATCH Methamphetamine CONSISTENT NRG VITAMIN B12 - 02/23/18 16:19 VITAMIN B12 528 pg/mL 200-1100 Complete blood count (CBC) with automated white blood cell (WBC) differential - 05/21/18 13:15 Blood leukocytes automated count (number/volume) 6.5 10*3/uL 4.3-11.0 Blood erythrocytes automated count (number/volume) 4.14 10*6/uL 4.35-5.85 Venous blood hemoglobin measurement (mass/volume) 13.1 g/dL 11.5-16.0 Blood hematocrit (volume fraction) 38 % 35-52 Automated erythrocyte mean corpuscular volume 91 [foz_us] 80-99 Automated erythrocyte mean corpuscular hemoglobin (mass per erythrocyte) 32 pg 25-34 Automated erythrocyte mean corpuscular hemoglobin concentration measurement ( mass/volume) 35 g/dL 32-36 Automated erythrocyte distribution width ratio 14.8 % 10.0-14.5 Automated blood platelet count (count/volume) 196 10*3/uL 130-400 Automated blood platelet mean volume measurement 11.2 [foz_us] 7.4-10.4 Automated blood neutrophils/100 leukocytes 66 % 42-75 Automated blood lymphocytes/100 leukocytes 25 % 12-44 Blood monocytes/100 leukocytes 8 % 0-12 Automated blood eosinophils/100 leukocytes 1 % 0-10 Automated blood basophils/100 leukocytes 0 % 0-10 Blood neutrophils automated count (number/volume) 4.3 10*3 1.8-7.8 Blood lymphocytes automated count (number/volume) 1.6 10*3 1.0-4.0 Blood monocytes automated count (number/volume) 0.5 10*3 0.0-1.0 Automated eosinophil count 0.1 10*3/uL 0.0-0.3 Automated blood basophil count (count/volume) 0.0 10*3/uL 0.0-0.1 Methicillin resistant Staphylococcus aureus (MRSA) screening culture - 13:20 Methicillin resistant Staphylococcus aureus (MRSA) screening culture NEG NRG [id number] - 02/16/19 13:09 Serum or plasma urea nitrogen measurement (mass/volume) 11 mg/dL 7-18 Serum or plasma creatinine measurement (mass/volume) 0.82 mg/dL 0.60-1.30 Serum or plasma urea nitrogen/creatinine mass ratio 13 NRG Serum or plasma creatinine measurement with calculation of estimated glomerular filtration rate > NRG Encounters ACCT No. Visit Date/Time Discharge Status Pt. Type Provider Facility Loc./Unit Complaint [id number] 02/28/2019 06:13:00 02/28/2019 10:26:00 DIS Outpatient RICHA TINEO MD [facility] [address] PREOP CHRONIC PELVIC PAIN [id number] 02/16/2019 13:02:00 02/16/2019 23:59:59 CLS Outpatient RICHA TINEO MD [facility] [address] RAD RLQ PAIN [id number] 05/26/2018 08:32:00 05/26/2018 23:59:59 CLS Outpatient BRITTNEY MALONE APRN [facility] [address] RAD CIRCUMSCRIBED OVOID DENSITY [id number] 05/21/2018 12:34:00 05/21/2018 18:35:00 DIS Outpatient RICHA TINEO MD [facility] PELVIC MASS [id number] 05/20/2018 05:31:00 05/20/2018 10:00:00 DIS Outpatient RICHA TINEO MD [facility] [address] PREOP DIAG. LAPAROSCOPY [id number] 05/04/2018 07:33:00 05/04/2018 23:59:59 CLS Outpatient BRITTNEY MALONE APRN [facility] [address] RAD SCREENING [id number] 02/04/2018 08:45:00 02/04/2018 12:50:00 DIS Emergency EARLENE CHACON MD [facility] [address] ER ABD PAIN [id number] 04/29/2017 10:03:00 04/29/2017 23:59:59 CLS Outpatient SHWETA FOSTER SUGAR REFINERY SUPERVISOR [facility] [address] RAD SCREENING [id number] 04/15/2016 08:02:00 04/15/2016 23:59:59 CLS Outpatient SHWETA FOSTER SUGAR REFINERY SUPERVISOR [facility] [address] [facility] RAD ABNORMAL MAMMO [id number] 04/03/2016 07:35:00 04/03/2016 23:59:59 CLS Outpatient SHWETA FOSTER SUGAR REFINERY SUPERVISOR [facility] [address] [facility] RAD SCREENING [id number] 04/20/2015 08:55:00 04/20/2015 11:45:00 DIS Outpatient GUILLERMINA MICHELLE MD [facility] [id number] 04/18/2015 06:10:00 04/18/2015 23:59:59 CLS Outpatient GUILLERMINA MICHELLE MD [facility] [address] PREOP [id number] 04/04/2015 08:17:00 04/04/2015 23:59:59 CLS Outpatient COS DO, BURTON L [facility] [address] RAD [id number] 03/28/2015 07:32:00 03/28/2015 23:59:59 CLS Outpatient SHWETA FOSTER [facility] [address] RAD [id number] 01/12/2014 09:04:00 01/12/2014 23:59:59 CLS Outpatient RICHA TINEO MD [facility] [address] RAD [id number] 09/28/2013 15:39:00 09/28/2013 23:59:59 CLS Outpatient AMINATA DAMICO DPM [facility] [address] RAD [id number] 03/04/2019 15:00:00 PEN Preadmit RICHA TINEO MD [facility] CHRONIC PELVIC PAIN [id number] 02/20/2015 12:34:00 Document Registration [id number] 01/31/2015 07:39:00 Document Registration [id number] 01/25/2015 06:22:00 Document Registration [id number] 01/21/2013 08:31:00 Document Registration [id number] 09/01/2012 15:28:00 Document Registration [id number] 08/18/2011 07:21:00 Document Registration [id number] 12/18/2010 08:04:00 Document Registration [id number] 02/23/2018 15:20:00 02/23/2018 23:59:59 CLS Outpatient [facility]UN [facility] [id number] 02/23/2018 15:20:00 Document Registration [id number] 12/20/2016 13:05:00 Document Registration [id number] 03/03/2018 12:06:16 03/03/2018 23:59:59 CLS Outpatient
[2019-03-04] MEDS ORDERED: CATHETER FLUSH 10 ML SYR IV PRN (12:45)
[2019-03-04 12:51] LABS: BASOPHILS % (AUTO) 0 % (0-10); EOSINOPHILS # (AUTO) 0.1 10^3/uL (0.0-0.3); EOSINOPHILS % (AUTO) 1 % (0-10); HEMATOCRIT 37 % (35-52); HEMOGLOBIN 12.6 G/DL (11.5-16.0); LYMPHOCYTES # (AUTO) 2.1 X 10^3 (1.0-4.0); LYMPHOCYTES % (AUTO) 45 % (12-44); MEAN CORPUSCULAR HEMOGLOBIN 31 PG (25-34); MEAN CORPUSCULAR HGB CONC 34 G/DL (32-36); MEAN CORPUSCULAR VOLUME 90 FL (80-99); MEAN PLATELET VOLUME 10.2 FL (7.4-10.4); MONOCYTES # (AUTO) 0.5 X 10^3 (0.0-1.0); MONOCYTES % (AUTO) 10 % (0-12); NEUTROPHILS # (AUTO) 2.1 X 10^3 (1.8-7.8); NEUTROPHILS % (AUTO) 44 % (42-75); PLATELET COUNT 192 10^3/uL (130-400); RED CELL DISTRIBUTION WIDTH 14.2 % (10.0-14.5); WHITE BLOOD COUNT 4.8 10^3/uL (4.3-11.0)
[2019-03-04 12:59] VITALS: BP 113/79
[2019-03-04] MEDS: LACTATED RINGERS 1,000 ML IV PRN ×3 (13:01→16:46)
[2019-03-04] MEDS ORDERED: BUP/EPI 0.5% 1:200,000 (SENSORCAINE) 30 ML VIAL ONE (13:42)
[2019-03-04] MEDS ORDERED: BUP/EPI 0.25% 1:200,000 (MARCAINE) 10 ML VIAL IJ ONE ×2 (13:52→15:28)
[2019-03-04] MEDS ORDERED: LIDOCAINE PF 2% 5 ML (XYLOCAINE) VIAL ONE (14:02)
[2019-03-04] MEDS ORDERED: SEVOFLURANE (ULTANE) 15 ML INHAL SOLN ONE ×4 (14:02→16:10)
[2019-03-04] MEDS ORDERED: MIDAZOLAM 2 MG/2 ML (VERSED) VIAL ONE (14:02)
[2019-03-04] MEDS ORDERED: ONDANSETRON 4 MG/2 ML (SDV) Z0FRAN ONE ×2 (14:02→14:03)
[2019-03-04] MEDS ORDERED: proPOfol 200 MG/20 ML (DIPRIVAN) VIAL IV ONE (14:02)
[2019-03-04] MEDS ORDERED: DEXAMETHASONE 10 MG/ML (DECADRON) 1 ML VIAL ONE (14:02)
[2019-03-04] MEDS ORDERED: fentaNYL INJECTION 100 MCG/2 ML AMP ONE ×2 (14:02→15:58)
[2019-03-04] MEDS ORDERED: SCOPOLAMINE 1.5 MG (TRANSDERM-SCOP) PATCH ONE (14:03)
[2019-03-04] MEDS ORDERED: FAMOTIDINE 20MG/2ML IV (PEPCID) ONE (14:03)
[2019-03-04] MEDS ORDERED: LACTATED RINGERS 1,000 ML IV PRN (14:12)
[2019-03-04] MEDS ORDERED: SCOPOLAMINE 1.5 MG (TRANSDERM-SCOP) PATCH TOP ONE (14:15)
[2019-03-04] MEDS ORDERED: ONDANSETRON 4 MG/2 ML (SDV) Z0FRAN IV ONE (14:15)
[2019-03-04] MEDS ORDERED: FAMOTIDINE 20MG/2ML IV (PEPCID) IV ONE (14:15)
--- NOTE | 2019-03-04 15:07 | Progress Note-Pre Operative ---
Pre-Operative Progress Note H&P Reviewed The H&P was reviewed, patient examined and no changes noted. Date Seen by Provider: Mar 04, 2019 Time Seen by Provider: 15:07 Date H&P Reviewed: Mar 04, 2019 Time H&P Reviewed: 15:07 Pre-Operative Diagnosis: Chronic pelvic pain RICHA TINEO MD Mar 04, 2019 15:07
[2019-03-04] MEDS ORDERED: D5 LR IV SOLUTION 1,000 ML IV SCH (15:08)
--- NOTE | 2019-03-04 15:08 | Progress Note-Post Operative ---
Post-Operative Progess Note Surgeon (s)/Timber Appraiser (s) Surgeon RICHA TINEO MD Timber Appraiser: Nathalie Goodson Pre-Operative Diagnosis Chronic pelvic pain Post-Operative Diagnosis Same with pelvic adhesions and with pathology pending Procedure & Operative Findings Date of Procedure 03/04/19 Procedure Performed/Findings D XL S converted to pelvis could be for resection of right round ligament, adhesio lysis, biopsy pericolic gutter peritoneum, removal of right peritoneal abdominal wall lesions, destruction of endometriosis Anesthesia Type GETA Estimated Blood Loss Estimated blood loss (mL): Minimal Specimens/Packing Specimens Removed Right round ligament with scar tissue, paracolic gutter peritoneum biopsy, abdominal wall pedunculated soft tissue mass RICHA TINEO MD Mar 04, 2019 15:08
[2019-03-04] MEDS ORDERED: OXYC1TAB87 PO (15:10)
--- NOTE | 2019-03-04 15:12 | Discharge Instructions ---
Discharge Instructions Discharge Medications New, Converted or Re-Newed RX: RX on Chart Patient Instructions Patient Instructions: As directed Return to The Hospital For: As directed Activity & Diet Discharge Diet: No Restrictions Activity as Tolerated: No Orders-Post D/C & Referrals Follow Up Appt: Call to make follow up appt. for patient in 1 weeks. Activity: Rest for 24 hours, than as tolerated. Wound Care: May remove Band-Aid tomorrow. Replace as desired. Keep incisions clean and dry. Wash daily with soap and water. Diet: As tolerated-Clear Liquids only if nauseated. shower or tub bathe as desired. No driving for 24 hours, no alcoholic beverages for 24 hours, and nothing per vagina (no tampons, douching, or intercoUrse) for 1 weeks. Patient to return to the clinic as soon as possible for: Temperature greater than 101F, Severe Pain, Foul discharge from incision or vagina, Excessive Bleeding (more than a period). RICHA TINEO MD Mar 04, 2019 15:12
[2019-03-04] MEDS ORDERED: MEPERIDINE (DEMEROL) INJ 100 MG/ML IM ONE (15:15)
[2019-03-04] MEDS ORDERED: oxyCODONE/APAP 5/325MG (PERCOCET 5) TABLET PO PRN (15:15)
[2019-03-04] MEDS ORDERED: KETOROLAC 30 MG/ML VIAL IVP ONE (15:15)
[2019-03-04] MEDS ORDERED: ONDANSETRON 4 MG/2 ML (SDV) Z0FRAN IVP PRN ×2 (15:15→16:30)
[2019-03-04] MEDS ORDERED: PROMETHAZINE INJ 25 MG/ML (PHENERGAN) AMP IM ONE (15:15)
[2019-03-04] MEDS ORDERED: HYDROmorphone 2 MG/ML VIAL (DILAUDID) ONE (15:57)
[2019-03-04] MEDS ORDERED: MEPERIDINE (DEMEROL) INJ 50 MG/ML ONE (15:57)
[2019-03-04] MEDS ORDERED: ROCURONIUM 10 MG/ML 5 ML SYRINGE IV ONE (16:10)
[2019-03-04] MEDS ORDERED: NEOSTIGMINE 1 MG/ML 5 ML SYRINGE ONE (16:10)
[2019-03-04] MEDS ORDERED: GLYCOPYRROLATE 0.2 MG/ML (ROBINUL) 2 ML VIAL ONE (16:10)
[2019-03-04] MEDS ORDERED: KETOROLAC 30 MG/ML VIAL ONE (16:11)
[2019-03-04] MEDS ORDERED: fentaNYL INJECTION 100 MCG/2 ML AMP IVP ONE (16:30)
[2019-03-04] MEDS ORDERED: PROMETHAZINE INJ 25 MG/ML (PHENERGAN) AMP IVP ONE (16:30)
[2019-03-04] MEDS ORDERED: HYDROmorphone 2 MG/ML VIAL (DILAUDID) IV ONE (16:30)
--- NOTE | 2019-03-04 17:20 | NUR ---
Pt transferred to room 305 via cart with PACU staff @ side. pt resting with eyes closed. talks when spoken to. vs taken. bedside report received from ILIA Wilson. care assumed of pt.
[2019-03-04 17:25] VITALS: BP 113/75
--- NOTE | 2019-03-04 17:25 | NUR ---
initial shift assessment completed, see interventions for further. john paul erickson x3 noted. D/I. IV site patent, IV tubing changed. @ side. POC reviewed, states understanding. call light within reach.
--- NOTE | 2019-03-04 17:41 | NUR ---
Percocet Rx given to .
--- NOTE | 2019-03-04 18:56 | NUR ---
called to check on pt's status. update given. no new orders received.
--- NOTE | 2019-03-04 18:58 | NUR ---
assisted up to BR. voided 300cc urine without difficulty. winnie-care given.
--- NOTE | 2019-03-04 19:17 | NUR ---
report given to ILIA Rodriguez.
[2019-03-04 20:00] VITALS: BP 146/82
--- NOTE | 2019-03-04 20:00 | NUR ---
on unit. States pt is ready for discharge.
[2019-03-04 20:30] VITALS: BP 146/82
--- NOTE | 2019-03-04 20:30 | NUR ---
Discharge instructions verbalized. pt verbalized understanding. pt taken down via w'c. s/o at side. pt will follow up with in office.
--- NOTE | 2019-03-05 03:09 | OPERATIVE REPORT ---
DATE OF SERVICE: 03/04/2019 PREOPERATIVE DIAGNOSIS: Right lower quadrant pain. POSTOPERATIVE DIAGNOSIS: Right lower quadrant pain. OPERATIVE PROCEDURE: Diagnostic laparoscopy converted to pelviscopy for removal of right round ligament remnants and scar tissue and staple line from the right pelvis as well as adhesiolysis and biopsy of right pericolic gutter peritoneum and removal of pedunculated adipose-appearing tissue from the right abdominal cavity sidewall. OPERATIVE DESCRIPTION: With the patient in supine position under satisfactory general anesthesia, she was repositioned in dorsal lithotomy position in the [facility] and prepped and draped in the usual fashion for abdominal and vaginal surgery. A moist Kerlix was placed in the vagina to distend the upper vagina. The patient's abdomen was exposed and a 5 mm incision made in left upper quadrant. Veress needle was placed through the stab wound in the umbilicus and the abdomen was insufflated with 2.4 liters of carbon dioxide after confirming correct placement with water drop test. A 5 mm port was placed under direct vision in the left upper quadrant. Veress needle was removed. A 5 mm port was initially placed in the infraumbilical incision and a 5 mm port placed suprapubically. The pelvis was examined. There were minimal adhesions except on the right side, there was a remnant of the right round ligament that was adherent to the apex of the vagina. There was a significant staple line on the right that was confluent with this. It was away from the ureter, which was seemed to peristalse. There was lacy-appearing peritoneum in the pericolic gutter terminus on the right and there were pedunculated yellowish tissue masses on the peritoneum of the right mid lateral abdominal wall peritoneum. The left pelvis appeared normal. There were sean there from her oophorectomy. There was normal-appearing bladder. There was no obvious endometriosis. There were no adhesions of bowel to any of the pelvis. Decision was made to remove the remnant of the round ligament that was stretched and appeared to be under tension and involved with scar tissue to the apex of the vagina. The staple line was grasped at the apex where the IP ligament would have been resected and the peritoneum was divided removing that staple line in the process sparing well clear of the ureter. This brought the dissection down to the round ligament, which was divided close to its axis through the right abdominal wall and then the peritoneum was divided to allow the adhesions. They were involved in the terminus of the right round ligament at its attachment point to the vaginal cuff to be resected entirely along with some dense fibrotic-appearing scar tissue. That specimen was sent to pathology labeled as right round ligament and staple line. Couple remaining sean were removed under direct vision from that area. Lacy-appearing peritoneum and the right terminus of the pericolic gutter was grasped and a authorization representative biopsy was taken and sent to pathology, labeled as such, and then the pedunculated lesions on the right abdominal side wall peritoneum were removed and sent to pathology as well. The pelvis was irrigated and examined for hemostasis, which was complete. There was no remaining abnormal or concerning appearing pathology. Both ureters were seemed to peristalse. The procedure at this point was terminated. The operative instruments were removed under direct vision as were the ports. The abdomen was evacuated of the insufflating gas in the process of removing the ports. The skin incisions were closed with nylon sutures. The fascia at the infraumbilical incision, which had been extended to allow for a 12 mm port to be replaced instead of the 5 mm port. It was now closed with a ffbuhb-bn-heasa suture of 2-0 Vicryl. The Kerlix gauze was removed from the vagina. Sponge and needle counts correct. Estimated blood loss was minimal. The patient tolerated the procedure well and was uneventfully awakened from general anesthesia and transferred to recovery room in stable condition with plans for discharge home PAR. Job ID: [id number] DocumentID: [id number] Dictated Date: 03/04/2019 16:13:51 Functional Tester [employer] Date: 03/05/2019 03:09:14 Dictated By: RICHA TINEO MD
[2019-03-07] MEDS ORDERED: SCOPOLAMINE PATCH REMOVAL TP SCH (14:00)
== END 2019-03-04 20:30 | disposition home or self-care (01) ==
LOC: SDC 12:21 → WS 17:25 → SDC 20:30
PROVIDERS: ATTEND Obstetrics & Gynecology
DX: N94.89 Other specified conditions associated with female genital organs and menstrual cycle (principal); D17.79 Benign lipomatous neoplasm of other sites; K21.9 Gastro-esophageal reflux disease without esophagitis
CPT/HCPCS: 36415; 85025; 87081

== ENCOUNTER → 2019-05-06 | Outpatient (CLI) | payer OTHER ==
--- NOTE | 2019-05-06 17:30 | Diagnostic Imaging Report ---
INDICATION: Routine screening. COMPARISON: Prior mammograms from 05/04/2018 and 04/29/2017. EXAMINATION: 2D and 3D bilateral screening mammography was performed with CAD. The current study was also evaluated with a Computer Aided Detection (CAD) system. FINDINGS: The breasts remain heterogeneously dense, limiting the sensitivity of mammography. Benign-appearing nodules in the central inferior right breast appear stable. No spiculated mass or malignant appearing microcalcifications are seen. Axillae are unremarkable. IMPRESSION: No mammographic features suspicious for malignancy are identified. ACR BI-RADS Category 2: Benign findings. Result letter will be mailed to the patient. Note: At least 10% of breast cancer is not imaged by mammography. Dictated by: Dictated on workstation # [id number]
== END ==
LOC: RAD 07:42
PROVIDERS: ATTEND Obstetrics & Gynecology
DX: Z12.31 Encounter for screening mammogram for malignant neoplasm of breast (principal)
CPT/HCPCS: 77067

== ENCOUNTER → 2019-09-09 | Outpatient (CLI) | payer OTHER ==
[~2019-09-09] MED LIST changes: +CATHETER FLUSH 10 ML SYR IV PRN; +HOLD METFORMIN - RECEIVED CONTRAST 20 ML VIAL IV SCH; +IOHEXOL 350 MG/ML 100 ML (OMNIPAQUE 350) VIAL IV ONE; +NS 100 ML (IVPB) BAG IV ONE; -OMEP20CA12 PO; +OMEP20CA13 PO
[2019-09-09 14:07] LABS: BUN/CREATININE RATIO 11; CALCIUM 9.2 MG/DL (8.5-10.1); CARBON DIOXIDE 26 MMOL/L (21-32); CHLORIDE 105 MMOL/L (98-107); CREATININE SERUM 0.84 MG/DL (0.60-1.30); GFR ESTIMATED > 60; GLUCOSE 89 MG/DL (70-105); POTASSIUM 4.2 MMOL/L (3.6-5.0); SODIUM 139 MMOL/L (135-145)
--- NOTE | 2019-09-09 15:20 | Diagnostic Imaging Report ---
PROCEDURE: CT abdomen and pelvis with contrast. TECHNIQUE: Multiple contiguous axial images were obtained through the abdomen and pelvis after administration of intravenous contrast. Auto Exposure Controls were utilized during the CT exam to meet ALARA standards for radiation dose reduction. INDICATION: Right lower quadrant pain for 4-5 weeks, worsening. COMPARISON: 02/16/2019. FINDINGS: The lung bases are clear. The heart is normal in size. There is no pericardial effusion. The liver demonstrates no focal lesions. Cholecystectomy clips are noted. The spleen appears normal. The pancreas is normal. The adrenal glands are normal. There is a duplicated right renal collecting system. The kidneys otherwise appear normal with no hydronephrosis. There are sutures seen at the stomach along the greater curvature. No dilated loops of bowel are seen. No bowel wall thickening. The appendix is not seen, but no secondary findings of appendicitis are appreciated. No free fluid or free air is seen. No acute osseous abnormality is seen. IMPRESSION: 1. No acute abdominopelvic abnormality is seen. The appendix is not seen, but no secondary findings of appendicitis are seen. 2. 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 No hydronephrosis or hydroureter is seen. Dictated by: Dictated on workstation # [id number]
== END ==
LOC: RAD 13:40
PROVIDERS: ATTEND Nurse Practitioner Family
DX: R10.31 Right lower quadrant pain (principal); Z90.49 Acquired absence of other specified parts of digestive tract; Z98.890 Other specified postprocedural states
CPT/HCPCS: 36415; 74177; 80048

== ENCOUNTER 2020-03-04 21:08 | Emergency (ER) | payer OTHER ==
[~2020-03-04] VITALS: Ht 155 cm; Wt 63.0 kg
[~2020-03-04 21:08] MED LIST changes: -CATHETER FLUSH 10 ML SYR IV PRN; -HOLD METFORMIN - RECEIVED CONTRAST 20 ML VIAL IV SCH; -IOHEXOL 350 MG/ML 100 ML (OMNIPAQUE 350) VIAL IV ONE; -NS 100 ML (IVPB) BAG IV ONE; -OMEP20CA13 PO; +OMEP20CA18 PO
[2020-03-04] MEDS ORDERED: LEVO5TAB12 (21:24)
[2020-03-04] MEDS ORDERED: PANT40TA3 (21:24)
[2020-03-04] MEDS ORDERED: FLUO20CA46 (21:24)
[2020-03-04] MEDS ORDERED: LACTATED RINGERS 1,000 ML IV STA (21:30)
[2020-03-04 21:38] LABS: BASOPHILS % (AUTO) 0 % (0-10); EOSINOPHILS # (AUTO) 0.1 10^3/uL (0.0-0.3); EOSINOPHILS % (AUTO) 1 % (0-10); HEMATOCRIT 39 % (35-52); LYMPHOCYTES # (AUTO) 2.2 X 10^3 (1.0-4.0); LYMPHOCYTES % (AUTO) 38 % (12-44); MEAN CORPUSCULAR HEMOGLOBIN 30 PG (25-34); MEAN CORPUSCULAR HGB CONC 33 G/DL (32-36); MEAN CORPUSCULAR VOLUME 91 FL (80-99); MEAN PLATELET VOLUME 9.9 FL (7.4-10.4); MONOCYTES # (AUTO) 0.7 X 10^3 (0.0-1.0); MONOCYTES % (AUTO) 12 % (0-12); NEUTROPHILS # (AUTO) 2.8 X 10^3 (1.8-7.8); NEUTROPHILS % (AUTO) 49 % (42-75); PLATELET COUNT 204 10^3/uL (130-400); RED CELL DISTRIBUTION WIDTH 14.3 % (10.0-14.5); WHITE BLOOD COUNT 5.8 10^3/uL (4.3-11.0)
--- NOTE | 2020-03-04 21:38 | ED General ---
General Chief Complaint: Cardiac/General Problems Stated Complaint: CHEST HEAVINESS Source of Information: Patient Exam Limitations: No Limitations History of Present Illness Date Seen by Provider: Mar 04, 2020 Time Seen by Provider: 21:18 Initial Comments Here with approximately one week of fatigue, chest pressure and body aches witho ut fever, nausea, vomiting or diarrhea. Did have movement to [facility] about 2 weeks ago to help her son moved. She denies any other significant contact other than her family. Nobody else sick. She was seen in tested at [facility] 7 days ago but has not had results yet for COVID-19. She did have negative strep and flu at the time. She has been at home for the last 9 days in quarantine with her . Concern today is that she had shortness of breath with the chest pressure and she was worried that she does not have the results yet for the COVID-19 testing. Timing/Duration: 1 Week, Getting Worse Severity: Moderate Associated Systoms: No Cough, No Fever/Chills, No Nausea/Vomiting; Shortness of Air, Weakness Allergies and Home Medications Allergies Coded Allergies: loracarbef (Unverified Allergy, Mild, HIVES, pt has received Ancef in the past, 03/04/19) morphine (Unverified Allergy, Mild, ITCHING, Pt has rec Lortab & Percocet in the past, 03/04/19) Home Medications Alprazolam 0.5 Mg Tablet, 0.5 MG PO HS, (Reported) Estradiol 1 Mg Tablet, 1 MG PO DAILY, (Reported) Fexofenadine/Pseudoephedrine 1 Each Tab.er.24h, 1 EACH PO DAILY, (Reported) Multivitamin 1 Each Tablet, 1 EACH PO DAILY, (Reported) Omeprazole 20 Mg Capsule.dr, 20 MG PO DAILY, (Reported) Vit B Comp/C/FA/Iron/Vit E 1 Each Tablet, 1 EACH PO DAILY, (Reported) Patient Home Medication List Home Medication List Reviewed: Yes Review of Systems Review of Systems Constitutional: see HPI; No fever; malaise, other (Profound fatigue) EENTM: no symptoms reported Respiratory: No cough; dyspnea on exertion; No wheezing Cardiovascular: see HPI, chest pain (Nonradiating central chest heaviness); No edema Gastrointestinal: No abdominal pain, No nausea, No vomiting Genitourinary: no symptoms reported Musculoskeletal: No back pain; muscle weakness Skin: no symptoms reported Psychiatric/Neurological: No Symptoms Reported Hematologic/Lymphatic: No Symptoms Reported All Other Systems Reviewed Negative Unless Noted: Yes Past Irrbaoh-Viphfx-Bcqppj Hx Past Med/Social Hx: Reviewed Nursing Past Med/Soc Hx Patient Social History Alcohol Use: Denies Use Recreational Drug Use: No Smoking Status: Never a Smoker (Smoker) 2nd Hand Smoke Exposure: No Recent Hopitalizations: No Immunizations Up To Date Date of Influenza Vaccine: Sep 14, 2017 Seasonal Allergies Seasonal Allergies: Yes Past Medical History Surgeries: Yes ( ELDA. 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 Sexually Transmitted Disease: No HIV/AIDS: No Genitourinary: No Gastrointestinal: Yes Gastroesophageal Reflux Musculoskeletal: No Endocrine: No HEENT: No Loss of Vision: Denies Hearing Impairment: Denies Cancer: No Psychosocial: Yes Sleep Difficulties Integumentary: No Blood Disorders: No Adverse Reaction/Blood Tranf: No (N/A) Family Medical History Reviewed Nursing Family Hx Physical Exam Vital Signs Vital Signs - First Documented 03/04/20 21:08 Temp 36.7 Pulse 60 Resp 18 B/P (MAP) 124/83 (97) Pulse Ox 97 O2 Delivery Room Air Capillary Refill : Less Than 3 Seconds Height, Weight, BMI Height: 5'1.00" Weight: 138lbs. 0.0oz. 62.346673hv; 26.1 BMI Method:Stated General Appearance: No Apparent Distress, WD/WN HEENT: PERRL/EOMI, TMs Normal, Pharynx Normal Neck: Non Tender, Supple Respiratory: Lungs Clear, Normal Breath Sounds Cardiovascular: Regular Rate, Rhythm, No Murmur Gastrointestinal: Non Tender, Soft Back: Normal Inspection, No CVA Tenderness, No Vertebral Tenderness Extremity: Normal Range of Motion, Non Tender Neurologic/Psychiatric: Alert, Oriented x3 Skin: Normal Color, Warm/Dry Progress/Results/Core Measures Suspected Sepsis SIRS Temperature: Pulse: Respiratory Rate: Laboratory Tests 03/04/20 21:20: White Blood Count 5.8 Blood Pressure / Mean: Laboratory Tests 03/04/20 21:20: Creatinine 0.92, Platelet Count 204, Total Bilirubin 0.2 Results/Orders Lab Results Laboratory Tests Test 03/04/20 21:20 Range/Units White Blood Count 5.8 4.3-11.0 10^3/uL Red Blood Count 4.28 L 4.35-5.85 10^6/uL Hemoglobin 13.0 11.5-16.0 G/DL Hematocrit 39 35-52 % Mean Corpuscular Volume 91 80-99 FL Mean Corpuscular Hemoglobin 30 25-34 PG Mean Corpuscular Hemoglobin Concent 33 32-36 G/DL Red Cell Distribution Width 14.3 10.0-14.5 % Platelet Count 204 130-400 10^3/uL Mean Platelet Volume 9.9 7.4-10.4 FL Neutrophils (%) (Auto) 49 42-75 % Lymphocytes (%) (Auto) 38 12-44 % Monocytes (%) (Auto) 12 0-12 % Eosinophils (%) (Auto) 1 0-10 % Basophils (%) (Auto) 0 0-10 % Neutrophils # (Auto) 2.8 1.8-7.8 X 10^3 Lymphocytes # (Auto) 2.2 1.0-4.0 X 10^3 Monocytes # (Auto) 0.7 0.0-1.0 X 10^3 Eosinophils # (Auto) 0.1 0.0-0.3 10^3/uL Basophils # (Auto) 0.0 0.0-0.1 10^3/uL D-Dimer 0.29 0.00-0.49 UG/ML Sodium Level 137 135-145 MMOL/L Potassium Level 4.1 3.6-5.0 MMOL/L Chloride Level 106 98-107 MMOL/L Carbon Dioxide Level 22 21-32 MMOL/L Anion Gap 9 5-14 MMOL/L Blood Urea Nitrogen 14 7-18 MG/DL Creatinine 0.92 0.60-1.30 MG/DL Estimat Glomerular Filtration Rate > 60 BUN/Creatinine Ratio 15 Glucose Level 94 70-105 MG/DL Calcium Level 8.6 8.5-10.1 MG/DL Corrected Calcium 8.8 8.5-10.1 MG/DL Total Bilirubin 0.2 0.1-1.0 MG/DL Aspartate Amino Transf (AST/SGOT) 16 5-34 U/L Alanine Aminotransferase (ALT/SGPT) 12 0-55 U/L Alkaline Phosphatase 53 40-136 U/L Lactate Dehydrogenase 114 L 125-220 U/L C-Reactive Protein High Sensitivity 0.06 0.00-0.50 MG/DL Total Protein 6.6 6.4-8.2 GM/DL Albumin 3.8 3.2-4.5 GM/DL My Orders Orders - SELWYN ECHEVERRIA MD Cbc With Automated Diff (03/04/20 21:30) Comprehensive Metabolic Panel (03/04/20 21:30) Troponin I (03/04/20:) Chest 1 View, Ap/Pa Only (03/04/20:30) Ed Iv/Invasive Line Start (03/04/20:30) Ekg Tracing (03/04/20) Monitor-Rhythm Ecg Trace Only (03/04/20) Fibrin Degradation Products (03/04/20) Procalcitonin (Pct) (03/04/20:30) Hs C Reactive Protein (03/04/20:) Erythrocyte Sedimentation Rate (03/04/20:) LDH (03/04/20:30) Lactated Ringers (Lr 1000 Ml Iv Solution (03/04/20:30) Rx-Albuterol Inhaler (Rx-Proair) (03/04/20 22:02) Vital Signs/I&O 03/04/20 21:08 Temp 36.7 Pulse 60 Resp 18 B/P (MAP) 124/83 (97) Pulse Ox 97 O2 Delivery Room Air Capillary Refill : Less Than 3 Seconds Progress Note : Progress Note Seen and evaluated. IV, labs, LR 1 L bolus, chest x-ray and EKG ordered. O2 sat 97-98% on room air which is reassuring. We will not repeat strep and flu as she had negative results on that at onset of symptoms. Monitor patient. 01/01/04: Have discussed the case with Dr. Ayala [facility]. Her lab results were not available for request yet. They will call the patient with positive or negative. Labs, x-ray and EKG to this point are reassuring. We will give albuterol MDI with spacer and teaching here. She has been instructed on continuation of corn 10 until results noted. Overall doing a bit better after reassurance and fluids. Discharged home with return precautions. Patient verbalize understanding instructions and agreement with plan. ECG Initial ECG Impression Date: Mar 04, 2020 Initial ECG Impression Time: 21:31 Initial ECG Rate: 52 Initial ECG Rhythm: Normal Sinus Initial ECG Impression: Normal Initial ECG Comparisson: No Previous ECG Available Comment Normal sinus rhythm with normal axis. No evidence of ST elevation ND. No previous available for comparison. Interpreted by me. Diagnostic Imaging Diagonstic Imaging: Xray Plain Films/CT/US/NM/MRI: chest Comments NAME: LUI SMITH [facility] REC#: [id number] PT STATUS: REG ER : 1965 PHYSICIAN: SELWYN ECHEVERRIA MD ADMIT DATE: 03/04/20/ER Draft Date of Exam:03/04/20 CHEST 1 VIEW, AP/PA ONLY INDICATION: Shortness of breath. EXAMINATION: Portable chest. FINDINGS: The lungs are well-aerated and clear. Heart is not enlarged. No pneumothorax or pleural effusion. No bony abnormality. IMPRESSION: Negative portable chest. Dictated on workstation # [id number] Dict: 03/04/202156 Trans: 03/04/202158 [facility] [id number] Interpreted by: AARON STEWART MD Electronically signed by: Departure Impression Primary Impression: Viral infection Additional Impression: Chest heaviness Disposition: 01 HOME, SELF-CARE Condition: Improved Departure-Patient Inst. Decision time for Depature: 22:06 Referrals: CAN FLORENTINO MD (PCP/Family) Primary Care Physician Patient Instructions: COVID19, Chest Pain (DC), Viral Syndrome (DC) Add. Discharge Instructions: All discharge instructions reviewed with patient and/or family. Voiced understanding. Use albuterol inhaler 2 puffs every 4 hours as needed for shortness of breath or chest tightness. Drink plenty of fluids and try to eat a normal diet. You should be called by [facility] for positive or negative result. You must remain on quarantine until results are noted. If negative then you will be released. If positive, the health Department will dictate your quarantine timeframe. Return for worse pain, fever, vomiting, weakness, breathing problems or other concerns as needed. You may take Tylenol/acetaminophen 1000 mg every 6-8 hours as needed for fever or pain. Get plenty of rest. SELWYN ECHEVERRIA MD Mar 04, 2020 21:38
[2020-03-04 21:55] LABS: ALANINE AMINOTRANSFERASE 12 U/L (0-55); ALBUMIN 3.8 GM/DL (3.2-4.5); ALKALINE PHOSPHATASE 53 U/L (40-136); BILIRUBIN,TOTAL 0.2 MG/DL (0.1-1.0); BUN/CREATININE RATIO 15; CALCIUM 8.6 MG/DL (8.5-10.1); CARBON DIOXIDE 22 MMOL/L (21-32); CHLORIDE 106 MMOL/L (98-107); CREATININE SERUM 0.92 MG/DL (0.60-1.30); GFR ESTIMATED > 60; GLUCOSE 94 MG/DL (70-105); POTASSIUM 4.1 MMOL/L (3.6-5.0); SODIUM 137 MMOL/L (135-145); TOTAL PROTEIN 6.6 GM/DL (6.4-8.2)
--- NOTE | 2020-03-04 22:00 | Diagnostic Imaging Report ---
INDICATION: Shortness of breath. EXAMINATION: Portable chest. FINDINGS: The lungs are well-aerated and clear. Heart is not enlarged. No pneumothorax or pleural effusion. No bony abnormality. IMPRESSION: Negative portable chest. Dictated by: Dictated on workstation # [id number]
[2020-03-04] MEDS ORDERED: RX-ALBUTEROL INHALER (PROAIR) 8.5 GM IH STA (22:02)
[2020-03-04 22:16] LABS: ERYTHROCYTE SEDIMENTATION RATE 8 MM/HR (0-30)
[2020-03-04 22:25] VITALS: BP 131/84
== END 2020-03-04 22:25 | disposition home or self-care (01) ==
LOC: EDUNIT# 21:08 → ER 21:13
DX: B34.9 Viral infection, unspecified (principal); R07.9 Chest pain, unspecified; K21.9 Gastro-esophageal reflux disease without esophagitis; Z98.84 Bariatric surgery status; Z79.899 Other long term (current) drug therapy; Z88.5 Allergy status to narcotic agent
CPT/HCPCS: 36415; 71045; 80053; 83615; 84145; 84484; 85025; 85379; 85652; 86141; 93005; 93041

== ENCOUNTER → 2020-05-18 | Outpatient (CLI) | payer OTHER ==
[~2020-05-18] MED LIST changes: +FLUO20CA46; +LEVO5TAB12; +PANT40TA3
--- NOTE | 2020-05-18 12:55 | Diagnostic Imaging Report ---
INDICATION: Routine screening. Comparison is made with prior mammogram from 05/06/2019 and 05/04/2018. 2-D and 3-D bilateral screening mammography was performed with CAD. Both breasts remain heterogeneously dense, limiting the sensitivity of mammography. There is a density in the central left breast at the nipple line on the CC view which appears slightly more prominent than prior exams. No definite correlate on the MLO view is identified. Right breast is unremarkable. There are occasional benign calcifications. No malignant-appearing microtest stations are seen. Axillae are unremarkable. IMPRESSION: BI-RADS 0 Left breast density. Additional views recommended for further evaluation. ACR BI-RADS Category 0: Incomplete. (Needs additional imaging evaluation). Result letter will be mailed to the patient. Note: At least 10% of breast cancer is not imaged by mammography. Dictated by: Dictated on workstation # [id number]
== END ==
LOC: RAD 08:04
PROVIDERS: ATTEND Obstetrics & Gynecology
DX: Z12.31 Encounter for screening mammogram for malignant neoplasm of breast (principal); R92.8 Other abnormal and inconclusive findings on diagnostic imaging of breast
CPT/HCPCS: 77063; 77067

== ENCOUNTER → 2020-05-25 | Outpatient (CLI) | payer OTHER ==
--- NOTE | 2020-05-25 16:49 | Diagnostic Imaging Report ---
EXAM: Ultrasound left breast, limited. INDICATION: Abnormal mammogram FINDINGS: Screening mammogram performed on 05/18/2020 noted a small density in the central portion of the left breast. The diagnostic mammogram performed prior this study failed to show any sign of malignancy. On this exam, there is no discrete solid or cystic mass identified. I suspect that the density seen on the screening mammogram is related to superimposition of the heterogeneously dense fibroglandular tissue in the left breast. Even so, it may prove worthwhile to have a short-term (6 month) follow-up mammogram of the left breast for continued evaluation. IMPRESSION: There is no evidence of malignancy. Recommendations as above. ACR BI-RADS Category 3: Probably benign findings. Result letter will be mailed to the patient. Note: At least 10% of breast cancer is not imaged by mammography. Dictated by: Dictated on workstation # [id number]
--- NOTE | 2020-05-25 22:52 | Diagnostic Imaging Report ---
Unilateral diagnostic left mammogram INDICATION: Abnormal screening mammogram The current study was also evaluated with a Computer Aided Detection (CAD) system. The recent screening mammogram performed on 05/18/2020 noted a density in the central left breast at the nipple line. This is only seen on the CC view. The compression and rolled views of this area show that the density is not as conspicuous. This finding cannot be identified on the true lateral view either. This density may merely be secondary to superimposition of the heterogeneously dense fibroglandular tissue. Even so, I would recommend that ultrasound be performed for further study. IMPRESSION: There is no evidence for malignancy. Ultrasound would be recommended for further evaluation. ACR BI-RADS Category 0 : Needs additional imaging Result letter will be mailed to the patient. Note: At least 10% of breast cancer is not imaged by mammography. Dictated by: Dictated on workstation # [id number]
== END ==
LOC: RAD 12:32
PROVIDERS: ATTEND Obstetrics & Gynecology
DX: R92.8 Other abnormal and inconclusive findings on diagnostic imaging of breast (principal)
CPT/HCPCS: 76642; 77065; G0279

== ENCOUNTER → 2021-02-08 | Outpatient (CLI) | payer OTHER ==
[~2021-02-08] MED LIST changes: -PANT40TA3; +PANT40TA52
--- NOTE | 2021-02-08 11:00 | Diagnostic Imaging Report ---
PROCEDURE: MRI lumbar spine. TECHNIQUE: Multiplanar, multisequence MRI of the lumbar spine was performed without contrast. INDICATION: Spondylolisthesis, slipped disc, pain in the lumbar spine for 2 months. COMPARISON: CT of the abdomen and pelvis from 09/09/2019 FINDINGS: The last well-formed disc space will be labeled L5-S1 for the purposes of this examination. There is no spondylolisthesis. There is mild disc height loss at L3-4 and L4-5. Vertebral body heights are preserved. No acute fracture is seen. There is mild bone marrow edema and fluid at the L3-4 facets bilaterally. The conus terminates in appropriate position. Soft tissues about the lumbar spine demonstrate no acute abnormality. T12-L1: No significant disc bulge. No spinal canal or foraminal stenosis. L1-2: No significant disc bulge. No spinal canal or foraminal stenosis. L2-3: No significant disc bulge. No spinal canal or foraminal stenosis. L3-4: Mild diffuse disc bulge with facet arthropathy and ligamentous infolding. No spinal canal stenosis. Mild right foraminal narrowing and moderate left foraminal stenosis. L4-5: Diffuse disc bulge with facet arthropathy and ligamentous infolding. Mild spinal canal and lateral recess narrowing bilaterally. Mild bilateral foraminal narrowing. L5-S1: No significant disc bulge. No spinal canal stenosis. No significant foraminal stenosis. IMPRESSION: 1. Mild degenerative changes in the lumbar spine causing mild spinal canal narrowing at L4-5. 2. Multilevel foraminal narrowing with moderate left foraminal stenosis at L3-4. 3. Active facet arthropathy at L3-4 bilaterally. Dictated by: Dictated on workstation # [id number]
== END ==
LOC: RAD 09:26
PROVIDERS: ATTEND Orthopaedic Surgery Orthopaedic Surgery of the Spine
DX: M47.816 Spondylosis without myelopathy or radiculopathy, lumbar region (principal); M48.061 Spinal stenosis, lumbar region without neurogenic claudication; M43.16 Spondylolisthesis, lumbar region
CPT/HCPCS: 72148

== ENCOUNTER → 2021-05-17 | Outpatient (CLI) | payer OTHER | LOC: LABNPT 06:50 | PROVIDERS: ATTEND Orthopaedic Surgery Orthopaedic Surgery of the Spine | DX: Z01.812 Encounter for preprocedural laboratory examination (principal); Z20.822 Contact with and (suspected) exposure to COVID-19 | CPT/HCPCS: 87635 ==

== ENCOUNTER → 2021-10-02 | Outpatient (CLI) | payer OTHER | LOC: LABNPT 05:54 | PROVIDERS: ATTEND Orthopaedic Surgery | DX: Z01.812 Encounter for preprocedural laboratory examination (principal); Z20.822 Contact with and (suspected) exposure to COVID-19 | CPT/HCPCS: 87635 ==

== ENCOUNTER → 2021-10-08 | Outpatient (CLI) | payer OTHER ==
--- NOTE | 2021-10-08 12:21 | Diagnostic Imaging Report ---
Indication: Routine screening. Comparison is made with prior mammogram 05/18/2020 and 05/06/2019. 2-D and 3-D bilateral screening mammography was performed with CAD. Both breast are heterogeneously dense, limiting the sensitivity of mammography. The parenchymal pattern is stable. No mass or malignant-appearing microcalcifications are seen. Axillae are unremarkable. IMPRESSION: BI-RADS Category 1 No mammographic features suspicious for malignancy are identified. ACR BI-RADS Category 1: Negative. Result letter will be mailed to the patient. Note: At least 10% of breast cancer is not imaged by mammography. Dictated by: Dictated on workstation # [id number]
== END ==
LOC: RAD 11:00
PROVIDERS: ATTEND Nurse Practitioner Family
DX: Z12.31 Encounter for screening mammogram for malignant neoplasm of breast (principal)
CPT/HCPCS: 77063; 77067

== ENCOUNTER 2022-04-21 11:44 | Emergency (ER) | payer OTHER ==
[~2022-04-21] VITALS: Ht 154.9 cm; Wt 70.4 kg
[~2022-04-21 11:44] MED LIST changes: -FLUO20CA46; +FLUO20CA48
[2022-04-21] MEDS ORDERED: fentaNYL INJ 100 MCG/2 ML AMP IVP ONE (12:15)
[2022-04-21] MEDS ORDERED: ASPIRIN 81 MG CHEW (CHILDREN'S ASA) PO ONE (12:15)
--- NOTE | 2022-04-21 12:16 | ED Cardiac General ---
History of Present Illness General Chief Complaint: Chest Pain Stated Complaint: CP Source: patient Exam Limitations: no limitations History of Present Illness Date Seen by Provider: April 21, 2022 Time Seen by Provider: 11:59 ASA po TUBE BENDER HAND: No Allergies and Home Medications Allergies Coded Allergies: loracarbef (Unverified Allergy, Mild, HIVES, pt has received Ancef in the past, 03/04/19) morphine (Unverified Allergy, Mild, ITCHING, Pt has rec Lortab & Percocet in the past, 03/04/19) Patient Home Medication List Home Medication List Reviewed: Yes Alprazolam (Alprazolam) 0.5 Mg Tablet, 0.5 MG PO HS, (Reported) Entered as Reported by: SERJIO CONNORS on 05/20/18951 Estradiol (Estrace Tablet) 1 Mg Tablet, 1 MG PO DAILY, (Reported) Entered as Reported by: SERIJO CONNORS on 05/20/18951 Fexofenadine/Pseudoephedrine (Saloni-D 24 Hour Tablet) 1 Each Tab.er.24h, 1 EACH PO DAILY, (Reported) Entered as Reported by: SERJIO CONNORS on 05/20/18951 Fluoxetine HCl (Fluoxetine HCl) 20 Mg Capsule, (Reported) Entered as Reported by: VAN MORRISON on 03/04/202123 Levocetirizine Dihydrochloride (Levocetirizine Dihydrochloride) 5 Mg Tablet, (Reported) Entered as Reported by: VAN MORRISON on 03/04/202123 Multivitamin (Super Multivitamin) 1 Each Tablet, 1 EACH PO DAILY, (Reported) Entered as Reported by: SERJIO CONNORS on 05/20/18951 Omeprazole (Omeprazole) 20 Mg Capsule.dr, 20 MG PO DAILY, (Reported) Entered as Reported by: SERJIO CONNORS on 05/20/18951 Pantoprazole Sodium (Pantoprazole Sodium) 40 Mg Tablet.dr, (Reported) Entered as Reported by: VAN MORRISON on 03/04/202123 Vit B Comp/C/FA/Iron/Vit E (Vitamin B Complex Tablet) 1 Each Tablet, 1 EACH PO DAILY, (Reported) Entered as Reported by: SERJIO CONNORS on 02/28/19 1013 Review of Systems Review of Systems Constitutional: no symptoms reported EENTM: No Symptoms Reported Respiratory: No Symptoms Reported Past Guxfpbi-Zyntmv-Frlwtk Hx Patient Social History Tobacco Use?: No Use of E-Cig and/or Vaping dev: No Substance use?: No Alcohol Use?: No Pt feels they are or have been: No Immunizations Up To Date Tetanus Booster (TDap): Unknown Influenza Vaccine Up-to-Date: No; Not Current Second COVID19 Vaccination Marcelo: 10/20 Seasonal Allergies Seasonal Allergies: Yes Past Medical History Surgeries: Yes ( ELDA. 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 Reproductive Disorders: Ovarian Cyst [employer] History: Hysterectomy Sexually Transmitted Disease: No HIV/AIDS: No Genitourinary: No Gastrointestinal: Yes Gastroesophageal Reflux Musculoskeletal: No Endocrine: No HEENT: No Loss of Vision: Denies Hearing Impairment: Denies Cancer: No Psychosocial: Yes Sleep Difficulties, Anxiety Integumentary: No Blood Disorders: No Adverse Reaction/Blood Tranf: No (N/A) Physical Exam Vital Signs Vital Signs - First Documented 04/21/22 12:48 Temp 36.8 Pulse 63 Resp 20 B/P (MAP) 147/90 (109) Pulse Ox 100 O2 Delivery Room Air Capillary Refill : Height, Weight, BMI Height: 5'1.00" Weight: 138lbs. 0.0oz. 62.434937kt; 26.00 BMI Method:Stated Progress/Results/Core Measures Results/Orders Lab Results Laboratory Tests Test 04/21/22 11:54 Range/Units White Blood Count 6.3 4.3-11.0 10^3/uL Red Blood Count 4.54 3.80-5.11 10^6/uL Hemoglobin 13.9 11.5-16.0 g/dL Hematocrit 42 35-52 % Mean Corpuscular Volume 93 80-99 fL Mean Corpuscular Hemoglobin 31 25-34 pg Mean Corpuscular Hemoglobin Concent 33 32-36 g/dL Red Cell Distribution Width 14.6 H 10.0-14.5 % Platelet Count 265 130-400 10^3/uL Mean Platelet Volume 10.4 9.0-12.2 fL Immature Granulocyte % (Auto) 1 % Neutrophils (%) (Auto) 50 42-75 % Lymphocytes (%) (Auto) 36 12-44 % Monocytes (%) (Auto) 11 0-12 % Eosinophils (%) (Auto) 2 0-10 % Basophils (%) (Auto) 1 0-10 % Neutrophils # (Auto) 3.2 1.8-7.8 10^3/uL Lymphocytes # (Auto) 2.3 1.0-4.0 10^3/uL Monocytes # (Auto) 0.7 0.0-1.0 10^3/uL Eosinophils # (Auto) 0.1 0.0-0.3 10^3/uL Basophils # (Auto) 0.0 0.0-0.1 10^3/uL Immature Granulocyte # (Auto) 0.1 0.0-0.1 10^3/uL Prothrombin Time 13.7 12.2-14.7 SEC INR Comment 1.0 0.8-1.4 Activated Partial Thromboplast Time 28 24-35 SEC D-Dimer 0.28 0.00-0.49 UG/ML Sodium Level 141 135-145 MMOL/L Potassium Level 3.9 3.6-5.0 MMOL/L Chloride Level 106 98-107 MMOL/L Carbon Dioxide Level 23 21-32 MMOL/L Anion Gap 12 5-14 MMOL/L Blood Urea Nitrogen 8 7-18 MG/DL Creatinine 0.76 0.60-1.30 MG/DL Estimat Glomerular Filtration Rate 91 BUN/Creatinine Ratio 11 Glucose Level 90 70-105 MG/DL Calcium Level 9.0 8.5-10.1 MG/DL Corrected Calcium 9.0 8.5-10.1 MG/DL Magnesium Level 1.9 1.6-2.4 MG/DL Total Bilirubin 0.5 0.1-1.0 MG/DL Aspartate Amino Transf (AST/SGOT) 23 5-34 U/L Alanine Aminotransferase (ALT/SGPT) 19 0-55 U/L Alkaline Phosphatase 55 40-136 U/L Total Creatine Kinase 48 29-168 U/L Creatine Kinase MB 0.5 <6.6 NG/ML Myoglobin 18.5 10.0-92.0 NG/ML Troponin I < 0.028 <0.028 NG/ML B-Type Natriuretic Peptide 44.0 <100.0 PG/ML Total Protein 7.2 6.4-8.2 GM/DL Albumin 4.0 3.2-4.5 GM/DL Lipase 23 8-78 U/L My Orders Orders - KAHLIL FISCHER APRN Cbc With Automated Diff (04/21/22 12:01) Magnesium (04/21/22 12:01) Chest 1 View, Ap/Pa Only (04/21/22 12:01) Comprehensive Metabolic Panel (04/21/22 12:01) Myoglobin Serum (04/21/22 12:01) Protime With Inr (04/21/22 12:01) Partial Thromboplastin Time (04/21/22 12:01) O2 (04/21/22 12:01) Monitor-Rhythm Ecg Trace Only (04/21/22 12:01) Ed Iv/Invasive Line Start (04/21/22 12:01) Creatine Kinase (04/21/22 12:01) Creatine Kinase Mb (04/21/22 12:01) Bnp Zapata (04/21/22 12:01) Fibrin Degradation Products (04/21/22 12:01) Troponin I Zapata (04/21/22 12:01) Aspirin Chewable Tablet (Baby Aspirin Ch (04/21/22 12:15) Fentanyl Inj (Sublimaze Injection) (04/21/22 12:15) Lipase (04/21/22 12:14) Lidocaine 2% Viscous 15 Ml (Xylocaine Vi (04/21/22 13:00) Antacid Suspension (Mylanta Suspension (04/21/22 13:00) Medications Given in ED Current Medications Medications Dose Ordered Sig/Dion Route Start Time Stop Time Status Last Admin Dose Admin Al Hydrox/Mg Hydrox/Simethicone 30 ml ONCE ONCE PO 04/21/22 13:00 04/21/22 13:01 DC 04/21/22 13:09 30 ML Aspirin 324 mg ONCE ONCE PO 04/21/22 12:15 04/21/22 12:16 DC 04/21/22 12:36 324 MG Fentanyl Citrate 50 mcg ONCE ONCE IVP 04/21/22 12:15 04/21/22 12:16 DC 04/21/22 12:36 50 MCG Lidocaine HCl 15 ml ONCE ONCE PO 04/21/22 13:00 04/21/22 13:01 DC 04/21/22 13:09 15 ML Vital Signs/I&O 04/21/22 12:48 Temp 36.8 Pulse 63 Resp 20 B/P (MAP) 147/90 (109) Pulse Ox 100 O2 Delivery Room Air Departure Communication (Admissions) Time/Spoke to Consulting Phy: 12:[address] Mahmood, recommended giving patient a GI cocktail to evaluate if she has any changes in her symptomology. With 3-day history of the cardiac symptoms this is unlikely cardiac related however we will continue to monitor while waiting for GI cocktail. Impression Primary Impression: Non-cardiac chest pain Additional Impression: Gastritis Disposition: HOME, SELF-CARE Condition: Improved Departure-Patient Inst. Decision time for Depature: 13:46 Referrals: CAN MAHMOOD MD (PCP/Family) Primary Care Physician Patient Instructions: Gastritis ED Add. Discharge Instructions: Plan: 1. Follow up with Dr. Mahmood later this week. 2. Continue your home acid reducing medication (Omeprazole/Pantoprazole) as directed. Take at least one hour before eating and using Carafate. 3. Take Carafate 1 gm 30 minutes prior to meals. 4. Continue your B12 daily. 5. Return for any new, concerning, or worsening symptoms STOP your Estradiol and take only your Estrogen-Testerone combination. All discharge instructions reviewed with patient and/or family. Voiced understanding. Scripts Sucralfate (Sucralfate) 1 Gram Tablet 1 GM PO AC for 7 Days, #21 TAB 0 Refills Prov: KAHLIL FISCHER RISK CONTROL CONSULTANT 04/21/22 KAHLIL FISCHER RISK CONTROL CONSULTANT April 21, 2022 12:16
[2022-04-21 12:20] LABS: BASOPHILS % (AUTO) 1 % (0-10); EOSINOPHILS # (AUTO) 0.1 10^3/uL (0.0-0.3); EOSINOPHILS % (AUTO) 2 % (0-10); HEMATOCRIT 42 % (35-52); HEMOGLOBIN 13.9 g/dL (11.5-16.0); LYMPHOCYTES # (AUTO) 2.3 10^3/uL (1.0-4.0); LYMPHOCYTES % (AUTO) 36 % (12-44); MEAN CORPUSCULAR HEMOGLOBIN 31 pg (25-34); MEAN CORPUSCULAR HGB CONC 33 g/dL (32-36); MEAN CORPUSCULAR VOLUME 93 fL (80-99); MEAN PLATELET VOLUME 10.4 fL (9.0-12.2); MONOCYTES # (AUTO) 0.7 10^3/uL (0.0-1.0); MONOCYTES % (AUTO) 11 % (0-12); NEUTROPHILS # (AUTO) 3.2 10^3/uL (1.8-7.8); NEUTROPHILS % (AUTO) 50 % (42-75); PLATELET COUNT 265 10^3/uL (130-400); WHITE BLOOD COUNT 6.3 10^3/uL (4.3-11.0)
[2022-04-21 12:25] LABS: PROTHROMBIN TIME PATIENT 13.7 SEC (12.2-14.7)
[2022-04-21 12:29] LABS: POTASSIUM 3.9 MMOL/L (3.6-5.0)
[2022-04-21 12:32] LABS: TOTAL PROTEIN 7.2 GM/DL (6.4-8.2)
[2022-04-21 12:34] LABS: BILIRUBIN,TOTAL 0.5 MG/DL (0.1-1.0)
[2022-04-21 12:35] LABS: CREATININE SERUM 0.76 MG/DL (0.60-1.30)
[2022-04-21 12:36] LABS: LIPASE 23 U/L (8-78)
[2022-04-21 12:38] LABS: MAGNESIUM 1.9 MG/DL (1.6-2.4)
--- NOTE | 2022-04-21 12:43 | Diagnostic Imaging Report ---
INDICATION: Chest pain. EXAMINATION: Portable chest at 12:41 p.m. FINDINGS: Heart size and pulmonary vascularity are normal. Lungs are clear. There are no effusions or pneumothoraces. IMPRESSION: No acute abnormalities in the chest. Dictated by: Dictated on workstation # [id number]
[2022-04-21 12:48] LABS: CREATINE KINASE MB 0.5 NG/ML (<6.6)
[2022-04-21] MEDS ORDERED: LIDOCAINE 2% VISCOUS 15 ML UDC PO ONE (13:00)
[2022-04-21] MEDS ORDERED: ANTACID SUSP 30 ML UDC (MYLANTA) PO ONE (13:00)
[2022-04-21] MEDS ORDERED: SUCR1TAB PO (13:54)
[2022-04-21] MEDS ORDERED: PANTOPRAZOLE 40 MG (PROTONIX) VIAL IV ONE (14:00)
[2022-04-21 14:13] VITALS: BP 128/82
== END 2022-04-21 14:12 | disposition home or self-care (01) ==
LOC: EDUNIT# 11:44 → ER 11:46
DX: K29.70 Gastritis, unspecified, without bleeding (principal)
CPT/HCPCS: 36415; 71045; 80053; 82550; 82553; 83690; 83735; 83874; 83880; 84484; 85025; 85379; 85610; 85730; 93005; 93041

== ENCOUNTER → 2022-10-28 | Outpatient (CLI) | payer OTHER ==
[~2022-10-28] MED LIST changes: +SUCR1TAB PO
--- NOTE | 2022-10-29 14:11 | Diagnostic Imaging Report ---
EXAMINATION: 3D bilateral screening mammogram with CAD. INDICATION: Screening. COMPARISON: This study was compared to the prior exams of 10/08/2021, 05/18/2020, and 05/06/2019. PERSONAL HISTORY: At this time, there are no current complaints. FINDINGS: The fibroglandular tissue in both breasts is heterogeneously dense. This does limit the sensitivity of this exam. When compared to the previous study there does not appear to have been any significant change. There is no primary or secondary sign of malignancy noted. IMPRESSION: There is no evidence for malignancy. ACR BI-RADS Category 1: Negative. Result letter will be mailed to the patient. Note: At least 10% of breast cancer is not imaged by mammography. Dictated by: Dictated on workstation # [id number]
== END ==
LOC: RAD 11:21
PROVIDERS: ATTEND Obstetrics & Gynecology
DX: Z12.31 Encounter for screening mammogram for malignant neoplasm of breast (principal)
CPT/HCPCS: 77063; 77067